=== PATIENT | female | born 1955 | race African-American/Black ===

== ENCOUNTER → 2016-11-16 | Day surgery (SDC) | payer OTHER ==
[~2016-11-16] VITALS: Ht 175.3 cm; Wt 74.8 kg
[~2016-11-16] MED LIST: /PANT40TA OR; AMLO10TA2 PO; AMLO5TAB2 PO; ASCO25TA PO; ASPI325T OR; ASPI81TA83 OR; CALCTAB43 PO; CARV12.5 PO; CIPR25SS OR; COLA100C3 PO; DOCU100C PO; DRIS50002 PO; ECOT81TA5 PO; FERR1TAB7 PO; FERR324T12 PO; FERR325T OR; FOLI1TAB2 PO; FOSA70TA PO; GLUC1000 PO; LIDOCAINE 1% MDV 20ML VIAL As Ordered ONE; LIDOCAINE 1% SDV INJ 30 ML VIAL As Ordered ONE; LIDOCAINE 2% INJ 100 MG/5 ML SDV (FOR ANES.) As Ordered ONE; LISI10TA4 OR; LOPR50TA OR; LOPR50TA PO; LR 1,000 ML IV SCH; METF1000 PO; MICA80TA PO; MIDAZOLAM INJ 2 MG/2 ML VIAL (J2250) As Ordered ONE; NITR0.4S SL; PERC5TAB6 PO; POTA10CA PO; PRAV1TAB39 PO; PROPOFOL 200 MG/20 ML VIAL As Ordered ONE; SENS60TA PO; SIMV40TA2 PO; TORS10TA3 PO; TRAV04OPD OU; TYLE325T5 PO; VALS40TA OR; VITA10002 PO; VITA250L PO; fentaNYL 100 MCG/2 ML INJECTION (J3010) As Ordered ONE
[2016-11-16 13:50] VITALS: BP 141/71
--- NOTE | 2016-11-16 14:33 | REP ---
SPECIMEN RADIOGRAPH RIGHT BREAST NEEDLE LOCALIZATION BIOPSY: 11/16/2016. Clinical history: Clustered microcalcifications upper outer quadrant right breast. Specimen radiograph shows the hook wire in place within the specimen. Adjacent to the hook wire is a clustered group of microcalcifications targeted for this biopsy. Impression: Successful targeting and excisional biopsy of a clustered microcalcific target in the right breast. Signed by Adrian Moore MD 11/16/2016 05:52 P
--- NOTE | 2016-11-16 16:09 | REP ---
RIGHT BREAST LOCALIZATION: The procedure was performed under the direct supervision of Dr. Moore. The patient has a history of a tight grouping of heterogenous microcalcifications at the 12 o'clock position on the right breast seen on a previous mammogram dated 07/31/2016. A stereotactic right breast biopsy was attempted on 08/17/2016, however there was not enough breast tissue thickness to allow for throw of the needle. The risks and benefits of the procedure were explained to the patient and informed consent was obtained. A cranial caudal approach was utilized. The calcifications were localized using mammographic guidance. The skin was prepped and draped in a sterile fashion. 1% Lidocaine was used a local anesthetic. A 7.5 cm Grinnell needle wire system was inserted. Followup mammographic images demonstrate good needle placement. The patient tolerated the procedure well and there were no immediate complications. Reviewed by KERRY Gaviria 11/16/2016 04:54 PEdited and Signed by Adrian Moore MD 11/16/2016 05:46 P
--- NOTE | 2016-11-16 22:52 | RO ---
DATE OF PROCEDURE: 11/16/2016 PREOPERATIVE DIAGNOSIS: Abnormal mammographic microcalcifications right breast, upper outer quadrant. POSTOPERATIVE DIAGNOSIS: Abnormal mammographic microcalcifications right breast, upper outer quadrant. PROCEDURE PERFORMED: Needle directed excisional biopsy of microcalcifications right breast. SURGEON: Dr. Lorenzo Garland QUALITY CONTROL: ANESTHESIA: Local with monitored anesthesia care. INDICATIONS FOR PROCEDURE: The patient is a 60-year-old woman who had undergone mammography with finding of a new cluster of microcalcifications in the upper outer quadrant of the right breast. A stereotactic biopsy was not technically possible because of inadequate breast thickness, and she is now for a needle directed excisional biopsy of calcifications. The patient was sent to the x-ray department where a localizing wire was placed in the right breast. She was then taken to the operating room and placed on the table in a supine position. She received sedation from anesthesia. The right breast, including the localizing wire, was prepped with Chloraprep and draped sterilely. Inspection revealed that the wire entered the upper outer quadrant of the right breast. It was directed at a fairly shallow angle inferiorly and laterally. With manipulation of the breast, there did appear to be some play in the positioning of the wire. Local anesthesia was achieved with 1% Xylocaine without epinephrine. An approximately 3 cm skin incision was made beginning at the localizing wire and extending laterally. The incision was deepened into the subcutaneous tissues. A core of tissue was then excised using scissors. This core was approximately 5-6 cm in length x 2-3 cm in diameter and extended down past the tip of the localizing wire. The needle was then removed and the wire was cut for convenience. A specimen mammogram was obtained with the ViewCast device. The imaging showed that the cluster of microcalcifications was contained within the specimen just past the tip of the hook wire. The specimen was sent for permanent pathology. The wound was inspected and two small bleeding vessels were oversewn with [id number] sutures of #3-0 chromic. A careful inspection of the wound was carried out and several small bleeders were controlled with the electrocautery. Once hemostasis was ensured, the deep portions of the wound were closed with #3-0 chromic. The subcutaneous tissues were approximated with #3-0 chromic and the skin edges were approximated with a running subcuticular #4-0 Vicryl and Steri-Strips. A light dressing was applied. The patient tolerated the procedure well without apparent complication.
== END | disposition home or self-care (01) ==
LOC: M SDC 08:06
PROVIDERS: ATTEND Surgery
DX: R92.0 Mammographic microcalcification found on diagnostic imaging of breast (principal); J34.9 Unspecified disorder of nose and nasal sinuses; R91.8 Other nonspecific abnormal finding of lung field; D64.9 Anemia, unspecified; E11.9 Type 2 diabetes mellitus without complications; I10 Essential (primary) hypertension; E78.5 Hyperlipidemia, unspecified; N20.0 Calculus of kidney; E21.3 Hyperparathyroidism, unspecified; K57.32 Diverticulitis of large intestine without perforation or abscess without bleeding; Z88.8 Allergy status to other drugs, medicaments and biological substances; Z79.899 Other long term (current) drug therapy; Z79.82 Long term (current) use of aspirin; Z85.40 Personal history of malignant neoplasm of unspecified female genital organ; Z92.3 Personal history of irradiation; Z90.710 Acquired absence of both cervix and uterus; Z87.891 Personal history of nicotine dependence

== ENCOUNTER → 2017-01-16 | Outpatient (REF) | payer OTHER ==
[~2017-01-16] MED LIST changes: -LIDOCAINE 1% MDV 20ML VIAL As Ordered ONE; -LIDOCAINE 1% SDV INJ 30 ML VIAL As Ordered ONE; -LIDOCAINE 2% INJ 100 MG/5 ML SDV (FOR ANES.) As Ordered ONE; -LR 1,000 ML IV SCH; -MIDAZOLAM INJ 2 MG/2 ML VIAL (J2250) As Ordered ONE; -PROPOFOL 200 MG/20 ML VIAL As Ordered ONE; -fentaNYL 100 MCG/2 ML INJECTION (J3010) As Ordered ONE
[2017-01-16 13:01] LABS: BASO % 0.5 % (0.0-1.0); EOS # 0.1 K/mm3 (0.0-0.50); EOS % 1.5 % (0.0-3.0); LARGE UNSTAINED CELL # 0.1 K/mm3 (0.0-0.4); LARGE UNSTAINED CELL % 2.3 % (0.0-4.0); LYMPH # 1.6 K/mm3 (1.5-4.5); LYMPH % 32.3 % (24.0-44.0); MEAN CORPUSCULAR HEMOGLOBIN 26.4 pg (27.0-33.0); MEAN CORPUSCULAR HGB CONC 32.4 g/dl (32.0-36.5); MEAN CORPUSCULAR VOLUME 81.3 fl (80.0-96.0); MONO # 0.3 K/mm3 (0.0-0.8); MONO % 6.2 % (0.0-5.0); NEUTROPHILS # 2.7 K/mm3 (1.8-7.7); NEUTROPHILS % 57.2 % (36.0-66.0); PLATELET COUNT, AUTOMATED 246 k/mm3 (150-450); RED CELL DISTRIBUTION WIDTH 17.3 % (11.5-14.5); WHITE BLOOD COUNT 4.7 K/mm3 (4.0-10.0)
[2017-01-16 13:30] LABS: ALBUMIN/GLOBULIN RATIO 1.11 (1.00-1.93); ALKALINE PHOSPHATASE 114 U/L (45-117); ALT/SGPT 21 U/L (12-78); ANION GAP 7 MEQ/L (8-16); AST/SGOT 17 U/L (15-37); BILIRUBIN,TOTAL 0.5 MG/DL (0.2-1.0); BLOOD UREA NITROGEN 13 MG/DL (7-18); CALCIUM LEVEL 12.2 MG/DL (8.8-10.2); CARBON DIOXIDE LEVEL 28 MEQ/L (21-32); CHLORIDE LEVEL 105 MEQ/L (98-107); CHOLESTEROL LEVEL 152 MG/DL (<200); CREATININE FOR GFR 0.66 MG/DL (0.55-1.02); FERRITIN 22 NG/ML (8-252); FREE T4 1.43 NG/DL (0.76-1.46); GLOMERULAR FILTRATION RATE > 60.0 (>45); GLUCOSE, FASTING 114 MG/DL (80-110); PERCENT SATURATION 13.7 % (13.2-37.4); POTASSIUM SERUM 4.4 MEQ/L (3.5-5.1); SODIUM LEVEL 140 MEQ/L (136-145); TOTAL IRON BINDING CAPACITY 388 UG/DL (250-450); TOTAL PROTEIN 7.6 GM/DL (6.4-8.2); TRIGLYCERIDES LEVEL 53 MG/DL (<150)
[2017-01-18 12:27] LABS: GAMMA GLOBULIN % 16.9 % (11.1-18.8)
[2017-01-18 12:28] LABS: ALBUMIN 4.18 GM/DL (3.29-5.55)
== END ==
LOC: M SFHCPLAZ 09:40
PROVIDERS: ATTEND Family Medicine
DX: D50.9 Iron deficiency anemia, unspecified (principal); E21.3 Hyperparathyroidism, unspecified; E78.2 Mixed hyperlipidemia

== ENCOUNTER → 2017-01-29 | Outpatient (CLI) | payer OTHER ==
--- NOTE | 2017-01-30 01:36 | REP ---
Clinical: kidney stones. Technique: Supine abdominal x-ray. Findings: Evaluation is limited by technique. Small left renal calculi are suggested. Right renal calculi or ureteral stones cannot be excluded. Bowel pattern is nonspecific. Post surgical changes are appreciated. Skeletal structures are intact. Impression: Small left renal stones suggested. Further evaluation of the urinary tract system is limited by technique. Signed by Liban Bower MD 01/30/2017 01:28 A
== END ==
LOC: M SMT 09:33
PROVIDERS: ATTEND Urology
DX: N20.0 Calculus of kidney (principal)

== ENCOUNTER → 2017-02-13 | Outpatient (CLI) | payer OTHER ==
--- NOTE | 2017-02-13 14:26 | REP ---
Clinical: Pain. Technique: Frontal view of the pelvis with neutral and frog lateral views of the bilateral hips. Findings: Early moderate arthritic degenerative changes of the bilateral hip joints includes mild joint space narrowing, increase sclerosis to the acetabular roof with marginal spurring and subtle subchondral cystic changes (right greater than left). No acute fracture or dislocation. Impression: Early moderate arthritic degenerative changes (right greater than left). Signed by Liban Bower MD 02/13/2017 02:18 P
--- NOTE | 2017-02-13 15:12 | REP ---
No clinical: Pain. Mass. Technique: Frontal view of the chest with multiple views of the right and left hemithoraces. Findings: Frontal view of the chest demonstrates no acute cardiopulmonary process. Multiple views of the right and left hemithoraces demonstrates no obvious acute rib fracture or pathology. Impression: Normal bilateral rib series Signed by Liban Bower MD 02/13/2017 03:03 P
== END ==
LOC: M RAD 13:23
PROVIDERS: ATTEND Family Medicine
DX: R19.00 Intra-abdominal and pelvic swelling, mass and lump, unspecified site (principal); M16.0 Bilateral primary osteoarthritis of hip

== ENCOUNTER → 2017-02-15 | Outpatient (CLI) | payer OTHER ==
[~2017-02-15] MED LIST changes: +ASPI1TAB PO; -CALCTAB43 PO; +CALCTAB74 PO; -COLA100C3 PO; +COLA100C5 PO; -DOCU100C PO; +DOCU100C16 PO; +FERR325T3 PO; -FOLI1TAB2 PO; +FOLI1TAB4 PO; -METF1000 PO; +METF10004 PO; +PERC5TAB12 PO; -PERC5TAB6 PO; +SENS90TA PO; +STOO100C PO; +VITA500T PO
--- NOTE | 2017-02-15 10:28 | REP ---
Clinical: Right flank mass. Technique: Real time juarez scale and color Doppler evaluation using linear high frequency transducer. Comparison: Multiple CT examinations dating back through 04/12/2015. Findings: A hypoechoic, solid, vascular mass is identified at the level of the kidney which appears to be within the intercostal right flank and measures 2.7 x 2.3 x 3.1 cm. The lesion appears relatively stable when compared to CTs through 04/12/2015. Impression: 3 cm hypoechoic solid vascular nodule in the right flank intercostal space as described above. Surgical excision/biopsy may be warranted. Differential diagnosis includes granuloma as well as slow-growing metastatic focus. Signed by Liban Bower MD 02/15/2017 10:20 A
== END ==
LOC: M RAD 09:27
PROVIDERS: ATTEND Family Medicine
DX: R19.00 Intra-abdominal and pelvic swelling, mass and lump, unspecified site (principal)

== ENCOUNTER 2017-03-23 09:26 | Day surgery (SDC) | payer OTHER ==
[~2017-03-23] VITALS: Ht 175.3 cm; Wt 74.8 kg
[2017-03-23] MEDS ORDERED: LR 1,000 ML IV SCH ×2 (09:45→13:00)
[2017-03-23] MEDS ORDERED: MIDAZOLAM INJ 2 MG/2 ML VIAL (J2250) As Ordered ONE (09:46)
[2017-03-23] MEDS ORDERED: PROPOFOL 200 MG/20 ML VIAL As Ordered ONE (09:46)
[2017-03-23] MEDS ORDERED: fentaNYL 100 MCG/2 ML INJECTION (J3010) As Ordered ONE ×2 (09:46→11:33)
[2017-03-23] MEDS ORDERED: LIDOCAINE 2% INJ 100 MG/5 ML SDV (FOR ANES.) As Ordered ONE (09:46)
[2017-03-23] MEDS ORDERED: LR 1,000 ML IV ONE (10:00)
[2017-03-23] MEDS ORDERED: BUPIVACAINE HCL 0.25% 30 ML VIAL As Ordered ONE (10:39)
[2017-03-23] MEDS ORDERED: ROCURONIUM BROMIDE 50 MG/5 ML VIAL/SYRINGE As Ordered ONE (10:56)
[2017-03-23] MEDS ORDERED: ePHEDrine SULFATE 25 MG/5 ML(5MG/ML) SYRINGE As Ordered ONE ×2 (11:27→12:10)
[2017-03-23] MEDS ORDERED: ONDANSETRON 4MG/2ML VIAL (J2405) As Ordered ONE (12:03)
[2017-03-23] MEDS ORDERED: NEOSTIGMINE 1MG/ML 5 ML SYRINGE (J2710) As Ordered ONE (12:04)
[2017-03-23] MEDS ORDERED: GLYCOPYRROLATE INJ 0.2 MG/ML 2 ML VIAL As Ordered ONE (12:04)
[2017-03-23] MEDS ORDERED: PHENYLephrine HCL 500 MCG/5 ML (100MCG/ML) SYRINGE (J2370) As Ordered ONE (12:10)
[2017-03-23] MEDS ORDERED: ONDANSETRON 4MG/2ML VIAL (J2405) IV PRN (13:00)
[2017-03-23] MEDS ORDERED: ACETAMINOPHEN TAB 650MG DOSE (2X325MG) PO PRN (13:00)
[2017-03-23] MEDS ORDERED: fentaNYL 100 MCG/2 ML INJECTION (J3010) IV PRN (13:00)
[2017-03-23] MEDS ORDERED: IBUPROFEN 400 MG TAB PO PRN (13:00)
[2017-03-23] MEDS ORDERED: NORCO, ANEXSIA 5/325MG TABLET (HYDROcodone/ACETAMINOPHEN) PO PRN (13:00)
[2017-03-23 13:50] VITALS: BP 134/76
--- NOTE | 2017-03-26 11:45 | RO ---
DATE OF PROCEDURE: 03/23/2017 PREOPERATIVE DIAGNOSIS: Right flank mass. POSTOPERATIVE DIAGNOSIS: Submuscular right flank mass. PROCEDURE PERFORMED: Excision of right flank submuscular mass. SURGEON: Dr. Lorenzo Garland ANESTHESIA: General. INDICATIONS FOR THE PROCEDURE: Patient is a 61-year-old woman who was noted on a CT scan over a year ago to have a small nodule in the right lower chest wall/flank. This appeared to lie beneath the muscles adjacent to the tip of the 12th rib. This seems to have increased in size recently, and she is now for excision of this mass. DESCRIPTION OF PROCEDURE: Operative Procedure: The patient was placed under general endotracheal anesthesia. She was rolled into a left lateral decubitus position and supported with a fernandes bag. Pressure points were padded. The mass was palpable just at and slightly superior to the tip of the 12th rib. The patient's right chest and flank were prepped and draped in a sterile fashion. An approximately 5 cm slightly oblique transverse incision was made over the area of the mass. The incision was deepened through the subcutaneous tissues. The fascia was opened. Muscle fibers in the area were spread and held apart with retractors. Lying essentially in the intercostal space between the 11th and 12th ribs, was a smooth, firm mass. This appeared to be well encapsulated. This was dissected free from surrounding structures and removed intact. The mass was roughly egg shaped and 3.3 cm maximally in diameter. This was sent for permanent pathology. The wound was inspected, and hemostasis was ensured. The fascia was approximated bringing together the muscle tissue with interrupted simple sutures of #3-0 Vicryl. The subcutaneous tissues were brought together also with #3-0 Vicryl. 0.25% Marcaine was infiltrated about the wound before closure for some postoperative analgesia. The skin edges were approximated with a running subcuticular #4-0 Vicryl and Steri-Strips. A dressing was applied. The patient tolerated the procedure well without apparent complication. She was awakened in the operating room, extubated, and moved to the recovery room in stable condition. SHELLEY
== END 2017-03-23 14:16 ==
LOC: M SDC 09:26
PROVIDERS: ATTEND Surgery
DX: D36.17 Benign neoplasm of peripheral nerves and autonomic nervous system of trunk, unspecified (principal); I10 Essential (primary) hypertension; E11.9 Type 2 diabetes mellitus without complications; E21.3 Hyperparathyroidism, unspecified; E78.5 Hyperlipidemia, unspecified; D64.9 Anemia, unspecified; N28.89 Other specified disorders of kidney and ureter; G43.909 Migraine, unspecified, not intractable, without status migrainosus; Z85.42 Personal history of malignant neoplasm of other parts of uterus; Z92.3 Personal history of irradiation; Z87.891 Personal history of nicotine dependence; Z88.8 Allergy status to other drugs, medicaments and biological substances; Z79.899 Other long term (current) drug therapy; Z79.82 Long term (current) use of aspirin; Z79.84 Long term (current) use of oral hypoglycemic drugs

== ENCOUNTER → 2017-04-16 | Outpatient (CLI) | payer OTHER ==
--- NOTE | 2017-04-16 21:19 | REP ---
Clinical: Nephrolithiasis. Comparison: 10/14/2015. Findings: Lung bases are clear. Visualized heart and pericardium normal. Liver, spleen, pancreas, gallbladder, and bilateral adrenal glands are normal for noncontrast evaluation. The kidneys demonstrate small bilateral parapelvic cysts and few nonobstructing calculi in the lower pole left kidney measuring up to 3 mm. No definite hydroureter or obstructing ureteral calculi are identified. However, multiple calcifications in the pelvis which likely represent phleboliths as well as surgical clips limit evaluation for distal ureteral calculi. Correlation with urinalysis may be warranted. The enteric system is without obstruction or acute inflammatory process. The pelvis demonstrates distended, otherwise unremarkable bladder and evidence for prior hysterectomy. No pelvic fluid or ascites. Atherosclerotic changes of the aorta and vasculature noted without aneurysm. No free air. Musculoskeletal structures demonstrate age-related degenerative changes. Impression: 1. Kidneys demonstrate suspected small bilateral parapelvic cysts and few nonobstructing left renal calculi up to 3 mm. Presumed phleboliths and few scattered surgical clips are identified in the pelvis without definite ureteral calculi noted. Signed by Liban Bower MD 04/16/2017 09:10 P
== END ==
LOC: M RAD 18:02
PROVIDERS: ATTEND Urology
DX: N20.0 Calculus of kidney (principal)

== ENCOUNTER → 2017-06-04 | Outpatient (REF) | payer OTHER ==
[~2017-06-04] MED LIST changes: +CINA30TA PO
[2017-06-04 21:17] LABS: BASO % 0.6 % (0.0-1.0); EOS # 0.1 10^3/uL (0.0-0.50); EOS % 1.3 % (0.0-3.0); IMMATURE GRANULOCYTE % 0.2 % (0-0); LYMPH # 1.6 10^3/uL (1.5-4.5); MEAN CORPUSCULAR HEMOGLOBIN 26.6 pg (27.0-33.0); MEAN CORPUSCULAR HGB CONC 33.5 g/dl (32.0-36.5); MEAN CORPUSCULAR VOLUME 79.5 fl (80.0-96.0); MONO # 0.4 10^3/uL (0.0-0.8); MONO % 8.8 % (0.0-5.0); NEUTROPHILS # 2.5 10^3/uL (1.8-7.7); NEUTROPHILS % 54.1 % (36.0-66.0); PLATELET COUNT, AUTOMATED 270 10^3/uL (150-450); WHITE BLOOD COUNT 4.7 10^3/uL (4.0-10.0)
[2017-06-04 21:29] LABS: ALBUMIN/GLOBULIN RATIO 1.08 (1.00-1.93); ALKALINE PHOSPHATASE 110 U/L (45-117); ALT/SGPT 18 U/L (12-78); ANION GAP 7 MEQ/L (8-16); AST/SGOT 9 U/L (15-37); BILIRUBIN,TOTAL 0.4 MG/DL (0.2-1.0); BLOOD UREA NITROGEN 11 MG/DL (7-18); CALCIUM LEVEL 11.7 MG/DL (8.8-10.2); CARBON DIOXIDE LEVEL 27 MEQ/L (21-32); CHLORIDE LEVEL 106 MEQ/L (98-107); CREATININE FOR GFR 0.54 MG/DL (0.55-1.02); FERRITIN 52 NG/ML (8-252); GLOMERULAR FILTRATION RATE > 60.0 (>45); GLUCOSE, FASTING 73 MG/DL (80-110); MAGNESIUM LEVEL 1.2 MG/DL (1.8-2.4); PHOSPHORUS LEVEL 2.7 MG/DL (2.5-4.9); POTASSIUM SERUM 4.6 MEQ/L (3.5-5.1); SODIUM LEVEL 140 MEQ/L (136-145); TOTAL PROTEIN 7.7 GM/DL (6.4-8.2)
[2017-06-04 21:45] LABS: VITAMIN B12 LEVEL 1475 PG/ML (247-911)
[2017-06-05 10:40] LABS: PRETREATED FOLATE FOR RBCFOL 14.3 NG/ML
== END ==
LOC: M SFHCPLAZ 14:49
PROVIDERS: ATTEND Family Medicine
DX: E53.8 Deficiency of other specified B group vitamins (principal); D50.9 Iron deficiency anemia, unspecified; E55.9 Vitamin D deficiency, unspecified; E11.9 Type 2 diabetes mellitus without complications; I10 Essential (primary) hypertension; R10.13 Epigastric pain

== ENCOUNTER → 2017-07-06 | Outpatient (REF) | payer OTHER ==
[2017-07-06 11:40] LABS: ALBUMIN 3.9 GM/DL (3.2-5.2); ANION GAP 10 MEQ/L (8-16); BLOOD UREA NITROGEN 13 MG/DL (7-18); CALCIUM LEVEL 12.3 MG/DL (8.8-10.2); CARBON DIOXIDE LEVEL 26 MEQ/L (21-32); CHLORIDE LEVEL 103 MEQ/L (98-107); CREATININE FOR GFR 0.66 MG/DL (0.55-1.02); GLOMERULAR FILTRATION RATE > 60.0 (>45); GLUCOSE, FASTING 102 MG/DL (80-110); MAGNESIUM LEVEL 1.1 MG/DL (1.8-2.4); PHOSPHORUS LEVEL 2.5 MG/DL (2.5-4.9); POTASSIUM SERUM 5.1 MEQ/L (3.5-5.1); SODIUM LEVEL 139 MEQ/L (136-145)
== END ==
LOC: M SFHCPLAZ 08:28
PROVIDERS: ATTEND Family Medicine
DX: E21.3 Hyperparathyroidism, unspecified (principal)

== ENCOUNTER 2017-07-17 09:12 | Day surgery (SDC) | payer OTHER ==
[~2017-07-17] VITALS: Ht 175.3 cm; Wt 75.0 kg
[2017-07-17] MEDS ORDERED: NS 1,000 ML IV ONE (09:45)
[2017-07-17] MEDS ORDERED: PROPOFOL 200 MG/20 ML VIAL As Ordered ONE (11:22)
[2017-07-17] MEDS ORDERED: LIDOCAINE 2% INJ 100 MG/5 ML SDV (FOR ANES.) As Ordered ONE (11:22)
--- NOTE | 2017-07-17 11:24 | ROOR ---
Patient Name: Zeyad Michel Procedure Date: 07/17/2017 11:09 AM Date of : 1955 Age: 61 Room: [facility] Gender: Female Note Status: Finalized Procedure: Upper GI endoscopy Indications: Heartburn, Previously treated for Helicobacter pylori Providers: Red GOLDEN MD Referring MD: Harshad Pérez MD Requesting Provider: Medicines: Monitored Anesthesia Care Complications: No immediate complications. Procedure: Pre-Anesthesia Assessment: - The heart rate, respiratory rate, oxygen saturations, blood pressure, adequacy of pulmonary ventilation, and response to care were monitored throughout the procedure. The Endoscope was introduced through the mouth, and advanced to the second part of duodenum. The upper GI endoscopy was accomplished without difficulty. The patient tolerated the procedure well. Findings: A small hiatal hernia was present. The esophagus was normal. The stomach was normal. The examined duodenum was normal. Biopsies were taken with a cold forceps in the gastric antrum for Helicobacter pylori testing. Impression: - Normal esophagus. - Normal stomach with a small hiatal hernia. - Normal examined duodenum. - Biopsies were taken with a cold forceps for Helicobacter pylori testing. Recommendation: - Telephone endoscopist for pathology results in 2 weeks. - Follow an antireflux regimen. - Your magnesium is a bit low. I would recommend changing your Omeprazole to Zantac. Hold Omeprazole, start Zantac/Ranitidine. - (the script was sent to your pharmacy on file) Red Golden MD Red GOLDEN MD 07/17/2017 11:24:03 AM This report has been signed electronically. Number of Addenda: 0 Note Initiated On: 07/17/2017 11:09 AM Estimated Blood Loss: Estimated blood loss: none.
--- NOTE | 2017-07-17 11:56 | ROOR ---
Patient Name: Zeyad Michel Procedure Date: 07/17/2017 11:10 AM Date of : 1955 Age: 61 Room: [facility] Gender: Female Note Status: Finalized Procedure: Colonoscopy Indications: High risk colon cancer surveillance: Personal history of colonic polyps Providers: Red GOLDEN MD Referring MD: Harshad Pérez MD Requesting Provider: Medicines: Monitored Anesthesia Care Complications: No immediate complications. Procedure: Pre-Anesthesia Assessment: - The heart rate, respiratory rate, oxygen saturations, blood pressure, adequacy of pulmonary ventilation, and response to care were monitored throughout the procedure. The Colonoscope was introduced through the anus and advanced to 5 cm into the ileum. The colonoscopy was somewhat difficult due to multiple diverticula in the colon and inadequate bowel prep. Successful completion of the procedure was aided by lavage. The patient tolerated the procedure well. The quality of the bowel preparation was inadequate and required lavage for completion. Prep remains suboptimal after lavage. Findings: The perianal and digital rectal examinations were normal. (EXAM: Complete, PREP: Suboptimal) Two sessile polyps were found in the sigmoid colon and splenic flexure. The polyps were 4 to 6 mm in size. These polyps were removed with a cold snare. Resection and retrieval were complete. Multiple small and large-mouthed diverticula were found in the sigmoid colon. There was narrowing of the colon in association with the diverticular opening. There was evidence of diverticular spasm. A diffuse area of mild melanosis was found in the entire colon. Impression: - (EXAM: Complete, PREP: Suboptimal after extensive lavage) - Two 4 to 6 mm polyps in the sigmoid colon and at the splenic flexure, removed with a cold snare. Resected and retrieved. - Severe diverticulosis in the sigmoid colon. There was narrowing of the colon in association with the diverticular opening. There was evidence of diverticular spasm. - Moderate internal hemorrhoids. Recommendation: - Repeat colonoscopy in 1 year because the bowel preparation was suboptimal. - Telephone endoscopist for pathology results in 2 weeks. Red Golden MD Red GOLDEN MD 07/17/2017 11:56:11 AM This report has been signed electronically. Number of Addenda: 0 Note Initiated On: 07/17/2017 11:10 AM Estimated Blood Loss: Estimated blood loss: none.
[2017-07-17 13:01] VITALS: BP 144/83
== END 2017-07-17 12:30 | disposition home or self-care (01) ==
LOC: M OPP 09:12
PROVIDERS: ATTEND Internal Medicine Gastroenterology
DX: Z12.11 Encounter for screening for malignant neoplasm of colon (principal); Z86.010 Personal history of colon polyps; D12.5 Benign neoplasm of sigmoid colon; D12.3 Benign neoplasm of transverse colon; K57.30 Diverticulosis of large intestine without perforation or abscess without bleeding; K63.89 Other specified diseases of intestine; R12 Heartburn; K44.9 Diaphragmatic hernia without obstruction or gangrene; Z87.11 Personal history of peptic ulcer disease; K29.00 Acute gastritis without bleeding; K29.50 Unspecified chronic gastritis without bleeding; R00.8 Other abnormalities of heart beat; R07.89 Other chest pain; I10 Essential (primary) hypertension; E78.5 Hyperlipidemia, unspecified; E11.9 Type 2 diabetes mellitus without complications; E03.9 Hypothyroidism, unspecified; K57.32 Diverticulitis of large intestine without perforation or abscess without bleeding; D64.9 Anemia, unspecified; E53.8 Deficiency of other specified B group vitamins; E55.9 Vitamin D deficiency, unspecified; R91.8 Other nonspecific abnormal finding of lung field; G43.909 Migraine, unspecified, not intractable, without status migrainosus; Z78.0 Asymptomatic menopausal state; Z85.41 Personal history of malignant neoplasm of cervix uteri; Z92.3 Personal history of irradiation; Z87.442 Personal history of urinary calculi; F17.210 Nicotine dependence, cigarettes, uncomplicated; Z88.8 Allergy status to other drugs, medicaments and biological substances; Z79.82 Long term (current) use of aspirin; Z79.899 Other long term (current) drug therapy; Z79.84 Long term (current) use of oral hypoglycemic drugs; Z80.42 Family history of malignant neoplasm of prostate

== ENCOUNTER → 2017-07-20 | Outpatient (CLI) | payer OTHER ==
--- NOTE | 2017-07-21 07:16 | REP ---
CERVICAL SPINE, EIGHT VIEWS: HISTORY: Disc degeneration. COMPARISON: 09/02/2010 There is no acute fracture or subluxation. The C3-4 through C6-7 intervertebral discs are decreased in height consistent with disc degeneration. Osteophytes are present on C5 through C7. There is narrowing of the left C3, C6 and right C6 neural foramina secondary to uncinate process hypertrophy. There is loss of the normal lordotic curve. IMPRESSION: Degenerative change as described above. Signed by William Marcos MD 07/21/2017 08:58 A
== END ==
LOC: M RAD 18:52
PROVIDERS: ATTEND Family Medicine
DX: M50.30 Other cervical disc degeneration, unspecified cervical region (principal)

== ENCOUNTER → 2017-07-24 | Outpatient (CLI) | payer OTHER ==
--- NOTE | 2017-07-24 08:47 | REPMRS ---
Patient History The patient states she has not had a clinical breast exam in over a year. Patient has history of cervical cancer at age 34. Family history of prostate cancer in father at age 87. Benign radio exam breast specimen, November 16, 2016. Benign localization of breast nodule of the right breast, November 16, 2016. Stereotatic Loc for ea Lesion of the right breast, August 17, 2016. Benign stereotatic loc for ea lesion of the right breast, November 11, 2012. Digital Woman Screen Mammo: July 24, 2017 - Exam #: [id number] Bilateral CC and MLO view(s) were taken. Technologist: Nayla Crenshaw, Technologist Prior study comparison: July 31, 2016, right breast digital mammo diagnostic unilateral, performed at [facility]. July 25, 2016, digital woman screen mammo performed at [facility]. FINDINGS: There are scattered fibroglandular densities. There has been no change in the appearance of the mammogram from the prior studies. There is a mild amount of residual fibroglandular tissue which is fairly symmetric. There is no interval development of dominant mass, architectural distortion, or clustered microcalcification suggestive of malignancy. The two prior right breast stereotactic clips are unchanged and the interval excisional biopsy of a calcific cluster right breast on 11/16/16 has removed all those central right breast calcifications. No new finding. Scattered lymph nodes are seen in the left axilla. There are a few scattered, small, benign calcifications of doubtful clinical significance. No significant changes when compared with prior studies. ASSESSMENT: BI-RADS/ACR category 2 mammogram. Benign finding(s). Recommendation Routine screening mammogram in 1 year (for women over age 40). This mammogram was interpreted with the aid of an FDA-approved computer-aided dectection system. A. Negative x-ray reports should not delay biopsy if a dominant or clinically suspicious mass is present. B. Four to eight percent of cancers are not identified by mammography. C. Adenosis and dense breast may obscure an underlying neoplasm. Electronically Signed By: Adrian Moore MD 07/24/17 [id number]
== END ==
LOC: M WHC 06:41
PROVIDERS: ATTEND Family Medicine
DX: Z12.31 Encounter for screening mammogram for malignant neoplasm of breast (principal)

== ENCOUNTER → 2017-07-30 | Outpatient (CLI) | payer OTHER ==
[2017-07-30 20:25] LABS: ALBUMIN 3.4 GM/DL (3.2-5.2); ANION GAP 10 MEQ/L (8-16); BLOOD UREA NITROGEN 10 MG/DL (7-18); CALCIUM LEVEL 11.1 MG/DL (8.8-10.2); CARBON DIOXIDE LEVEL 27 MEQ/L (21-32); CHLORIDE LEVEL 105 MEQ/L (98-107); CREATININE FOR GFR 0.62 MG/DL (0.55-1.02); GLOMERULAR FILTRATION RATE > 60.0 (>45); GLUCOSE, FASTING 135 MG/DL (80-110); PHOSPHORUS LEVEL 2.2 MG/DL (2.5-4.9); POTASSIUM SERUM 4.6 MEQ/L (3.5-5.1); SODIUM LEVEL 142 MEQ/L (136-145)
== END ==
LOC: M WUC 17:57
PROVIDERS: ATTEND Family Medicine
DX: E21.3 Hyperparathyroidism, unspecified (principal)

== ENCOUNTER → 2017-08-31 | Outpatient (CLI) | payer OTHER ==
[2017-08-31 17:18] LABS: ALBUMIN 3.9 GM/DL (3.2-5.2); ANION GAP 9 MEQ/L (8-16); BLOOD UREA NITROGEN 15 MG/DL (7-18); CALCIUM LEVEL 10.6 MG/DL (8.8-10.2); CARBON DIOXIDE LEVEL 28 MEQ/L (21-32); CHLORIDE LEVEL 103 MEQ/L (98-107); CREATININE FOR GFR 0.79 MG/DL (0.55-1.02); GLOMERULAR FILTRATION RATE > 60.0 (>45); GLUCOSE, FASTING 101 MG/DL (80-110); MAGNESIUM LEVEL 1.4 MG/DL (1.8-2.4); PHOSPHORUS LEVEL 2.4 MG/DL (2.5-4.9); POTASSIUM SERUM 4.3 MEQ/L (3.5-5.1); SODIUM LEVEL 140 MEQ/L (136-145)
[2017-08-31 18:04] LABS: PTH INTACT 237.7 PG/ML (14.0-72.0)
== END ==
LOC: M LAB 16:23
DX: E21.3 Hyperparathyroidism, unspecified (principal)
CPT/HCPCS: 83735

== ENCOUNTER 2017-09-03 08:02 | Outpatient (CLI) | payer OTHER ==
[2017-09-03] MEDS: ZOLEDRONIC ACID 5 MG in APPROPRIATE DILUENT 1 EA IV (08:35)
== END 2017-09-03 09:30 | disposition home or self-care (01) ==
LOC: M INFU 08:02
DX: M85.80 Other specified disorders of bone density and structure, unspecified site (principal); Z88.8 Allergy status to other drugs, medicaments and biological substances; Z79.82 Long term (current) use of aspirin; Z79.899 Other long term (current) drug therapy
CPT/HCPCS: 96365

== ENCOUNTER → 2017-10-03 | Outpatient (CLI) | payer OTHER ==
[2017-10-03 20:11] LABS: ALBUMIN 3.7 GM/DL (3.2-5.2); ANION GAP 9 MEQ/L (8-16); BLOOD UREA NITROGEN 18 MG/DL (7-18); CALCIUM LEVEL 9.8 MG/DL (8.8-10.2); CARBON DIOXIDE LEVEL 29 MEQ/L (21-32); CHLORIDE LEVEL 105 MEQ/L (98-107); CREATININE FOR GFR 0.71 MG/DL (0.55-1.30); GLOMERULAR FILTRATION RATE > 60.0 (>45); GLUCOSE, FASTING 87 MG/DL (70-100); MAGNESIUM LEVEL 1.7 MG/DL (1.8-2.4); PHOSPHORUS LEVEL 3.5 MG/DL (2.5-4.9); SODIUM LEVEL 143 MEQ/L (136-145)
[2017-10-03 22:10] LABS: PTH INTACT 268.7 PG/ML (18.5-88.0)
== END ==
LOC: M WUC 18:03
DX: E21.3 Hyperparathyroidism, unspecified (principal)
CPT/HCPCS: 83735

== ENCOUNTER 2017-12-05 09:11 | Day surgery (SDC) | payer OTHER ==
[2017-12-05] MEDS: TRIAMCINOLONE PRES FR 40 MG/ML 1ML(TRIESENCE)(OR EYE ONLY)(J3300 PER 1MG) As Ordered (06:54)
[2017-12-05] MEDS: MOXIFLOXACIN IN BSS 0.25MG/0.25ML INTRACAMERAL INJ (OR EYE ONLY)(J2280) As Ordered (06:55)
[~2017-12-05 09:11] MED LIST changes: -/PANT40TA OR; +ACETAMINOPHEN 325 MG TAB PO; -AMLO10TA2 PO; -AMLO5TAB2 PO; -ASCO25TA PO; -ASPI1TAB PO; -ASPI325T OR; -ASPI81TA83 OR; -CALCTAB74 PO; -CARV12.5 PO; -CINA30TA PO; -CIPR25SS OR; -COLA100C5 PO; -DOCU100C16 PO; -DRIS50002 PO; -ECOT81TA5 PO; -FERR1TAB7 PO; -FERR324T12 PO; -FERR325T OR; -FERR325T3 PO; -FOLI1TAB4 PO; -FOSA70TA PO; -GLUC1000 PO; -LISI10TA4 OR; -LOPR50TA OR; -LOPR50TA PO; -METF10004 PO; -MICA80TA PO; -NITR0.4S SL; -PERC5TAB12 PO; +PHENYLEPHRINE HCL 10 % OPHTH. SOL 5ML OS; -POTA10CA PO; -PRAV1TAB39 PO; -SENS60TA PO; -SENS90TA PO; -SIMV40TA2 PO; -STOO100C PO; -TORS10TA3 PO; -TRAV04OPD OU; -TYLE325T5 PO; -VALS40TA OR; -VITA10002 PO; -VITA250L PO; -VITA500T PO
[2017-12-05] MEDS: LIDOCAINE 3.5 % 1ML OPHTH TOPICAL GEL OU (11:03)
[2017-12-05] MEDS: OFLOXACIN 0.3 % (OCUFLOX) OPTH SOL 5ML OS (11:03)
[2017-12-05] MEDS: CYCLOPENTOLATE 2% OPHTH SOLN 2ML BTL OS (11:03)
[2017-12-05] MEDS: PHENYLEPHRINE 2.5% OPHTH SOL 2ML OS (11:04)
[2017-12-05] MEDS: TROPICAMIDE 1% OPHTH SOLN 2ML OS (11:05)
[2017-12-05 11:14] LABS: BEDSIDE GLUCOSE 118 MG/DL (80-115)
[2017-12-05] MEDS ORDERED: fentaNYL 100 MCG/2 ML INJECTION (J3010) As Ordered (11:34)
[2017-12-05] MEDS ORDERED: MIDAZOLAM INJ 2 MG/2 ML VIAL (J2250) As Ordered (11:35)
[2017-12-05] MEDS: POVIDONE-IODINE 5% OPHTH PREP SOL 30ML As Ordered (12:04)
[2017-12-05] MEDS: LIDOCAINE 1% SDV 5 ML VIAL As Ordered (12:10)
[2017-12-05] MEDS: HEALON DUET (HEALON 10MG/ML 0.55ML & HEALON ENDOCOAT 30MG/ML 0.85ML) As Ordered (12:10)
[2017-12-05] MEDS: CEFUROXIME 1MG/0.1ML INTRACAMERAL INJ As Ordered (12:11)
[2017-12-05] MEDS: BSS with VANC/TOB/EPI for EYE CASES IR (12:11)
[2017-12-05] MEDS: PROPARACAINE 0.5% OPHTH SOL 15ML OS (12:48)
[2017-12-05] MEDS: AcetaZOLAMIDE 500 MG ER CAP PO (12:50)
[2017-12-05] MEDS: KETOROLAC 0.5% OPHTH SOLN OS (12:53)
[2017-12-05] MEDS ORDERED: TRIMETHOBENZAMIDE 300 MG CAP PO (13:00)
[2017-12-05] MEDS ORDERED: ACETAMINOPHEN TAB 650MG DOSE (2X325MG) PO (13:00)
[2017-12-05] MEDS ORDERED: LR 1,000 ML IV (13:00)
[2017-12-05] MEDS ORDERED: ONDANSETRON 4MG/2ML VIAL (J2405) IV (13:00)
== END 2017-12-05 13:10 | disposition home or self-care (01) ==
LOC: M SDC 09:11
DX: H26.9 Unspecified cataract (principal); H57.03 Miosis; H40.9 Unspecified glaucoma; I49.9 Cardiac arrhythmia, unspecified; I10 Essential (primary) hypertension; E78.00 Pure hypercholesterolemia, unspecified; E11.9 Type 2 diabetes mellitus without complications; E03.9 Hypothyroidism, unspecified; E04.1 Nontoxic single thyroid nodule; K57.32 Diverticulitis of large intestine without perforation or abscess without bleeding; K21.9 Gastro-esophageal reflux disease without esophagitis; D64.9 Anemia, unspecified; Z88.8 Allergy status to other drugs, medicaments and biological substances; Z79.899 Other long term (current) drug therapy; Z79.84 Long term (current) use of oral hypoglycemic drugs; Z92.21 Personal history of antineoplastic chemotherapy; Z87.891 Personal history of nicotine dependence; Z90.710 Acquired absence of both cervix and uterus
CPT/HCPCS: 66982

== ENCOUNTER 2017-12-19 11:36 | Day surgery (SDC) | payer OTHER ==
[~2017-12-19 11:36] MED LIST changes: +MIDAZOLAM INJ 2 MG/2 ML VIAL (J2250) As Ordered; +PHENYLEPHRINE HCL 10 % OPHTH. SOL 5ML OD; -PHENYLEPHRINE HCL 10 % OPHTH. SOL 5ML OS; +PROPARACAINE 0.5% OPHTH SOL 15ML OD; +fentaNYL 100 MCG/2 ML INJECTION (J3010) As Ordered
[2017-12-19] MEDS ORDERED: LIDOCAINE 1% MDV 20ML VIAL SQ (11:45)
[2017-12-19 12:34] LABS: BEDSIDE GLUCOSE 96 MG/DL (80-115)
[2017-12-19] MEDS: LIDOCAINE 3.5 % 1ML OPHTH TOPICAL GEL OU (12:40)
[2017-12-19] MEDS: CYCLOPENTOLATE 2% OPHTH SOLN 2ML BTL OD (12:42)
[2017-12-19] MEDS: TROPICAMIDE 1% OPHTH SOLN 2ML OD (12:42)
[2017-12-19] MEDS: PHENYLEPHRINE 2.5% OPHTH SOL 2ML OD (12:42)
[2017-12-19] MEDS: OFLOXACIN 0.3 % (OCUFLOX) OPTH SOL 5ML OD (12:42)
[2017-12-19] MEDS: LIDOCAINE 1% SDV 5 ML VIAL As Ordered (14:13)
[2017-12-19] MEDS: CEFUROXIME 1MG/0.1ML INTRACAMERAL INJ As Ordered (14:13)
[2017-12-19] MEDS: POVIDONE-IODINE 5% OPHTH PREP SOL 30ML As Ordered (14:13)
[2017-12-19] MEDS: BSS with VANC/TOB/EPI for EYE CASES IR (14:13)
[2017-12-19] MEDS: HEALON DUET (HEALON 10MG/ML 0.55ML & HEALON ENDOCOAT 30MG/ML 0.85ML) As Ordered (14:14)
[2017-12-19] MEDS ORDERED: HEALON DUET (HEALON 10MG/ML 0.55ML & HEALON ENDOCOAT 30MG/ML 0.85ML) As Ordered (14:21)
[2017-12-19] MEDS ORDERED: TRIMETHOBENZAMIDE 300 MG CAP PO (15:00)
[2017-12-19] MEDS ORDERED: KETOROLAC 0.5% OPHTH SOLN OD (15:00)
[2017-12-19] MEDS ORDERED: AcetaZOLAMIDE 500 MG ER CAP PO (15:00)
== END 2017-12-19 16:00 | disposition home or self-care (01) ==
LOC: M SDC 11:36
DX: H25.9 Unspecified age-related cataract (principal); H40.811 Glaucoma with increased episcleral venous pressure, right eye; I10 Essential (primary) hypertension; E78.00 Pure hypercholesterolemia, unspecified; K21.9 Gastro-esophageal reflux disease without esophagitis; R01.1 Cardiac murmur, unspecified; E11.9 Type 2 diabetes mellitus without complications; E55.9 Vitamin D deficiency, unspecified; E53.9 Vitamin B deficiency, unspecified; Z79.82 Long term (current) use of aspirin; Z79.899 Other long term (current) drug therapy; Z79.84 Long term (current) use of oral hypoglycemic drugs
CPT/HCPCS: 66984

== ENCOUNTER → 2018-07-20 | Outpatient (CLI) | payer OTHER ==
[2018-07-20 10:40] LABS: BASO % 0.5 % (0.0-1.0); EOS # 0.1 10^3/uL (0.0-0.50); EOS % 1.7 % (0.0-3.0); HEMATOCRIT 37.4 % (36.0-47.0); HEMOGLOBIN 12.5 g/dl (12.0-15.5); IMMATURE GRANULOCYTE % 0.2 % (0-3.0); LYMPH # 1.3 10^3/uL (1.5-4.5); LYMPH % 30.1 % (24.0-44.0); MEAN CORPUSCULAR HEMOGLOBIN 27.2 pg (27.0-33.0); MEAN CORPUSCULAR HGB CONC 33.4 g/dl (32.0-36.5); MEAN CORPUSCULAR VOLUME 81.5 fl (80.0-96.0); MONO # 0.4 10^3/uL (0.0-0.8); MONO % 8.6 % (0.0-5.0); NEUTROPHILS # 2.5 10^3/uL (1.8-7.7); NEUTROPHILS % 58.9 % (36.0-66.0); PLATELET COUNT, AUTOMATED 234 10^3/uL (150-450); RED BLOOD COUNT 4.59 10^6/uL (4.00-5.40); RED CELL DISTRIBUTION WIDTH 14.6 % (11.5-14.5); RETIC HEMOGLOBIN EQUIVALENT 32.8 pg (24-36); RETICULOCYTE # 56.5 10^9/L (17-77); RETICULOCYTE % 1.2 % (0.5-1.5); WHITE BLOOD COUNT 4.2 10^3/uL (4.0-10.0)
[2018-07-20 10:50] LABS: INR 0.89; PROTHROMBIN TIME 12.1 SECONDS (12.1-14.4)
[2018-07-20 10:51] LABS: PARTIAL THROMBOPLASTIN TIME 26.4 SECONDS (25.4-37.6)
[2018-07-20 11:00] LABS: ALBUMIN 3.9 GM/DL (3.2-5.2); ANION GAP 9 MEQ/L (8-16); BLOOD UREA NITROGEN 11 MG/DL (7-18); C REACTIVE PROTEIN QUANTITATIV < 0.30 MG/DL (0.00-0.30); CALCIUM LEVEL 11.2 MG/DL (8.8-10.2); CARBON DIOXIDE LEVEL 27 MEQ/L (21-32); CHLORIDE LEVEL 107 MEQ/L (98-107); CHOLESTEROL LEVEL 164 MG/DL (<200); CHOLESTEROL RISK RATIO 2.877 (<5); CPK CREATINE PHOSPHOKINASE 136 U/L (26-192); CREATININE FOR GFR 0.63 MG/DL (0.55-1.30); GLOMERULAR FILTRATION RATE > 60.0 (>45); GLUCOSE, FASTING 125 MG/DL (70-100); HDL CHOLESTEROL 57 MG/DL (>40); LDL CHOLESTEROL 95 MG/DL (<100); MAGNESIUM LEVEL 1.5 MG/DL (1.8-2.4); NON-HDL-C 107 MG/DL; PHOSPHORUS LEVEL 2.6 MG/DL (2.5-4.9); POTASSIUM SERUM 4.6 MEQ/L (3.5-5.1); SODIUM LEVEL 143 MEQ/L (136-145); TRIGLYCERIDES LEVEL 59 MG/DL (<150)
[2018-07-22 12:09] LABS: PTH INTACT 242.1 PG/ML (18.5-88.0)
== END ==
LOC: M WUC 08:47
DX: E21.3 Hyperparathyroidism, unspecified (principal); D50.9 Iron deficiency anemia, unspecified; I10 Essential (primary) hypertension; E78.2 Mixed hyperlipidemia
CPT/HCPCS: 82550

== ENCOUNTER 2018-07-24 11:22 | Emergency (ER) | payer OTHER ==
[2018-07-24 12:01] LABS: KETONE, URINE AUTO RFX NEGATIVE (NEGATIVE); MUCUS, URINE RFX SMALL (NEGATIVE); NITRITE, URINE AUTO RFX NEGATIVE (NEGATIVE); RBC, URINE AUTO RFX TNTC /HPF (0-3); SPECIFIC GRAVITY UR AUTO RFX 1.012 (1.002-1.035); SQUAM EPITHELIAL CELL UR AURFX 0 /HPF (0-6)
[2018-07-24 12:05] LABS: BASO % 0.5 % (0.0-1.0); EOS # 0.1 10^3/uL (0.0-0.50); HEMATOCRIT 38.7 % (36.0-47.0); HEMOGLOBIN 13.2 g/dl (12.0-15.5); IMMATURE GRANULOCYTE % 0.5 % (0-3.0); LYMPH # 1.4 10^3/uL (1.5-4.5); MEAN CORPUSCULAR HEMOGLOBIN 27.5 pg (27.0-33.0); MEAN CORPUSCULAR HGB CONC 34.1 g/dl (32.0-36.5); MEAN CORPUSCULAR VOLUME 80.6 fl (80.0-96.0); MONO # 0.5 10^3/uL (0.0-0.8); MONO % 8.1 % (0.0-5.0); NEUTROPHILS # 3.7 10^3/uL (1.8-7.7); NEUTROPHILS % 64.9 % (36.0-66.0); PLATELET COUNT, AUTOMATED 240 10^3/uL (150-450); RED CELL DISTRIBUTION WIDTH 14.6 % (11.5-14.5); WHITE BLOOD COUNT 5.8 10^3/uL (4.0-10.0)
[2018-07-24] MEDS: MORPHINE 2 MG/ML 1ML SYRINGE (J2270) IV ×3 (12:17→16:40)
[2018-07-24] MEDS: NS 1,000 ML IV (12:23)
[2018-07-24 12:26] LABS: ALBUMIN 4.1 GM/DL (3.2-5.2); ALBUMIN/GLOBULIN RATIO 1.08 (1.00-1.93); ALKALINE PHOSPHATASE 75 U/L (45-117); ALT/SGPT 29 U/L (12-78); ANION GAP 7 MEQ/L (8-16); AST/SGOT 35 U/L (7-37); BILIRUBIN,DIRECT < 0.1 MG/DL (0.0-0.2); BILIRUBIN,TOTAL 0.6 MG/DL (0.2-1.0); BLOOD UREA NITROGEN 17 MG/DL (7-18); CALCIUM LEVEL 11.4 MG/DL (8.8-10.2); CARBON DIOXIDE LEVEL 26 MEQ/L (21-32); CHLORIDE LEVEL 105 MEQ/L (98-107); CREATININE FOR GFR 0.69 MG/DL (0.55-1.30); GLOMERULAR FILTRATION RATE > 60.0 (>45); GLUCOSE, FASTING 124 MG/DL (70-100); LIPASE 200 U/L (73-393); POTASSIUM SERUM 5.8 MEQ/L (3.5-5.1); SODIUM LEVEL 138 MEQ/L (136-145); TOTAL PROTEIN 7.9 GM/DL (6.4-8.2)
[2018-07-24 12:30] LABS: LEUKOCYTE ESTERASE UR AUTO RFX TRACE (NEGATIVE); WBC, URINE AUTO RFX 125 /HPF (0-3)
== END 2018-07-24 17:55 | disposition home or self-care (01) ==
LOC: M ED 11:22
DX: N20.1 Calculus of ureter (principal); N13.39 Other hydronephrosis; R11.0 Nausea; I10 Essential (primary) hypertension; E11.9 Type 2 diabetes mellitus without complications; K21.9 Gastro-esophageal reflux disease without esophagitis; Z87.442 Personal history of urinary calculi; Z96.0 Presence of urogenital implants; Z88.8 Allergy status to other drugs, medicaments and biological substances; Z79.899 Other long term (current) drug therapy; Z79.84 Long term (current) use of oral hypoglycemic drugs; Z79.82 Long term (current) use of aspirin
CPT/HCPCS: J2270

== ENCOUNTER → 2018-09-02 | Outpatient (CLI) | payer OTHER ==
[~2018-09-02] MED LIST changes: +/PANT40TA OR; -ACETAMINOPHEN 325 MG TAB PO; +AMLO10TA5 PO; +AMLO5TAB6 PO; +ASCO25TA PO; +ASPI1TAB PO; +ASPI325T OR; +ASPI81TA83 OR; +CALCTAB74 PO; +CARV12.5 PO; +CINA30TA PO; +CIPR-249 PO; +CIPR25SS OR; +COLA100C5 PO; +DOCU100C16 PO; +DRIS50003 PO; +ECOT81TA5 PO; +FERR1TAB7 PO; +FERR324T12 PO; +FERR325T OR; +FERR325T3 PO; +FLOM0.4C39 PO; +FOLI1TAB11 PO; +FOSA70TA PO; +GLUC1000 PO; +KLOR10TA76 PO; +LISI10TA4 OR; +LOPR50TA OR; +LOPR50TA PO; +MAGN400C PO; +MAGOXIDE PO; +METF10004 PO; +MICA80TA PO; -MIDAZOLAM INJ 2 MG/2 ML VIAL (J2250) As Ordered; +NITR0.4S SL; +NORCOTAB PO; +OMEP40CA2; +PERC5TAB12 PO; -PHENYLEPHRINE HCL 10 % OPHTH. SOL 5ML OD; +PRAV1TAB39 PO; -PROPARACAINE 0.5% OPHTH SOL 15ML OD; +RANI-280; +SENS60TA PO; +SENS90TA PO; +SIMV40TA2 PO; +STOO100C PO; +TORS10TA3 PO; +TRAV04OPD OU; +TYLE325T5 PO; +VALS40TA OR; +VITA10002 PO; +VITA250L PO; +VITA500T PO; +VITA500T3 PO; +ZANTTAB PO; +ZOFR4TAB14 PO; -fentaNYL 100 MCG/2 ML INJECTION (J3010) As Ordered
--- NOTE | 2018-09-02 15:21 | REPMRS ---
Patient History The patient states she has not had a clinical breast exam in over a year. Family history of prostate cancer at age 87 in father. Benign radio exam breast specimen, November 16, 2016. Benign localization of breast nodule of the right breast, November 16, 2016. Stereotatic Loc for ea Lesion of the right breast, August 17, 2016. Benign stereotatic loc for ea lesion of the right breast, November 11, 2012. Digital Woman Screen Mammo: September 02, 2018 - Exam #: [id number] Bilateral CC and MLO view(s) were taken. Technologist: Didi De La Fuente Technologist Prior study comparison: July 24, 2017, digital woman screen mammo performed at [facility]. July 31, 2016, right breast digital mammo diagnostic unilateral, performed at [facility]. October 19, 2014, digital woman screen mammo performed at [facility]. FINDINGS: There are scattered fibroglandular densities. There are two needle biopsy marker clips projecting in the right superior central breast unchanged. There has been no change in the appearance of the mammogram from the prior studies. There is a mild amount of scattered fibroglandular density which is fairly symmetric. There is no interval development of dominant mass, architectural distortion, or clustered microcalcification suggestive of malignancy. 3-D tomosynthesis shows no additional findings. Assessment: BI-RADS/ACR category 2 mammogram. Benign finding(s). Recommendation Routine screening mammogram of both breasts in 1 year (for women over age 40). This patient's Lifetime Breast Cancer RIsk is estimated at 5.2 %. This mammogram was interpreted with the aid of an FDA-approved computer-aided dectection system. Electronically Signed By: Kristopher López MD 09/02/18 0326
== END ==
LOC: M WHC 09:35
PROVIDERS: ATTEND Family Medicine
DX: Z12.31 Encounter for screening mammogram for malignant neoplasm of breast (principal); Z86.018 Personal history of other benign neoplasm

== ENCOUNTER 2018-09-09 16:04 | Outpatient (CLI) | payer OTHER ==
[~2018-09-09] VITALS: Ht 177.8 cm; Wt 93.0 kg
[2018-09-09 16:45] VITALS: BP 137/85
[2018-09-09] MEDS ORDERED: ZOLEDRONIC ACID 5 MG in APPROPRIATE DILUENT 1 EA IV ONE (17:00)
[2018-09-09 17:03] LABS: APPEARANCE, URINE CLEAR (CLEAR); BACTERIA, URINE AUTO NEGATIVE (NEGATIVE); BILIRUBIN, URINE AUTO NEGATIVE (NEGATIVE); BLOOD, URINE BLOOD NEGATIVE (NEGATIVE); COLOR, URINE YELLOW (YELLOW); GLUCOSE, URINE (UA) AUTO NEGATIVE (NEGATIVE); KETONE, URINE AUTO NEGATIVE (NEGATIVE); LEUKOCYTE ESTERASE, URINE AUTO NEGATIVE (NEGATIVE); NITRITE, URINE AUTO NEGATIVE (NEGATIVE); PROTEIN, URINE AUTO NEGATIVE (NEGATIVE); RBC, URINE AUTO 4 /HPF (0-3); SPECIFIC GRAVITY URINE AUTO 1.012 (1.002-1.035); SQUAMOUS EPITHELIAL CELL UR AU 0 /HPF (0-6); UROBILINOGEN, URINE AUTO 0.2 mg/dL (0.0-2.0); WBC, URINE AUTO 1 /HPF (0-3)
[2018-09-09 17:09] LABS: BASO % 0.7 % (0.0-1.0); EOS # 0.1 10^3/uL (0.0-0.50); EOS % 1.5 % (0.0-3.0); HEMATOCRIT 37.9 % (36.0-47.0); HEMOGLOBIN 12.7 g/dl (12.0-15.5); LYMPH # 1.7 10^3/uL (1.5-4.5); LYMPH % 30.9 % (24.0-44.0); MEAN CORPUSCULAR HEMOGLOBIN 27.2 pg (27.0-33.0); MEAN CORPUSCULAR HGB CONC 33.5 g/dl (32.0-36.5); MEAN CORPUSCULAR VOLUME 81.2 fl (80.0-96.0); MONO # 0.6 10^3/uL (0.0-0.8); MONO % 10.5 % (0.0-5.0); NEUTROPHILS % 55.8 % (36.0-66.0); PLATELET COUNT, AUTOMATED 204 10^3/uL (150-450); RED BLOOD COUNT 4.67 10^6/uL (4.00-5.40); WHITE BLOOD COUNT 5.3 10^3/uL (4.0-10.0)
[2018-09-09 17:34] LABS: ALT/SGPT 20 U/L (12-78); BILIRUBIN,TOTAL 0.3 MG/DL (0.2-1.0); BLOOD UREA NITROGEN 26 MG/DL (7-18); CALCIUM LEVEL 12.3 MG/DL (8.8-10.2); CARBON DIOXIDE LEVEL 28 MEQ/L (21-32); CHLORIDE LEVEL 103 MEQ/L (98-107); CREATININE FOR GFR 0.79 MG/DL (0.55-1.30); GLOMERULAR FILTRATION RATE > 60.0 (>45); GLUCOSE, FASTING 102 MG/DL (70-100); POTASSIUM SERUM 4.6 MEQ/L (3.5-5.1); SODIUM LEVEL 139 MEQ/L (136-145); TOTAL PROTEIN 7.5 GM/DL (6.4-8.2)
[2018-09-09 17:40] VITALS: BP 129/81
[2018-09-09 17:40] LABS: INR 0.95; PARTIAL THROMBOPLASTIN TIME 26.4 SECONDS (25.4-37.6); PROTHROMBIN TIME 12.8 SECONDS (12.1-14.4)
[2018-09-09 17:42] LABS: PTH INTACT 216.8 PG/ML (18.5-88.0)
== END 2018-09-09 17:40 | disposition home or self-care (01) ==
LOC: M INFU 16:04
PROVIDERS: ATTEND Family Medicine
DX: M85.80 Other specified disorders of bone density and structure, unspecified site (principal); E21.3 Hyperparathyroidism, unspecified; Z88.8 Allergy status to other drugs, medicaments and biological substances
CPT/HCPCS: 36415; 80053; 81001; 83970; 85025; 85610; 85730; 87086; 96365; J3489

== ENCOUNTER → 2018-09-09 | Outpatient (CLI) | payer OTHER ==
--- NOTE | 2018-09-09 18:51 | REP ---
Clinical: Preoperative assessment for nephrolithiasis . Comparison: 05/28/2016 . Technique: PA and lateral. Findings: The cardiac silhouette is normal. Current examination demonstrates increased opacity in the right perihilar region which represents a change from prior examination and underlying adenopathy cannot be excluded. The lung de la rosa are clear and without acute consolidation, effusion, or pneumothorax. The skeletal structures are intact and normal. Impression: 1. Right hilar adenopathy cannot be excluded. Consider contrast enhanced chest CT for further investigation. 2. No further acute pulmonary parenchymal or pleural process. Electronically Signed by Liban Bower MD 09/09/2018 06:43 P
== END ==
LOC: M RAD 16:13
PROVIDERS: ATTEND Urology
DX: Z01.818 Encounter for other preprocedural examination (principal); N20.0 Calculus of kidney

== ENCOUNTER 2018-09-13 06:05 | Day surgery (SDC) | payer OTHER ==
[~2018-09-13] VITALS: Ht 177.8 cm; Wt 92.1 kg
[~2018-09-13 06:05] MED LIST changes: +LIDOCAINE 1% MDV 20ML VIAL SQ PRN
[2018-09-13] MEDS ORDERED: CONRAY-60 60% 50ML VIAL (Q9961) As Ordered ONE (06:47)
[2018-09-13] MEDS ORDERED: LR 1,000 ML IV ONE (07:00)
[2018-09-13] MEDS ORDERED: fentaNYL 100 MCG/2 ML INJECTION (J3010) As Ordered ONE ×2 (07:17→08:46)
[2018-09-13] MEDS ORDERED: LIDOCAINE 2% INJ 100 MG/5 ML SDV (FOR ANES.) As Ordered ONE (07:17)
[2018-09-13] MEDS ORDERED: PROPOFOL 200 MG/20 ML VIAL As Ordered ONE (07:17)
[2018-09-13] MEDS ORDERED: MIDAZOLAM INJ 2 MG/2 ML VIAL (J2250) As Ordered ONE (07:18)
[2018-09-13] MEDS ORDERED: ePHEDrine SULFATE 25 MG/5 ML(5MG/ML) SYRINGE As Ordered ONE (07:40)
[2018-09-13] MEDS ORDERED: PHENYLephrine HCL 500 MCG/5 ML (100MCG/ML) SYRINGE (J2370) As Ordered ONE ×2 (07:40→08:19)
[2018-09-13] MEDS ORDERED: dexameTHASONE 4 MG/ML 1ML VIAL (J1100) As Ordered ONE (07:42)
[2018-09-13] MEDS ORDERED: ONDANSETRON 4MG/2ML VIAL (J2405) As Ordered ONE ×2 (08:32→09:03)
[2018-09-13] MEDS ORDERED: KETOROLAC 60 MG/2 ML VIAL (J1885) As Ordered ONE (09:08)
[2018-09-13] MEDS ORDERED: PERCOCET 5MG/325MG TAB PO PRN ×2 (09:30→09:45)
[2018-09-13] MEDS ORDERED: oxyBUTYnin 5 MG TAB PO PRN (09:30)
[2018-09-13] MEDS ORDERED: HYDROMORPHONE HCL 0.5 MG/ 0.5 ML SYRINGE (J1170 PER 1) IV PRN (09:45)
[2018-09-13] MEDS ORDERED: LR 1,000 ML IV SCH (09:45)
[2018-09-13] MEDS ORDERED: ONDANSETRON 4MG/2ML VIAL (J2405) IV PRN (09:45)
[2018-09-13] MEDS ORDERED: fentaNYL 100 MCG/2 ML INJECTION (J3010) IV PRN (09:45)
[2018-09-13 10:06] VITALS: BP 131/71
--- NOTE | 2018-09-13 10:21 | REP ---
C-ARM VIEWS AND RETROGRADE PYELOGRAM: Four C-arm views are performed. A wire is passed into the right ureter in the upper pelvicaliceal system and a small amount of contrast partially opacifies a dilated right pelvicaliceal system. There is placement of a right ureteral catheter with the proximal end coiled in the right renal pelvis and the distal end coiled in the region of the urinary bladder. The same procedure is performed on the left, with placement of a left ureteral stent, proximal end coiled in the left renal pelvis and the distal end coiled in the region of the urinary bladder. 45 seconds fluoroscopy time utilized. Electronically Signed by Sonny Abreu MD 09/13/2018 11:44 A
--- NOTE | 2018-09-13 19:00 | RO ---
DATE OF PROCEDURE: 09/13/2018 PREPROCEDURE DIAGNOSIS: Bilateral ureteral stones. POSTPROCEDURE DIAGNOSIS: Bilateral ureteral stones, bilateral ureteral strictures. PROCEDURE: Cystoscopy, bilateral ureteroscopy with ureteral dilatation, bilateral retrograde pyelogram with intraoperative interpretation of images, bilateral ureteral stent placement. SURGEON: Ed Crum MD FAMILY LAW MEDIATOR: None. ANESTHESIA: General. OPERATIVE INDICATIONS: This is a 62-year-old female who was found to have bilateral obstructive ureteral stones on recent CT scan. She was brought to the operating room today for treatment of her stones. DESCRIPTION OF PROCEDURE: The patient was brought to the operating room where general anesthesia was induced. Prophylactic antibiotics were infused. She was then placed in the dorsal lithotomy position and prepped and draped in the usual sterile fashion. A rigid cystoscope was inserted into the urethral meatus and advanced to the bladder. Once inside the bladder the guidewire was advanced up the right collecting system. I went up the right collecting system with a short semi-rigid ureteroscope and of note no stones were seen in the distal ureter. In about 3-4 cm proximal to the ureteral orifice there was a moderately narrow stricture. I was able to passively dilate the stricture with the scope and go further up. No stones were then seen in the midureter. I then removed the short semi-rigid ureteroscope and inserted a ureteral access sheath. I did have a little bit of difficulty advancing this up. I then went back with the flexible ureteroscope. I examined the entire length of the ureter and no stones were seen. I also examined the kidney and no stones were seen. A retrograde pyelogram was performed and it was notable for mild right hydronephrosis and no extravasation. I then withdrew the ureteroscope as well as the access sheath and utilized the wire to advanced a 6-Romanian x 22x 32 cm JJ ureteral stent up into the right collecting system. The wire was then removed and there were adequate curls of the stent in the right renal pelvis and in the bladder. I then advanced the wire up the left collecting system. I tried to advance a ureteral access sheath up the left collecting system but it would not go up the distal ureter. I then withdrew the access sheath and utilized blue Cook fascial dilators to dry to dilate the area of stricture and I could not dilate the stricture. I therefore utilized a balloon dilator and dilated the ureteral stricture for approximately 8 cm in length. The balloon dilator was then removed and then a ureteral access sheath was advanced up and still it would not go past the stricture. I inserted the flexible ureteroscope and was finally able to get the ureteroscope past the area of the stricture and examined the more proximal ureter. No stones were seen in the mid to proximal ureter. The left kidney was examined as well and it was notable for moderate left hydronephrosis with no extravasation. I then withdrew the ureteroscope along with the access sheath and the remainder of the mid to distal ureter was examined thoroughly and no stones were seen in there as well indicating that all of her stones had passed. I then utilized the wire to advance the 6-Romanian x 22-32 cm JJ ureteral stent up the left collecting system. The wire was then removed and there were adequate curls of the stent in the left renal pelvis and the bladder. The bladder was then emptied of all fluids and this marked the conclusion of the procedure. The patient was then taken out of dorsal lithotomy position and awakened from anesthesia and transported to the recovery room in stable condition. ESTIMATED BLOOD LOSS: 5 mL. COMPLICATIONS: None. SPECIMENS: None. PLAN: The patient will followup in the clinic in a few weeks for stent removal. SHELLEY
== END 2018-09-13 10:40 | disposition home or self-care (01) ==
LOC: M SDC 06:05
PROVIDERS: ATTEND Urology
DX: N20.0 Calculus of kidney (principal); N20.1 Calculus of ureter; I10 Essential (primary) hypertension; E11.9 Type 2 diabetes mellitus without complications; E78.5 Hyperlipidemia, unspecified; E55.9 Vitamin D deficiency, unspecified; K21.9 Gastro-esophageal reflux disease without esophagitis; Z79.84 Long term (current) use of oral hypoglycemic drugs; Z79.82 Long term (current) use of aspirin; Z87.891 Personal history of nicotine dependence; Z88.8 Allergy status to other drugs, medicaments and biological substances; E03.9 Hypothyroidism, unspecified; Z79.899 Other long term (current) drug therapy
CPT/HCPCS: 52332; 52341; 74420; C1769; C1894; C2617; J0690; J1100; J1885; J2250; J2370; J2405; J3010; Q9961

== ENCOUNTER → 2018-09-26 | Outpatient (CLI) | payer OTHER ==
[~2018-09-26] MED LIST changes: +ISOVUE-370 76% 100ML VIAL (Q9967) As Ordered ONE; -LIDOCAINE 1% MDV 20ML VIAL SQ PRN
--- NOTE | 2018-09-27 09:30 | REP ---
Clinical: Abnormal chest x-ray. Technique: Axial contrast enhanced images from the thoracic inlet to the upper abdomen with coronal and sagittal re-formations using 100 ml Isovue 370 intravenous contrast material. Comparison: 07/27/2010. Findings: Bilateral lung de la rosa demonstrate mild emphysematous changes. There are few right upper lobe bullae with surrounding interstitial scarring. Adjacent to the area of scarring is a 14 mm noncalcified nodule along the anterior right upper lobe (image 38) which it is a relatively new finding as compared to 2010 and warrants further investigation. No further consolidation, significant nodule or mass lesion appreciated. No pleural effusion. No pneumothorax. Tracheobronchial tree is patent. No significant adenopathy is appreciated. Moderate prominence to the bilateral main pulmonary arteries (left greater than right) likely responsible for the suspected hilar adenopathy by x-ray. Atherosclerotic changes to the thoracic aorta and coronary arteries noted without aortic aneurysm, dissection, cardiomegaly or pericardial effusion. Musculoskeletal structures demonstrate subtle areas of irregular lucency in multiple thoracic vertebral bodies concerning for the possibility of underlying neoplasm and metastatic disease. Limited evaluation of the upper abdomen demonstrates suspicious soft tissue in the gastrohepatic ligament (image 97) and evidence for bilateral hydronephrosis. Impression: 1. 14 mm noncalcified nodule in the right upper lobe requires further investigation including tissue sampling and/or PET-CT as well as the possibility of short-term follow-up chest CT. 2. Very subtle areas of lucency within multiple thoracic vertebral bodies which may be of no clinical significance however underlying metabolic disease and/or metastasis cannot definitively be excluded and warrants investigation. Electronically Signed by Liban Bower MD 09/27/2018 09:22 A
== END ==
LOC: M RAD 16:10
PROVIDERS: ATTEND Family Medicine
DX: R91.8 Other nonspecific abnormal finding of lung field (principal)
CPT/HCPCS: 71260; Q9967

== ENCOUNTER → 2018-10-22 | Outpatient (CLI) | payer OTHER ==
[~2018-10-22] MED LIST changes: -ISOVUE-370 76% 100ML VIAL (Q9967) As Ordered ONE
--- NOTE | 2018-10-23 13:56 | REP ---
PET/CT: History: Solitary pulmonary nodule. Comparisons: Comparison CT study of the chest is from September 26, 2018. TECHNIQUE: 63 minutes following the intravenous injection of a 8.0 mCi dose of F-18 FDG, three-dimensional PET scintigraphy is acquired from the skull base to the proximal thighs. Triplanar noncontrast CT scanning is acquired through the same anatomic range for attenuation correction, and image registration with scan parameters optimized to minimize radiation exposure to the patient. PET scintigraphy and CT datasets were fused and displayed on a workstation with multiplanar and projection display capability. PET/CT Findings: The recently noted right upper lobe spiculated pulmonary nodule shows visible FDG accumulation. This is not in the hypermetabolic range however with maximum standard uptake value of 2.14. It must be kept in mind that this has suspicious morphology and is relatively small. Malignancy must still be suspected. There is no other abnormal hypermetabolic uptake within the chest. No abnormal skeletal hypermetabolic uptake is seen. No abnormal uptake is seen in the head and neck soft tissues. In the abdomen and pelvis, normal hepatic, splenic, genitourinary and gastrointestinal FDG distribution is seen. No abnormal abdominal or pelvic uptake. Impression: There is discernible uptake in the right upper lobe nodule although it is not frankly in the hypermetabolic range. It has suspicious morphology. Malignancy must still be suspected. No other abnormal hypermetabolic uptake is seen. Electronically Signed by Lang López MD 10/23/2018 05:05 P
== END ==
LOC: M PLARAD 13:31
PROVIDERS: ATTEND Nurse Practitioner Family
DX: R91.1 Solitary pulmonary nodule (principal)
CPT/HCPCS: 78815; A9552

== ENCOUNTER → 2018-11-12 | Outpatient (CLI) | payer OTHER ==
--- NOTE | 2018-11-12 17:38 | REP ---
Clinical: Follow up pulmonary mass. Technique: Axial noncontrast images from the thoracic inlet to the upper abdomen with coronal and sagittal re-formations. Comparison: 09/26/2018. Findings: 14 mm soft tissue lesion with spiculated margins in the anterior right upper lobe with adjacent irregular cysts and scarring (images 25-37) remains essentially unchanged. Remainder of lung de la rosa are well-aerated and clear. No further consolidation, nodule or mass lesion. No pleural effusion. No pneumothorax. Tracheobronchial tree is patent. Mediastinal and hilar adenopathy cannot be excluded and evaluation is limited due to the lack of intravenous contrast enhancement. Atherosclerotic changes to the thoracic aorta and coronary arteries are again noted without aortic aneurysm or cardiomegaly. No pericardial effusion. Musculoskeletal structures are intact. Limited upper abdomen demonstrates stable appearance the bilateral adrenal glands along with suspected bilateral hydronephrosis and/or peripelvic cysts (left greater than right). Impression: 1. Stable 14 mm mass in the right upper lobe with adjacent irregular scarring and cystic changes. No further acute pleuroparenchymal process appreciated. 2. Incomplete evaluation for mediastinal or hilar adenopathy. 3. Limited upper abdomen suggesting hydronephrosis and/or peripelvic cysts. Electronically Signed by Liban Bower MD 11/12/2018 05:29 P
== END ==
LOC: M RAD 16:45
PROVIDERS: ATTEND Internal Medicine Pulmonary Disease
DX: R91.8 Other nonspecific abnormal finding of lung field (principal); I70.0 Atherosclerosis of aorta; I25.10 Atherosclerotic heart disease of native coronary artery without angina pectoris

== ENCOUNTER → 2018-11-18 | Outpatient (CLI) | payer MEDICARE, OTHER ==
[~2018-11-18] MED LIST changes: -/PANT40TA OR; -ASCO25TA PO; -ASPI1TAB PO; +ASPI81TA26 PO; +HYDR-3715 PO; -NORCOTAB PO; +PROT1TAB2 OR; +VITA1TAB23 PO
[2018-11-18 20:40] LABS: BASO % 0.8 % (0.0-1.0); EOS # 0.1 10^3/uL (0.0-0.50); EOS % 1.7 % (0.0-3.0); HEMATOCRIT 31.3 % (36.0-47.0); HEMOGLOBIN 10.3 g/dl (12.0-15.5); LYMPH # 1.2 10^3/uL (1.5-4.5); LYMPH % 22.6 % (24.0-44.0); MEAN CORPUSCULAR HEMOGLOBIN 26.2 pg (27.0-33.0); MEAN CORPUSCULAR HGB CONC 32.9 g/dl (32.0-36.5); MEAN CORPUSCULAR VOLUME 79.6 fl (80.0-96.0); MONO # 0.5 10^3/uL (0.0-0.8); MONO % 8.9 % (0.0-5.0); NEUTROPHILS # 3.4 10^3/uL (1.8-7.7); NEUTROPHILS % 65.6 % (36.0-66.0); PLATELET COUNT, AUTOMATED 296 10^3/uL (150-450); RED BLOOD COUNT 3.93 10^6/uL (4.00-5.40); WHITE BLOOD COUNT 5.2 10^3/uL (4.0-10.0)
[2018-11-18 20:43] LABS: HEMATOCRIT 31.3 % (36.0-47.0)
[2018-11-18 20:49] LABS: INR 0.96; PROTHROMBIN TIME 12.9 SECONDS (12.1-14.4)
[2018-11-18 20:50] LABS: ALBUMIN 3.7 GM/DL (3.2-5.2); ALT/SGPT 20 U/L (12-78); BILIRUBIN,TOTAL 0.3 MG/DL (0.2-1.0); BLOOD UREA NITROGEN 26 MG/DL (7-18); CALCIUM LEVEL 9.7 MG/DL (8.8-10.2); CARBON DIOXIDE LEVEL 30 MEQ/L (21-32); CHLORIDE LEVEL 102 MEQ/L (98-107); CREATININE FOR GFR 1.05 MG/DL (0.55-1.30); FREE T4 1.44 NG/DL (0.76-1.46); GLOMERULAR FILTRATION RATE > 60.0 (>45); GLUCOSE, FASTING 177 MG/DL (70-100); MAGNESIUM LEVEL 1.5 MG/DL (1.8-2.4); PARTIAL THROMBOPLASTIN TIME 26.7 SECONDS (25.4-37.6); POTASSIUM SERUM 4.2 MEQ/L (3.5-5.1); SODIUM LEVEL 138 MEQ/L (136-145); TOTAL PROTEIN 7.6 GM/DL (6.4-8.2)
[2018-11-18 21:02] LABS: HEMOGLOBIN A1c 6.8 %
[2018-11-19 14:03] LABS: VITAMIN B12 LEVEL 903 PG/ML (247-911)
== END ==
LOC: M WUC 17:41
PROVIDERS: ATTEND Family Medicine
DX: E53.8 Deficiency of other specified B group vitamins (principal); E21.3 Hyperparathyroidism, unspecified; E78.2 Mixed hyperlipidemia; E11.9 Type 2 diabetes mellitus without complications; R91.1 Solitary pulmonary nodule

== ENCOUNTER → 2018-11-18 | Outpatient (CLI) | payer OTHER ==
[2018-11-18 20:38] LABS: BLOOD UREA NITROGEN 27 MG/DL (7-18); CALCIUM LEVEL 9.6 MG/DL (8.8-10.2); CARBON DIOXIDE LEVEL 29 MEQ/L (21-32); CHLORIDE LEVEL 102 MEQ/L (98-107); CREATININE FOR GFR 1.06 MG/DL (0.55-1.30); GLOMERULAR FILTRATION RATE > 60.0 (>45); GLUCOSE, FASTING 175 MG/DL (70-100); POTASSIUM SERUM 4.4 MEQ/L (3.5-5.1); SODIUM LEVEL 140 MEQ/L (136-145)
[2018-11-18 20:39] LABS: BASO # 0.1 10^3/uL (0.0-0.2); BASO % 0.9 % (0.0-1.0); EOS # 0.1 10^3/uL (0.0-0.50); EOS % 1.9 % (0.0-3.0); HEMATOCRIT 31.6 % (36.0-47.0); HEMOGLOBIN 10.4 g/dl (12.0-15.5); LYMPH # 1.1 10^3/uL (1.5-4.5); LYMPH % 21.2 % (24.0-44.0); MEAN CORPUSCULAR HEMOGLOBIN 26.2 pg (27.0-33.0); MEAN CORPUSCULAR HGB CONC 32.9 g/dl (32.0-36.5); MEAN CORPUSCULAR VOLUME 79.6 fl (80.0-96.0); MONO # 0.5 10^3/uL (0.0-0.8); MONO % 9.1 % (0.0-5.0); NEUTROPHILS # 3.6 10^3/uL (1.8-7.7); NEUTROPHILS % 66.7 % (36.0-66.0); PLATELET COUNT, AUTOMATED 293 10^3/uL (150-450); RED BLOOD COUNT 3.97 10^6/uL (4.00-5.40); WHITE BLOOD COUNT 5.4 10^3/uL (4.0-10.0)
[2018-11-18 20:50] LABS: INR 0.97; PARTIAL THROMBOPLASTIN TIME 27.2 SECONDS (25.4-37.6)
== END ==
LOC: M WUC 17:45
PROVIDERS: ATTEND Internal Medicine Pulmonary Disease
DX: R91.8 Other nonspecific abnormal finding of lung field (principal)

== ENCOUNTER 2018-11-19 08:34 | Day surgery (SDC) | payer MEDICARE, OTHER ==
[~2018-11-19] VITALS: Ht 175.3 cm; Wt 89.8 kg
[~2018-11-19 08:34] MED LIST changes: -CINA30TA PO; +CINA30TA4 PO; +LR 1,000 ML IV ONE
[2018-11-19] MEDS ORDERED: MIDAZOLAM INJ 2 MG/2 ML VIAL (J2250) As Ordered ONE (09:43)
[2018-11-19] MEDS ORDERED: fentaNYL 100 MCG/2 ML INJECTION (J3010) As Ordered ONE (09:44)
[2018-11-19] MEDS ORDERED: PROPOFOL 200 MG/20 ML VIAL As Ordered ONE (09:45)
[2018-11-19] MEDS ORDERED: LIDOCAINE 2% INJ 100 MG/5 ML SDV (FOR ANES.) As Ordered ONE (09:46)
[2018-11-19] MEDS ORDERED: ROCURONIUM BROMIDE 50 MG/5 ML VIAL As Ordered ONE (09:46)
[2018-11-19] MEDS ORDERED: ONDANSETRON 4MG/2ML VIAL (J2405) As Ordered ONE (09:46)
[2018-11-19] MEDS ORDERED: dexameTHASONE 4 MG/ML 1ML VIAL (J1100) As Ordered ONE (09:46)
[2018-11-19] MEDS ORDERED: CETACAINE SPRAY 5GM As Ordered ONE (10:53)
[2018-11-19] MEDS ORDERED: THROMBIN SOLN 5,000 UNITS VIAL As Ordered ONE (10:53)
[2018-11-19] MEDS ORDERED: LIDOCAINE 1% SDV INJ 30 ML VIAL As Ordered ONE (10:53)
[2018-11-19] MEDS ORDERED: LIDOCAINE VISCOUS 2% SOLN 15ML UDC As Ordered ONE (10:53)
[2018-11-19] MEDS ORDERED: SUGAMMADEX SODIUM 500 MG/5 ML VIAL (BRIDION) As Ordered ONE (11:39)
[2018-11-19 13:40] VITALS: BP 115/70
[2018-11-19 14:09] LABS: SOURCE RIGHT UPPER LOBE
[2018-11-19 14:10] LABS: APPEARANCE HAZY (CLEAR); COLOR PINK (COLORLESS)
--- NOTE | 2018-11-19 14:50 | ROOR ---
Patient Name: Zeyad Michel Procedure Date: 11/19/2018 10:19 AM Date of : 1955 Admit Type: Outpatient Age: 62 Note Status: Finalized Attending MD: Ifeoma Quezada MD Procedure: Bronchoscopy Indications: Right upper lobe nodule Providers: Ifeoma Quezada MD (Doctor) Referring MD: 1. No Referring Physician 1. No Referring Physician, Admin. (Referring MD) Requesting Physician: Medicines: General Anesthesia, Cetacaine topical Complications: No immediate complications. Estimated blood loss: Minimal Procedure: Pre-Anesthesia Assessment: - Prior to the procedure, a History and Physical was performed, and patient medications and allergies were reviewed. The patient's tolerance of previous anesthesia was also reviewed. The risks and benefits of the procedure and the sedation options and risks were discussed with the patient. All questions were answered, and informed consent was obtained. Prior Anticoagulants: The patient has taken aspirin, last dose was day of procedure. ASA Grade Assessment: III - A patient with severe systemic disease. After reviewing the risks and benefits, the patient was deemed in satisfactory condition to undergo the procedure. The Bronchoscope was introduced through the mouth, via the endotracheal tube (the patient was intubated for the procedure) and advanced to the tracheobronchial tree of both lungs. The procedure was accomplished without difficulty. The patient tolerated the procedure well. Findings: The endotracheal tube is in good position. The visualized portion of the trachea is of normal caliber. The walter is sharp. The tracheobronchial tree was examined to at least the first subsegmental level. Bronchial mucosa and anatomy are normal; there were some areas of webbing and mild pitting, there are no endobronchial lesions, and no secretions. Electromagnetic navigation bronchoscopy utilizing the QoL Meds system with iLogic upgrade was performed. The CT scan was used for planning purposes. A virtual bronchoscopic image was generated using the planning software and the walter, left main bronchus walter, left lower lobe basilar segment, right upper lobe, right middle lobe and right lower lobe basilar segment registration points were marked on the virtual image. The target in the anterior segment of the right upper lobe was marked. A nodule 1.4 cm in size was found and a pathway was created. After a complete airway exam, the locatable guide/extended working channel was inserted and an automatic registration was performed by advancing the scope through the walter, left main bronchus walter, left lower lobe basilar segment, right upper lobe, right middle lobe and right lower lobe basilar segment. The navigation phase was then begun to locate the target lesion(s). Positioning off-center (in relation to the lesion) was confirmed using the Olympus radial probe US catheter. The locatable guide was removed from the extended working channel. Transbronchial needle aspirations of a nodule were performed in the anterior segment of the right upper lobe using a Oliveira 21 gauge needle and also a GenCut needle and sent for routine cytology. The procedure was guided by fluoroscopy. Transbronchial needle aspiration technique was selected because the sampling site was not visible endoscopically. Transbronchial biopsies of a nodule were performed in the anterior segment of the right upper lobe using forceps and sent for routine cytology. The procedure was guided by fluoroscopy. Transbronchial biopsy technique was selected because the sampling site was not visible endoscopically. Bronchoalveolar lavage was performed in the RUL anterior segment (B3) of the lung and sent for cell count, bacterial culture, and fungal & AFB analysis and cytology. The return was blood-tinged. Mucous plugs were present in the return fluid. Impression: - Right upper lobe nodule - The airway examination was normal. - Electromagnetic navigation bronchoscopy was performed. - A transbronchial needle aspiration was performed. - Transbronchial lung biopsies were performed. - Bronchoalveolar lavage was performed. Recommendation: - Await test results. Attending Participation: I personally performed the entire procedure. Ifeoma Quezada MD 11/19/2018 2:50:17 PM Number of Addenda: 0 Note Initiated On: 11/19/2018 10:19 AM
--- NOTE | 2018-11-19 15:01 | REP ---
PORTABLE CHEST X-RAY: Single view. HISTORY: Status post bronchoscopy. COMPARISON STUDY: September 09, 2018. FINDINGS: There is a linear opacity just below the minor fissure on the right consistent with discoid atelectasis. There is no evidence of pneumothorax or hydrothorax. Mediastinum is not widened. Heart size is normal. There are surgical clips in the soft tissues of the neck. IMPRESSION: Linear opacity below the minor fissure on the right consistent with discoid atelectasis. Otherwise no acute disease. Electronically Signed by Lang López MD 11/19/2018 03:11 P
[2018-11-19 15:52] LABS: MONOCYTES/MACROPHAGES, BAL 54 %
== END 2018-11-19 13:45 | disposition home or self-care (01) ==
LOC: M SDC 08:34
PROVIDERS: ATTEND Internal Medicine Pulmonary Disease
DX: C34.11 Malignant neoplasm of upper lobe, right bronchus or lung (principal); I10 Essential (primary) hypertension; E11.9 Type 2 diabetes mellitus without complications; E78.5 Hyperlipidemia, unspecified; E03.9 Hypothyroidism, unspecified; K21.9 Gastro-esophageal reflux disease without esophagitis; E55.9 Vitamin D deficiency, unspecified; E21.1 Secondary hyperparathyroidism, not elsewhere classified; Z79.899 Other long term (current) drug therapy; Z79.82 Long term (current) use of aspirin; F17.210 Nicotine dependence, cigarettes, uncomplicated; Z79.84 Long term (current) use of oral hypoglycemic drugs; Z92.3 Personal history of irradiation; M81.0 Age-related osteoporosis without current pathological fracture; D64.9 Anemia, unspecified; Z88.8 Allergy status to other drugs, medicaments and biological substances; Z85.41 Personal history of malignant neoplasm of cervix uteri
CPT/HCPCS: 31624; 31627; 31628; 31629; 71045; 76000; 87070; 87102; 87116; 87205; 87206; 88108; 88173; 88305; 88313; 88342; 89051; J1100; J2250; J2405; J3010

== ENCOUNTER → 2018-12-25 | Outpatient (CLI) | payer MEDICARE, OTHER ==
[~2018-12-25] MED LIST changes: -LR 1,000 ML IV ONE
[2018-12-25 13:07] LABS: HEMATOCRIT 33.9 % (36.0-47.0); HEMOGLOBIN 11.1 g/dl (12.0-15.5); MEAN CORPUSCULAR HEMOGLOBIN 25.8 pg (27.0-33.0); MEAN CORPUSCULAR HGB CONC 32.7 g/dl (32.0-36.5); MEAN CORPUSCULAR VOLUME 78.8 fl (80.0-96.0); PLATELET COUNT, AUTOMATED 228 10^3/uL (150-450); WHITE BLOOD COUNT 5.1 10^3/uL (4.0-10.0)
[2018-12-25 13:21] LABS: INR 0.95; PARTIAL THROMBOPLASTIN TIME 25.8 SECONDS (25.4-37.6); PROTHROMBIN TIME 12.8 SECONDS (12.1-14.4)
[2018-12-25 13:34] LABS: CREATININE FOR GFR 1.59 MG/DL (0.55-1.30); POTASSIUM SERUM 4.6 MEQ/L (3.5-5.1)
[2018-12-25 13:37] LABS: ABG BASE EXCESS -2.1 (-2.0-2.0); ABG HCO3 22.6 MEQ/L (22.0-26.0); ABG O2 SATURATION 96.8 % (95.0-99.0); ABG PARTIAL PRESSURE CO2 38.3 mmHg (35.0-45.0); ABG PARTIAL PRESSURE O2 97.6 mmHg (75.0-100.0); ABG STANDARD HCO3 22.7 MEQ/L (22.0-26.0); ABG TOTAL CO2 23.7 MEQ/L (23.0-31.0); ABG pH (ARTERIAL) 7.388 UNITS (7.350-7.450)
[2018-12-25 13:58] LABS: APPEARANCE, URINE CLEAR (CLEAR); BACTERIA, URINE AUTO NEGATIVE (NEGATIVE); BILIRUBIN, URINE AUTO NEGATIVE (NEGATIVE); BLOOD, URINE BLOOD NEGATIVE (NEGATIVE); COLOR, URINE YELLOW (YELLOW); GLUCOSE, URINE (UA) AUTO NEGATIVE (NEGATIVE); KETONE, URINE AUTO NEGATIVE (NEGATIVE); LEUKOCYTE ESTERASE, URINE AUTO 1+ (NEGATIVE); NITRITE, URINE AUTO NEGATIVE (NEGATIVE); PROTEIN, URINE AUTO NEGATIVE (NEGATIVE); RBC, URINE AUTO 3 /HPF (0-3); SPECIFIC GRAVITY URINE AUTO 1.012 (1.002-1.035); SQUAMOUS EPITHELIAL CELL UR AU 0 /HPF (0-6); UROBILINOGEN, URINE AUTO 0.2 mg/dL (0.0-2.0); WBC, URINE AUTO 13 /HPF (0-3)
--- NOTE | 2018-12-25 15:14 | REP ---
REASON: History of lung mass. COMPARISON: A portable of 11/19/2018 the latest prior with other older priors also reviewed. There is an abnormal patchy right upper lobe opacity. It has developed since the prior exams. There are no other significant changes. The heart is not enlarged and the pleural angles are sharp. IMPRESSION: Right upper lobe opacity of uncertain etiology. Patient did have chest CT of 11/12/2018 which showed a 1.4 cm sized right upper lobe mass adjacent to parenchymal scarring. Whether or not the finding of today represents that mass cannot be stated with certainty. Consider followup chest CT if clinically relevant. Electronically Signed by Yariel Pulido DO 12/25/2018 03:27 P
--- NOTE | 2018-12-26 00:47 | ECGEPIP ---
Stationary ECG Study [facility] Test Date: 2018-12-25 Pat Name: RAMONE HERNANDEZ Department: Room: - Gender: F [employer]: : 1955 Requested By: Lorenzo Zheng Order Number: [id number] Reading MD: Jr Burnham Measurements Intervals [place] Rate: 60 P: 53 CO: 156 QRS: 5 QRSD: 89 T: 53 QT: 398 QTc: 400 Interpretive Statements SINUS RHYTHM NONSPECIFIC T-WAVE ABNORMALITY LOW-VOLTAGE QRS COMPLEXES NOTED IN THE LIMB LEADS COMPARED TO THE LAST 3 TRACINGS, NO SIGNIFICANT CHANGES Electronically Signed On 12-26-2018 0:47:01 EDT by Jr Burnham
== END ==
LOC: M ADMPAT 12:33
PROVIDERS: ATTEND Thoracic Surgery (Cardiothoracic Vascular Surgery)
DX: Z01.818 Encounter for other preprocedural examination (principal); R91.8 Other nonspecific abnormal finding of lung field; I10 Essential (primary) hypertension

== ENCOUNTER → 2018-12-26 | Outpatient (REF) | payer MEDICARE, OTHER ==
[~2018-12-26] MED LIST changes: +PERCOCET PO
[2018-12-26 13:32] LABS: ALBUMIN 4.2 GM/DL (3.2-5.2); ALT/SGPT 16 U/L (12-78); BILIRUBIN,TOTAL 0.3 MG/DL (0.2-1.0); BLOOD UREA NITROGEN 26 MG/DL (7-18); CALCIUM LEVEL 9.7 MG/DL (8.8-10.2); CARBON DIOXIDE LEVEL 28 MEQ/L (21-32); CHLORIDE LEVEL 105 MEQ/L (98-107); CREATININE FOR GFR 0.92 MG/DL (0.55-1.30); GLOMERULAR FILTRATION RATE > 60.0 (>45); GLUCOSE, FASTING 87 MG/DL (70-100); MAGNESIUM LEVEL 1.7 MG/DL (1.8-2.4); POTASSIUM SERUM 4.8 MEQ/L (3.5-5.1); PTH INTACT 234.9 PG/ML (18.5-88.0); SODIUM LEVEL 139 MEQ/L (136-145); TOTAL PROTEIN 7.9 GM/DL (6.4-8.2)
[2018-12-26 13:38] LABS: APPEARANCE, URINE CLEAR (CLEAR); BACTERIA, URINE AUTO NEGATIVE (NEGATIVE); BILIRUBIN, URINE AUTO NEGATIVE (NEGATIVE); BLOOD, URINE BLOOD NEGATIVE (NEGATIVE); COLOR, URINE STRAW (YELLOW); GLUCOSE, URINE (UA) AUTO NEGATIVE (NEGATIVE); KETONE, URINE AUTO NEGATIVE (NEGATIVE); LEUKOCYTE ESTERASE, URINE AUTO 2+ (NEGATIVE); MUCUS, URINE SMALL (NEGATIVE); NITRITE, URINE AUTO NEGATIVE (NEGATIVE); PROTEIN, URINE AUTO NEGATIVE (NEGATIVE); RBC, URINE AUTO 1 /HPF (0-3); SPECIFIC GRAVITY URINE AUTO 1.006 (1.002-1.035); SQUAMOUS EPITHELIAL CELL UR AU 1 /HPF (0-6); UROBILINOGEN, URINE AUTO 0.2 mg/dL (0.0-2.0); WBC, URINE AUTO 7 /HPF (0-3)
== END ==
LOC: M SFHCPLAZ 11:04
PROVIDERS: ATTEND Family Medicine
DX: I10 Essential (primary) hypertension (principal)

== ENCOUNTER → 2018-12-31 | Outpatient (CLI) | payer MEDICARE, OTHER ==
--- NOTE | 2019-01-09 14:23 | REP ---
RENAL AND BLADDER ULTRASOUND: Real-time sonographic evaluation of the kidneys and bladder are performed. Study is submitted to [facility] for interpretation 01/09/2019 for reasons unknown to me. Kidneys are normal in size and echotexture, right kidney measuring 12.2 x 7.0 x 6.0 cm and left kidney 12.9 x 7.3 x 7.8 cm. There is mild right hydronephrosis. There is moderate to severe left hydronephrosis. Resistive index right kidney 0.67 and left kidney 0.78 with duplex Doppler evaluation. No definite intrarenal calculus is seen. Urinary bladder is distended with no mass or calculus. There are bilateral ureteral jets in the urinary bladder with Doppler color evaluation. IMPRESSION: Mild right hydronephrosis. Moderate to severe left hydronephrosis. There are bilateral ureteral jets in the urinary bladder with Doppler color evaluation, with a ratio of 5:1 right to left. Electronically Signed by Sonny Abreu MD 01/10/2019 02:41 P
== END ==
LOC: M RAD 11:18
PROVIDERS: ATTEND Family Medicine
DX: N13.30 Unspecified hydronephrosis (principal)

== ENCOUNTER 2019-01-08 07:40 | Inpatient (IN) | payer MEDICARE, OTHER ==
[2018-12-25 13:29] VITALS: BP 170/86
[~2019-01-08] VITALS: Ht 170.2 cm; Wt 85.0 kg
[2019-01-08] VITALS (14 sets, daily range): BP systolic 90–157; BP diastolic 58–90
[~2019-01-08 07:40] MED LIST changes: -PERCOCET PO
[2019-01-08] MEDS ORDERED: MUPIROCIN 2% OINT 22 GM TUBE TOP ONE (08:00)
[2019-01-08] MEDS ORDERED: LR 1,000 ML IV SCH ×2 (08:00→15:15)
[2019-01-08] MEDS ORDERED: MIDAZOLAM INJ 2 MG/2 ML VIAL (J2250) As Ordered ONE ×2 (08:11→11:14)
[2019-01-08] MEDS ORDERED: fentaNYL 100 MCG/2 ML INJECTION (J3010) As Ordered ONE ×2 (08:11→13:28)
[2019-01-08] MEDS: fentaNYL 100 MCG/2 ML INJECTION (J3010) IV PRN ×2 (08:40→08:43)
[2019-01-08] MEDS: MIDAZOLAM INJ 2 MG/2 ML VIAL (J2250) IV PRN ×2 (08:40→08:42)
[2019-01-08] MEDS ORDERED: diphenhydrAMINE INJ 50MG/ML VIAL (J1200) IV PRN (09:15)
[2019-01-08] MEDS ORDERED: ONDANSETRON 4MG/2ML VIAL (J2405) IV PRN ×3 (09:15→15:15)
[2019-01-08] MEDS ORDERED: WALLBOXKEY XX PRN (09:15)
[2019-01-08] MEDS ORDERED: NALOXONE INJ 0.4 MG/1 ML VIAL (J2310) IV PRN (09:15)
[2019-01-08] MEDS ORDERED: METOCLOPRAMIDE INJ 10MG/2ML VIAL (J2765) IV PRN ×2 (09:15→15:15)
[2019-01-08] MEDS: FENTANYL/BUPIVACAINE/NACL BAG 250 ML EPIDURAL SCH (09:15)
[2019-01-08] MEDS ORDERED: EPIDURAL/PCA KEYS XX PRN (09:15)
[2019-01-08] MEDS ORDERED: BUPIVACAINE HCL 0.5% 10 ML VIAL As Ordered ONE (09:45)
[2019-01-08] MEDS ORDERED: CETACAINE SPRAY 5GM As Ordered ONE (09:45)
[2019-01-08] MEDS ORDERED: BUPIVACAINE LIPOSOME/PF 1.3% 20ML VIAL (13.3MG/ML)(EXPAREL)(C9290 PER1MG) As Ordered ONE ×2 (09:45→13:58)
[2019-01-08] MEDS ORDERED: BUPIVACAINE HCL 0.25% 30 ML VIAL As Ordered ONE (11:14)
[2019-01-08] MEDS ORDERED: ROCURONIUM BROMIDE 50 MG/5 ML VIAL As Ordered ONE (11:14)
[2019-01-08] MEDS ORDERED: PHENYLephrine HCL 500 MCG/5 ML (100MCG/ML) SYRINGE (J2370) As Ordered ONE (11:14)
[2019-01-08] MEDS ORDERED: fentaNYL 250 MCG/5 ML INJECTION (J3010) As Ordered ONE (11:14)
[2019-01-08] MEDS ORDERED: LIDOCAINE 2% INJ 100 MG/5 ML SDV (FOR ANES.) As Ordered ONE (11:14)
[2019-01-08] MEDS ORDERED: PROPOFOL 200 MG/20 ML VIAL As Ordered ONE (11:14)
[2019-01-08] MEDS ORDERED: METOCLOPRAMIDE INJ 10MG/2ML VIAL (J2765) As Ordered ONE (11:14)
[2019-01-08] MEDS ORDERED: ONDANSETRON 4MG/2ML VIAL (J2405) As Ordered ONE (11:14)
[2019-01-08] MEDS ORDERED: DESFLURANE 240 ML INHALANT As Ordered ONE ×2 (11:14→13:56)
[2019-01-08] MEDS ORDERED: ePHEDrine SULFATE 25 MG/5 ML(5MG/ML) SYRINGE As Ordered ONE (11:14)
[2019-01-08] MEDS ORDERED: dexameTHASONE 4 MG/ML 1ML VIAL (J1100) As Ordered ONE (11:14)
[2019-01-08] MEDS ORDERED: ETOMIDATE INJ 20MG/10ML VIAL As Ordered ONE (11:14)
[2019-01-08] MEDS ORDERED: ACETAMINOPHEN 1000MG 100ML IV BTL (OFIRMEV) (J0131 PER 10MG) As Ordered ONE (13:37)
[2019-01-08] MEDS ORDERED: SUGAMMADEX SODIUM 500 MG/5 ML VIAL (BRIDION) As Ordered ONE (13:37)
[2019-01-08] MEDS ORDERED: KCL 20MEQ IN D5/0.9%NACL 1000 ML As Ordered ONE (13:48)
[2019-01-08] MEDS ORDERED: GLUCAGON FOR INJ 1 MG VIAL (J1610) SC PRN (14:45)
[2019-01-08] MEDS ORDERED: BISACODYL 10 MG SUPP PR PRN (14:45)
[2019-01-08] MEDS ORDERED: ACETAMINOPHEN TAB 650MG DOSE (2X325MG) PO PRN (14:45)
[2019-01-08] MEDS ORDERED: LEVALBUTEROL 1.25 MG/0.5 ML CONCENTRATE NEB NEB PRN (14:45)
[2019-01-08] MEDS ORDERED: NORCO, ANEXSIA 5/325MG TABLET (HYDROcodone/ACETAMINOPHEN) PO PRN (14:45)
[2019-01-08] MEDS ORDERED: PERCOCET 5MG/325MG TAB PO PRN ×3 (14:45→15:15)
[2019-01-08] MEDS ORDERED: KCL 20MEQ IN D5/NS 1000ML 1,000 ML IV SCH (14:45)
[2019-01-08] MEDS ORDERED: DEXTROSE 50% 50 ML SYRINGE IV PRN (14:45)
[2019-01-08] MEDS ORDERED: GLUCOSE 4 GM CHEW TABLET PO PRN (14:45)
[2019-01-08 14:50] LABS: ABG BASE EXCESS -1.6 (-2.0-2.0); ABG HCO3 25.4 MEQ/L (22.0-26.0); ABG PARTIAL PRESSURE CO2 53.4 mmHg (35.0-45.0); ABG PARTIAL PRESSURE O2 77.1 mmHg (75.0-100.0); ABG SITE ART LINE; ABG STANDARD HCO3 23.1 MEQ/L (22.0-26.0); ABG pH (ARTERIAL) 7.295 UNITS (7.350-7.450); HEMOGLOBIN 10.3 g/dl (12.0-15.5); MEAN CORPUSCULAR HEMOGLOBIN 25.8 pg (27.0-33.0); MEAN CORPUSCULAR HGB CONC 33.2 g/dl (32.0-36.5); MEAN CORPUSCULAR VOLUME 77.5 fl (80.0-96.0); PLATELET COUNT, AUTOMATED 232 10^3/uL (150-450); WHITE BLOOD COUNT 12.3 10^3/uL (4.0-10.0)
[2019-01-08] MEDS ORDERED: KETOROLAC 30 MG/ML VIAL (J1885) IV SCH (15:00)
[2019-01-08] MEDS ORDERED: KETOROLAC 30 MG/ML VIAL (J1885) As Ordered ONE (15:08)
[2019-01-08] MEDS: KETOROLAC 30 MG/ML VIAL (J1885) IV SCH (15:12)
[2019-01-08] MEDS ORDERED: fentaNYL 100 MCG/2 ML INJECTION (J3010) IV PRN (15:15)
[2019-01-08 15:21] LABS: BLOOD UREA NITROGEN 20 MG/DL (7-18); CARBON DIOXIDE LEVEL 27 MEQ/L (21-32); CHLORIDE LEVEL 106 MEQ/L (98-107); CREATININE FOR GFR 0.93 MG/DL (0.55-1.30); GLOMERULAR FILTRATION RATE > 60.0 (>45); GLUCOSE, FASTING 214 MG/DL (70-100); POTASSIUM SERUM 4.3 MEQ/L (3.5-5.1); SODIUM LEVEL 139 MEQ/L (136-145)
--- NOTE | 2019-01-08 17:29 | REP ---
PORTABLE CHEST: AP portable view of the chest was performed. Two right chest tubes are noted in place. Mild air is seen in the soft tissues of the right chest wall. I do not see evidence of a pneumothorax. Metallic clips are seen in the superior mediastinum. There appear to be linear atelectatic change in both lungs. Heart and mediastinum are otherwise grossly unchanged. Electronically Signed by Sonny Abreu MD 01/09/2019 12:38 P
[2019-01-08] MEDS ORDERED: HumaLOG INSULIN (NovoLOG) PER UNIT SC SCH (17:30)
[2019-01-08] MEDS: HumaLOG INSULIN (NovoLOG) PER UNIT SC SCH ×2 (18:35→23:40)
[2019-01-08] MEDS: ceFAZolin SOD 1 GM in D5W MINI-BAG PLUS 50 ML IV SCH (18:35)
[2019-01-08] MEDS: LEVALBUTEROL 1.25 MG/0.5 ML CONCENTRATE NEB NEB SCH (19:35)
[2019-01-08] MEDS: LATANOPROST 0.005% OPHTH SOLN 2.5 ML OU SCH (20:29)
[2019-01-08] MEDS: HEPARIN SOD (PORCINE) 5000 UNITS/ML VIAL SC SCH (20:29)
[2019-01-08] MEDS: CARVedilol 12.5 MG TAB PO SCH (20:29)
[2019-01-08] MEDS: CINACALCET 30 MG TAB (SENSIPAR) PO SCH (20:29)
[2019-01-08] MEDS: SIMVASTATIN 20 MG TAB PO SCH (20:29)
[2019-01-08] MEDS: DOCUSATE SODIUM 100 MG CAP PO SCH (20:30)
[2019-01-08] MEDS: MAGNESIUM OXIDE 400 MG TAB (MAG-OX) PO SCH (20:30)
[2019-01-09] VITALS (35 sets, daily range): BP systolic 80–148; BP diastolic 53–91; O2SAT 92–100
[2019-01-09] MEDS: LEVALBUTEROL 1.25 MG/0.5 ML CONCENTRATE NEB NEB SCH ×4 (01:38→20:09)
[2019-01-09] MEDS: KETOROLAC 30 MG/ML VIAL (J1885) IV SCH ×4 (02:19→20:24)
[2019-01-09] MEDS: ceFAZolin SOD 1 GM in D5W MINI-BAG PLUS 50 ML IV SCH ×3 (02:19→17:30)
[2019-01-09] MEDS: HumaLOG INSULIN (NovoLOG) PER UNIT SC SCH ×4 (05:21→21:00)
[2019-01-09 05:26] LABS: BASO % 0.2 % (0.0-1.0); EOS % 0.2 % (0.0-3.0); HEMATOCRIT 29.4 % (36.0-47.0); LYMPH # 1.3 10^3/uL (1.5-4.5); LYMPH % 10.5 % (24.0-44.0); MEAN CORPUSCULAR HEMOGLOBIN 26.2 pg (27.0-33.0); MEAN CORPUSCULAR VOLUME 77.2 fl (80.0-96.0); MONO # 1.1 10^3/uL (0.0-0.8); MONO % 9.1 % (0.0-5.0); NEUTROPHILS # 9.7 10^3/uL (1.8-7.7); NEUTROPHILS % 79.7 % (36.0-66.0); PLATELET COUNT, AUTOMATED 238 10^3/uL (150-450); RED BLOOD COUNT 3.81 10^6/uL (4.00-5.40); WHITE BLOOD COUNT 12.1 10^3/uL (4.0-10.0)
[2019-01-09 05:49] LABS: BLOOD UREA NITROGEN 19 MG/DL (7-18); CALCIUM LEVEL 8.8 MG/DL (8.8-10.2); CARBON DIOXIDE LEVEL 25 MEQ/L (21-32); CHLORIDE LEVEL 104 MEQ/L (98-107); CREATININE FOR GFR 0.86 MG/DL (0.55-1.30); GLOMERULAR FILTRATION RATE > 60.0 (>45); GLUCOSE, FASTING 140 MG/DL (70-100); POTASSIUM SERUM 4.5 MEQ/L (3.5-5.1); SODIUM LEVEL 135 MEQ/L (136-145)
[2019-01-09 06:17] LABS: ABG BASE EXCESS -0.4 (-2.0-2.0); ABG HCO3 25.1 MEQ/L (22.0-26.0); ABG O2 SATURATION 93.5 % (95.0-99.0); ABG PARTIAL PRESSURE CO2 44.3 mmHg (35.0-45.0); ABG PARTIAL PRESSURE O2 73.6 mmHg (75.0-100.0); ABG STANDARD HCO3 24.1 MEQ/L (22.0-26.0); ABG TOTAL CO2 26.5 MEQ/L (23.0-31.0); ABG pH (ARTERIAL) 7.371 UNITS (7.350-7.450)
--- NOTE | 2019-01-09 08:57 | REP ---
Clinical: Status post right upper lobectomy. Technique: PA and lateral. Comparison: 01/08/2019. Findings: Two right-sided chest tubes are in stable position. Postsurgical changes involving the right hemithorax including subcutaneous emphysema and mild pleuroparenchymal changes remain stable. Mediastinum and cardiac silhouette are unchanged. Left hemithorax is well-aerated and clear. The previously noted left mid to lower lobe atelectasis has resolved. Skeletal structures stable. Impression: 1. Stable postsurgical changes and minimal pleuroparenchymal changes involving the right hemithorax. Mildly decreased subcutaneous emphysema. 2. Left hemithorax is well-aerated and previously noted atelectasis has resolved. Electronically Signed by Liban Bower MD 01/09/2019 08:49 A
[2019-01-09] MEDS: FENTANYL/BUPIVACAINE/NACL BAG 250 ML EPIDURAL SCH (09:03)
[2019-01-09] MEDS: MOM 30ML SUSPENSION UDC PO SCH (09:04)
[2019-01-09] MEDS: metFORMIN (GLUCOPHAGE) 1000 MG TABLET PO SCH ×2 (09:04→17:30)
[2019-01-09] MEDS: CINACALCET 30 MG TAB (SENSIPAR) PO SCH ×3 (09:04→20:23)
[2019-01-09] MEDS: CYANOCOBALAMIN 500 MCG TAB PO SCH (09:04)
[2019-01-09] MEDS: MAGNESIUM OXIDE 400 MG TAB (MAG-OX) PO SCH ×2 (09:04→20:25)
[2019-01-09] MEDS: PANTOPRAZOLE 40MG TAB (PROTONIX) PO SCH (09:05)
[2019-01-09] MEDS: CARVedilol 12.5 MG TAB PO SCH ×2 (09:05→20:25)
[2019-01-09] MEDS: DOCUSATE SODIUM 100 MG CAP PO SCH ×2 (09:05→20:25)
[2019-01-09] MEDS: ASPIRIN 81 MG ENTERIC TAB PO SCH (09:05)
[2019-01-09] MEDS: amLODIPine 10 MG TAB PO SCH (09:05)
[2019-01-09] MEDS: FOLIC ACID 1 MG TAB PO SCH (09:05)
[2019-01-09] MEDS: HEPARIN SOD (PORCINE) 5000 UNITS/ML VIAL SC SCH ×2 (09:06→20:24)
[2019-01-09] MEDS: TELMISARTAN 20 MG TAB PO SCH (09:06)
--- NOTE | 2019-01-09 11:32 | IPN ---
DATE OF SERVICE: 01/09/2019 This is the first postoperative day for Mrs. Michel, who has had a stable night of surgery. Her pain is being well controlled with the epidural infusion. Her vital signs show a maximum temperature (Tmax) of 98.8 with a heart rate that ranges between 75 and 82 in a sinus rhythm, respiratory rate of 15-20 without the use of accessory muscles who is 100% saturated on 3 liters nasal cannula and whose blood pressure is ranging between 108/62 to 140/86. Her intake and output over the past 24 hours has been recorded as 2040 in and 1863 out for a positivity of 177 mL. She has put 518 mL out of the chest tube. Her estimated blood loss is incorrectly recorded as 650 but rather should be 50. Her urine output has been 695 mL. On physical examination, her lungs show equal breath sounds on either side with occasional rhonchi which clear with coughing. Percussion note is full to the diaphragm. Cardiovascular examination: Is without murmurs, click, gallops, or rubs. I cannot feel her point of maximal impulse (PMI). S1 and S2 are normal. Abdomen is soft and nontender. Bowel sounds are positive. There is no hepatomegaly and no costovertebral angle (CVA) tenderness. Extremities shows no pretibial edema, no calf tenderness, no differential swelling of the upper extremities. Skin is warm, dry, and perfused without cyanosis or mottling, including that of the nail beds and the knees. Neck is supple. There is no jugular venous distention, no subcutaneous emphysema. Trachea is midline. Mouth shows her mucous membranes to be pink and moist. Lips and commissures without lesions. There is no thrush. Eyes show her pupils to be equal and reactive. Extraocular motor intact. Sclerae anicteric. Neurologic shows II-XII intact, along with gross motor and gross sensation intact. Gait is not tested. Psychiatric shows her to be awake and alert, oriented times three, with appropriate mood and affect and conversational. There is no air leak from the chest tube. Her white count today is 12.1 with hemoglobin and hematocrit of 10.0 and 29.4, essentially unchanged from 10.3 and 31.0 yesterday postoperatively. Platelet count is 238 with a differential of 79% neutrophils, 10% lymphocytes, 9% monocytes. There are no immature forms, no toxic granulations. Electrolytes are essentially normal with a BUN and creatinine of 19 and 0.86, a glucose of 140, and a calcium of 8.3. She remains on Toradol. Her blood gases today show a pH of 7.31, PCO2 of 44, and a pO2 of 73 on 3 liters nasal cannula. Base excess is -0.4. Her chest x-ray today shows her lung fully expanded to the chest wall. There is volume loss from the lobectomy. Chest tubes are in good place. Costophrenic angles are sharp. There are no infiltrates either on the lateral or on the PA film. IMPRESSION: 1. Postoperative day #1, status post right upper lobectomy. 2. Clinical stage IA adenocarcinoma. 3. Hypertension. 4. Hyperparathyroidism. 5. Noninsulin-dependent diabetes. 6. History of renal stones. PLAN AND DISCUSSION: Continue her chest tube on suction today. I will also diurese her today. She will be transferred to the progressive care unit (PCU), as she is doing so well, and we will discontinue her arterial line. We will await pathology.
[2019-01-09] MEDS: TORSEMIDE 10 MG TABLET PO SCH (12:14)
[2019-01-09] MEDS ORDERED: NALOXONE INJ 0.4 MG/1 ML VIAL (J2310) IV PRN (12:15)
[2019-01-09] MEDS ORDERED: WALLBOXKEY XX PRN (12:15)
[2019-01-09] MEDS ORDERED: diphenhydrAMINE INJ 50MG/ML VIAL (J1200) IV PRN (12:15)
[2019-01-09] MEDS ORDERED: METOCLOPRAMIDE INJ 10MG/2ML VIAL (J2765) IV PRN (12:15)
[2019-01-09] MEDS ORDERED: EPIDURAL/PCA KEYS XX PRN (12:15)
[2019-01-09] MEDS ORDERED: ONDANSETRON 4MG/2ML VIAL (J2405) IV PRN (12:15)
--- NOTE | 2019-01-09 13:55 | RO ---
DATE OF PROCEDURE: 01/08/2019 PREPROCEDURE DIAGNOSIS: Right upper lobe lung cancer, adenocarcinoma. POSTPROCEDURE DIAGNOSIS: Right upper lobe lung cancer, adenocarcinoma. PROCEDURES: Right upper lobectomy, mediastinal lymphadenectomy, five-level rib block, bronchoscopy, and azygos vein bronchoplasty. SURGEON: Lorenzo Sterling MD SET UP MECHANIC: ANESTHESIA: FINDINGS: The bronchoscopy revealed a normal branching tracheobronchial tree. There were no endobronchial lesions. There were gratifyingly scant secretions. The thoracotomy and lobectomy revealed a complete major fissure and a partial right minor fissure. She had a somewhat difficult anatomy in that the pulmonary arteries came off at slightly different angles, which made the dissection a little more long and tedious. Her mediastinal nodes were beneath the vena cava rather than adjacent to it. There was generalized inflammatories over the vessels. The lesion was an approximate 1 to 1.5 cm lesion that could be palpated in the upper aspect of the right upper lobe. DESCRIPTION OF PROCEDURE: Under satisfactory general anesthesia and single-lumen endotracheal intubation, the bronchoscope was passed in the tracheobronchial tree. The above findings were noted. Each segment and subsegment were thoroughly inspected, and there were no endobronchial lesions. The patient was then turned into the left lateral decubitus position and sterilely prepped and draped in the usual sterile fashion. An incision was made just below the scapula. It was noted that she has a very large lipoma over the scapula, but this did not interfere with the incision. The latissimus dorsi was divided, anterior serratus were spared. The chest was then entered through the 5th intercostal space. The above findings were noted in regard to the fissures. Dissection was started at the confluence of fissures where a lower lobe artery was found and then dissected upward to the interlobar pulmonary artery. The apical basilar segmental coronary artery was identified; and after incising the mediastinal pleura posteriorly, a tract was made between the intralobar artery and the mediastinal pleura. The major fissure was completed by use of a DAYAN stapler. Dissection was then carried proximally towards the takeoff of the middle lobe vessels. This was a very crowded anatomy; and, therefore, attention was turned to the takeoff of the apical right upper lobe artery. This was slowly and gingerly dissected because of the inflammatory response around it. Finally, it could be surrounded with a vessel loop, and it was divided by use of a vascular ski tip stapler. In order to get to this artery and completely dissect it, a branch of the vein was taken first with the same type of stapler. The superior pulmonary vein was identified, as was the middle lobe branch. The middle lobe branch was preserved, and the vein was dissected off the pulmonary artery. This again was surrounded with a vascular vessel loop and stapled the same vascular ski tip stapler. Attention was again turned to the confluence of fissures and the section of intralobar pulmonary artery. Deep in the depths beneath the incomplete fissure, the posterior ascending vessel could be identified. A tunnel was made between the takeoff of the middle lobe vessels and the middle lobe vein. This fissure was then completed by using a DAYAN stapler in two swipes. After completing the fissure, I could then divide the posterior ascending pulmonary artery with the ski tip vascular stapler. This then left the bronchus, which was dissected free of adhesive tissue and isolated. This was divided by use of a TA35 4.8 stapler, and the bronchus stump was amputated. It was tested to 30 cm of water without leaking. The azygous vein was dissected free and divided at the junction with the superior vena cava (SVC). It was then stapled at its base with two vascular staplers and filleted in preparation for a bronchoplastic flap. Prior to the bronchoplastic flap, however, the mediastinal node dissection was undertaken. This was again somewhat tedious and difficult in that the jeannette packet was lying medially underneath the vena cava. These were dissected out with the harmonic scalpel to seal any lymphatic channels. After removing the packet, there was no lymphatic leak. The mediastinal node space was then filled with Tisseel glue. The bronchoplastic flap was then constructed with interrupted 3-0 Vicryl sutures.. A five-level rib block consisting of Exparel and Marcaine was injected, and two chest tubes were placed, a straight #24 and a curved #24 posteriorly. The lung was reinflated, and Tisseel glue was applied to the staple lines and to the amputated vessels. The ribs were closed with interrupted figure-of-8 pericostal sutures of #1 Prolene. The extrathoracic muscles were reapproximated by use of running #0 Vicryl suture, the subcutaneous tissue by use of #3-0 Vicryl suture, and the skin by use of #3-0 Monocryl subcuticular suture. The patient tolerated the procedure well and left the operating room in satisfactory condition to the recovery room.
[2019-01-09] MEDS: FENTANYL/BUPIVACAINE BAG 250 ML EPIDURAL SCH (14:32)
[2019-01-09] MEDS: SIMVASTATIN 20 MG TAB PO SCH (20:24)
[2019-01-09] MEDS: LATANOPROST 0.005% OPHTH SOLN 2.5 ML OU SCH (20:24)
[2019-01-10] VITALS (25 sets, daily range): BP systolic 83–137; BP diastolic 53–82; O2SAT 95–98
[2019-01-10] MEDS: LEVALBUTEROL 1.25 MG/0.5 ML CONCENTRATE NEB NEB SCH ×4 (02:00→19:59)
[2019-01-10] MEDS: ceFAZolin SOD 1 GM in D5W MINI-BAG PLUS 50 ML IV SCH ×2 (02:10→09:25)
[2019-01-10] MEDS: KETOROLAC 30 MG/ML VIAL (J1885) IV SCH (02:15)
[2019-01-10 06:01] LABS: BASO % 0.2 % (0.0-1.0); EOS # 0.1 10^3/uL (0.0-0.50); EOS % 1.2 % (0.0-3.0); HEMATOCRIT 31.3 % (36.0-47.0); HEMOGLOBIN 10.4 g/dl (12.0-15.5); LYMPH # 1.2 10^3/uL (1.5-4.5); LYMPH % 12.1 % (24.0-44.0); MEAN CORPUSCULAR HEMOGLOBIN 26.3 pg (27.0-33.0); MEAN CORPUSCULAR HGB CONC 33.2 g/dl (32.0-36.5); NEUTROPHILS # 7.2 10^3/uL (1.8-7.7); NEUTROPHILS % 75.8 % (36.0-66.0); PLATELET COUNT, AUTOMATED 203 10^3/uL (150-450); RED BLOOD COUNT 3.96 10^6/uL (4.00-5.40); WHITE BLOOD COUNT 9.5 10^3/uL (4.0-10.0)
[2019-01-10 06:18] LABS: CALCIUM LEVEL 9.3 MG/DL (8.8-10.2); CREATININE FOR GFR 1.25 MG/DL (0.55-1.30); GLOMERULAR FILTRATION RATE 55.5 (>45)
--- NOTE | 2019-01-10 08:09 | REP ---
Clinical: Status post right upper lobectomy. Technique: PA and lateral. Comparison: 01/09/2019, 01/08/2019. Findings: Two right-sided chest tubes are in relatively stable position. Postsurgical changes and pleuroparenchymal changes involving the right hemithorax remain stable. Small amount of subcutaneous emphysema noted primarily at the thoracic inlet and decreased from prior examination. Trace left basilar atelectasis at the costophrenic angle suggested. Mediastinum and cardiac silhouette are stable. Impression: Relatively stable/minimally improved appearance to the right hemithorax. Trace left basilar atelectasis. Electronically Signed by Liban Bower MD 01/10/2019 08:01 A
[2019-01-10] MEDS: TELMISARTAN 20 MG TAB PO SCH (09:00)
[2019-01-10] MEDS: amLODIPine 10 MG TAB PO SCH (09:00)
[2019-01-10] MEDS: CARVedilol 12.5 MG TAB PO SCH ×2 (09:00→21:00)
[2019-01-10] MEDS: ASPIRIN 81 MG ENTERIC TAB PO SCH (09:13)
[2019-01-10] MEDS: HumaLOG INSULIN (NovoLOG) PER UNIT SC SCH ×4 (09:13→21:00)
[2019-01-10] MEDS: DOCUSATE SODIUM 100 MG CAP PO SCH ×2 (09:13→21:16)
[2019-01-10] MEDS: FERROUS SULFATE 325MG TAB PO SCH (09:14)
[2019-01-10] MEDS: FOLIC ACID 1 MG TAB PO SCH (09:14)
[2019-01-10] MEDS: CINACALCET 30 MG TAB (SENSIPAR) PO SCH ×3 (09:14→21:18)
[2019-01-10] MEDS: HEPARIN SOD (PORCINE) 5000 UNITS/ML VIAL SC SCH ×2 (09:15→21:18)
[2019-01-10] MEDS: MAGNESIUM OXIDE 400 MG TAB (MAG-OX) PO SCH ×2 (09:15→21:17)
[2019-01-10] MEDS: CYANOCOBALAMIN 500 MCG TAB PO SCH (09:15)
[2019-01-10] MEDS: PANTOPRAZOLE 40MG TAB (PROTONIX) PO SCH (09:15)
[2019-01-10] MEDS: metFORMIN (GLUCOPHAGE) 1000 MG TABLET PO SCH ×2 (09:16→17:04)
[2019-01-10] MEDS: MOM 30ML SUSPENSION UDC PO SCH (09:19)
[2019-01-10] MEDS: FUROSEMIDE 40 MG/4 ML VIAL (J1940) IV SCH (09:20)
[2019-01-10] MEDS: TORSEMIDE 10 MG TABLET PO SCH (09:25)
[2019-01-10] MEDS: FENTANYL/BUPIVACAINE BAG 250 ML EPIDURAL SCH (14:24)
--- NOTE | 2019-01-10 15:50 | IPN ---
DATE: 01/10/2019 This is now the second postoperative day for Mrs. Michel. She has some increased pain anteriorly today and the nursing staff is going to increase her epidural. She has been very active with ambulation and sitting up. Her vital signs show a maximum temperature (Tmax) of 99.0 with a heart rate that ranges between 95 and 127 in a sinus tachycardia. Respiratory rate is 18 to 20 without the use of accessory muscles who is 94 to 98% saturated now on room air, and blood pressure ranges between 92/60 to 100/67. Her intake and output over the past 24 hours has been recorded as 1430 in and 1400 out for near equality. She has put out 625 mL from the chest tube. Her weight is 89.5 kg compared to 77.7 kg yesterday. PHYSICAL EXAMINATION LUNGS: She has some coarse rhonchi on the left side, most of which clears with coughing. There is no subcutaneous emphysema. She has otherwise equal breath sounds on either side. Percussion note is full to the diaphragm. CARDIAC EXAM: Without murmurs, clicks, gallops or rubs. I cannot feel her point of maximum impulse (PMI). S1, S2 are normal. ABDOMEN: Soft, nontender. Bowel sounds positive. There is no hepatomegaly. No costovertebral angle tenderness. EXTREMITIES: Show no pretibial edema. No calf tenderness. No differential swelling of the upper extremities. SKIN: Warm, dry and perfused without cyanosis or mottling, including that of the nail beds and knees. NECK: Supple. There is no jugular venous distention. No subcutaneous emphysema. Trachea is midline. MOUTH: Shows her mucous membranes to be pink and moist. Lips and commissures without lesions. There is no thrush. EYES: Show her pupils to be equal and reactive. Extraocular motion intact. Sclerae anicteric. NEUROLOGIC: Shows II through XII intact with gross motor and gross sensation intact. Gait is not tested. PSYCHIATRIC: Shows her to be awake and alert, oriented times three with appropriate mood and affect and conversational. Her white count today is down to 9.5 with a hemoglobin and hematocrit of 10.4 and 31.3 respectively and a platelet count of 230, which is stable. Differential shows 75% neutrophils, 12% lymphocytes, 10% monocytes. There are no immature forms, no toxic granulations. Electrolytes are essentially normal with a marginally low sodium at 134. BUN and creatinine are 31 and 1.25, up from 19 and 0.86 yesterday. I have discontinued her Toradol. Glucose is 131 with a calcium of 9.3. There are no blood gases on her today. Her chest x-ray today shows the lung fully expanded to the chest wall. There is no subcutaneous emphysema. Costophrenic angles are sharp. There are no infiltrates either on the lateral or the PA film. Chest tubes are in good place. There is obligate volume loss on the right side from the lobectomy. Pathology has been reported back as adenocarcinoma with all nodes negative. The greatest tumor dimension is 1.2 cm. This therefore makes her a IA2 disease of staging. Her TNM stage is [id number]. IMPRESSION: 1. Postoperative day #2, status post right upper lobectomy. 2. Pathology stage IA2 adenocarcinoma. 3. Hypertension. 4. Hyperparathyroidism. 5. Noninsulin-dependent diabetes. 6. History of renal stones. PLAN AND DISCUSSION: I will diurese her today as she is putting a lot out of the chest tubes. There is no air leak and I will discontinue the suction. We will encourage her again with ambulation. I have informed the patient of her pathologic diagnosis and no need for adjuvant chemotherapy.
[2019-01-10] MEDS: LATANOPROST 0.005% OPHTH SOLN 2.5 ML OU SCH (21:19)
[2019-01-10] MEDS: SIMVASTATIN 20 MG TAB PO SCH (21:19)
[2019-01-11] VITALS (19 sets, daily range): BP systolic 82–123; BP diastolic 53–71; O2SAT 93–94
[2019-01-11] MEDS: LEVALBUTEROL 1.25 MG/0.5 ML CONCENTRATE NEB NEB SCH ×4 (02:00→20:07)
[2019-01-11 05:19] LABS: BASO % 0.2 % (0.0-1.0); EOS # 0.1 10^3/uL (0.0-0.50); HEMATOCRIT 28.9 % (36.0-47.0); HEMOGLOBIN 9.6 g/dl (12.0-15.5); LYMPH # 1.2 10^3/uL (1.5-4.5); LYMPH % 11.2 % (24.0-44.0); MEAN CORPUSCULAR HEMOGLOBIN 25.3 pg (27.0-33.0); MEAN CORPUSCULAR HGB CONC 33.2 g/dl (32.0-36.5); MEAN CORPUSCULAR VOLUME 76.3 fl (80.0-96.0); MONO # 1.1 10^3/uL (0.0-0.8); MONO % 10.4 % (0.0-5.0); NEUTROPHILS # 8.3 10^3/uL (1.8-7.7); NEUTROPHILS % 76.6 % (36.0-66.0); PLATELET COUNT, AUTOMATED 241 10^3/uL (150-450); RED BLOOD COUNT 3.79 10^6/uL (4.00-5.40); WHITE BLOOD COUNT 10.9 10^3/uL (4.0-10.0)
[2019-01-11 05:34] LABS: BLOOD UREA NITROGEN 30 MG/DL (7-18); CARBON DIOXIDE LEVEL 27 MEQ/L (21-32); CHLORIDE LEVEL 103 MEQ/L (98-107); CREATININE FOR GFR 0.92 MG/DL (0.55-1.30); GLOMERULAR FILTRATION RATE > 60.0 (>45); GLUCOSE, FASTING 112 MG/DL (70-100); POTASSIUM SERUM 4.8 MEQ/L (3.5-5.1); SODIUM LEVEL 135 MEQ/L (136-145)
--- NOTE | 2019-01-11 07:58 | REP ---
Status post right upper lobectomy. Technique: PA and lateral. Comparison: 01/10/2019. Findings: Two right-sided chest tubes and minimal postsurgical changes are appreciated. Small residual right apical pneumothorax identified along with trace subcutaneous emphysema. Remainder of lung de la rosa are stable. No new acute process identified. Mediastinum and cardiac silhouette are unchanged. Impression: Small residual right apical pneumothorax Postoperative changes involving the right hemithorax essentially unchanged. No new acute process. Electronically Signed by Liban Bower MD 01/11/2019 07:49 A
[2019-01-11] MEDS: HumaLOG INSULIN (NovoLOG) PER UNIT SC SCH ×4 (09:46→21:00)
[2019-01-11] MEDS: FUROSEMIDE 40 MG/4 ML VIAL (J1940) IV SCH (09:50)
[2019-01-11] MEDS: TORSEMIDE 10 MG TABLET PO SCH (09:50)
[2019-01-11] MEDS: CYANOCOBALAMIN 500 MCG TAB PO SCH (09:51)
[2019-01-11] MEDS: HEPARIN SOD (PORCINE) 5000 UNITS/ML VIAL SC SCH ×2 (09:51→20:36)
[2019-01-11] MEDS: metFORMIN (GLUCOPHAGE) 1000 MG TABLET PO SCH ×2 (09:51→17:31)
[2019-01-11] MEDS: TELMISARTAN 20 MG TAB PO SCH (09:51)
[2019-01-11] MEDS: ASPIRIN 81 MG ENTERIC TAB PO SCH (09:52)
[2019-01-11] MEDS: amLODIPine 10 MG TAB PO SCH (09:52)
[2019-01-11] MEDS: FOLIC ACID 1 MG TAB PO SCH (09:52)
[2019-01-11] MEDS: PANTOPRAZOLE 40MG TAB (PROTONIX) PO SCH (09:52)
[2019-01-11] MEDS: DOCUSATE SODIUM 100 MG CAP PO SCH ×2 (09:52→20:37)
[2019-01-11] MEDS: CINACALCET 30 MG TAB (SENSIPAR) PO SCH ×3 (09:52→20:37)
[2019-01-11] MEDS: CARVedilol 12.5 MG TAB PO SCH ×2 (09:53→21:00)
[2019-01-11] MEDS: MAGNESIUM OXIDE 400 MG TAB (MAG-OX) PO SCH ×2 (09:53→20:37)
[2019-01-11] MEDS: MOM 30ML SUSPENSION UDC PO SCH (09:53)
[2019-01-11] MEDS: KETOROLAC 30 MG/ML VIAL (J1885) IV SCH ×3 (09:54→20:36)
--- NOTE | 2019-01-11 11:39 | IPN ---
DATE: 01/11/2019 This is now the third postoperative day for Mrs. Michel. She is doing quite well. Pain is being well controlled with the epidural. Her output from the chest tube has markedly decreased. Her vital signs show a maximum temperature (Tmax) of 98.8 with a heart rate that ranges between 88 and 114 in a sinus rhythm. Respiratory rate is 16 to 22 without the use of accessory muscles who is 93 to 95% saturated now on room air, and blood pressure ranges between 114/59 to 105/66. Her intake and output over the past 24 hours has been recorded as 1916 in and 1125 out for positivity of 791 mL. She has put out 110 mL from the chest tube and there is no air leak. Her weight today is pending. PHYSICAL EXAMINATION LUNGS: She has some scattered rhonchi, most of which clears with coughing bilaterally. Percussion note is full to the diaphragm. CARDIAC EXAM: Without murmurs, clicks, gallops or rubs. I cannot feel her point of maximum impulse (PMI). S1, S2 are normal. ABDOMEN: Soft, nontender. Bowel sounds positive. There is no hepatomegaly. No costovertebral angle tenderness. EXTREMITIES: Show no pretibial edema. No calf tenderness. No differential swelling of the upper extremities. SKIN: Warm, dry and perfused without cyanosis or mottling, including that of the nail beds and knees. NECK: Supple. There is no jugular venous distention. No subcutaneous emphysema. Trachea is midline. MOUTH: Shows her mucous membranes to be pink and moist. Lips and commissures without lesions. There is no thrush. EYES: Show her pupils to be equal and reactive. Extraocular motion intact. Sclerae anicteric. NEUROLOGIC: Shows II through XII intact with gross motor and gross sensation intact. Gait is not tested by me but she has had a full day of ambulation this morning according to the nursing staff. PSYCHIATRIC: Shows her to be awake and alert, oriented times three with appropriate mood and affect and conversational. Her electrolytes are normal with a BUN and creatinine of 30 and 0.92 down from 31 and 1.5 yesterday. Glucose is 112 with a calcium of 9.0. White count is 10.9 with a hemoglobin and hematocrit of 9.6 and 28.9 respectively. It is down from 10.4 and 31.3 yesterday probably secondary to hemodilution. Platelet count is 241 and differential shows 76% neutrophils, 11% lymphocytes, 10% monocytes. There are no immature forms, no toxic granulations. Her chest x-ray today shows the lung fully expanded to the chest wall. There is obligate volume loss from the lobectomy on the right side. Costophrenic angles are sharp. I see no infiltrates on the lateral or the PA film. Chest tubes are in good place. IMPRESSION: 1. Postoperative day #3, status post right upper lobectomy. 2. Pathology stage IA2 adenocarcinoma [id number]. 3. Hypertension. 4. Hyperparathyroidism. 5. Noninsulin-dependent diabetes. 6. History of renal stones. PLAN AND DISCUSSION: I will continue to gently diurese her today. I will remove her chest tubes from suction. She already has transfer orders to the PCU. I am very gratified of her progress.
[2019-01-11] MEDS: FENTANYL/BUPIVACAINE BAG 250 ML EPIDURAL SCH (15:54)
[2019-01-11] MEDS: SIMVASTATIN 20 MG TAB PO SCH (20:37)
[2019-01-11] MEDS: LATANOPROST 0.005% OPHTH SOLN 2.5 ML OU SCH (20:38)
[2019-01-12] VITALS (14 sets, daily range): BP systolic 102–137; BP diastolic 60–70; O2SAT 91–100
[2019-01-12] MEDS: LEVALBUTEROL 1.25 MG/0.5 ML CONCENTRATE NEB NEB SCH ×4 (00:37→20:27)
[2019-01-12] MEDS: KETOROLAC 30 MG/ML VIAL (J1885) IV SCH ×4 (03:48→20:20)
[2019-01-12 05:21] LABS: BASO % 0.2 % (0.0-1.0); EOS # 0.2 10^3/uL (0.0-0.50); EOS % 2.5 % (0.0-3.0); HEMATOCRIT 27.8 % (36.0-47.0); HEMOGLOBIN 9.1 g/dl (12.0-15.5); LYMPH # 1.6 10^3/uL (1.5-4.5); LYMPH % 17.6 % (24.0-44.0); MEAN CORPUSCULAR HEMOGLOBIN 25.6 pg (27.0-33.0); MEAN CORPUSCULAR HGB CONC 32.7 g/dl (32.0-36.5); MEAN CORPUSCULAR VOLUME 78.1 fl (80.0-96.0); MONO % 10.9 % (0.0-5.0); NEUTROPHILS # 6.1 10^3/uL (1.8-7.7); NEUTROPHILS % 68.2 % (36.0-66.0); PLATELET COUNT, AUTOMATED 242 10^3/uL (150-450); RED BLOOD COUNT 3.56 10^6/uL (4.00-5.40); WHITE BLOOD COUNT 8.9 10^3/uL (4.0-10.0)
[2019-01-12 05:56] LABS: BLOOD UREA NITROGEN 39 MG/DL (7-18); CALCIUM LEVEL 8.7 MG/DL (8.8-10.2); CARBON DIOXIDE LEVEL 29 MEQ/L (21-32); CHLORIDE LEVEL 102 MEQ/L (98-107); CREATININE FOR GFR 1.08 MG/DL (0.55-1.30); GLOMERULAR FILTRATION RATE > 60.0 (>45); GLUCOSE, FASTING 103 MG/DL (70-100); POTASSIUM SERUM 4.8 MEQ/L (3.5-5.1); SODIUM LEVEL 138 MEQ/L (136-145)
[2019-01-12] MEDS: DOCUSATE SODIUM 100 MG CAP PO SCH ×2 (08:59→20:21)
[2019-01-12] MEDS: HEPARIN SOD (PORCINE) 5000 UNITS/ML VIAL SC SCH ×2 (08:59→20:21)
[2019-01-12] MEDS: FUROSEMIDE 40 MG/4 ML VIAL (J1940) IV SCH (08:59)
[2019-01-12] MEDS: FOLIC ACID 1 MG TAB PO SCH (08:59)
[2019-01-12] MEDS: PANTOPRAZOLE 40MG TAB (PROTONIX) PO SCH (08:59)
[2019-01-12] MEDS: CARVedilol 12.5 MG TAB PO SCH ×2 (09:00→21:00)
[2019-01-12] MEDS: metFORMIN (GLUCOPHAGE) 1000 MG TABLET PO SCH ×2 (09:00→18:31)
[2019-01-12] MEDS: CYANOCOBALAMIN 500 MCG TAB PO SCH (09:00)
[2019-01-12] MEDS: amLODIPine 10 MG TAB PO SCH (09:00)
[2019-01-12] MEDS: CINACALCET 30 MG TAB (SENSIPAR) PO SCH ×3 (09:00→20:20)
[2019-01-12] MEDS: HumaLOG INSULIN (NovoLOG) PER UNIT SC SCH ×4 (09:01→20:21)
[2019-01-12] MEDS: TELMISARTAN 20 MG TAB PO SCH (09:01)
[2019-01-12] MEDS: MAGNESIUM OXIDE 400 MG TAB (MAG-OX) PO SCH ×2 (09:01→20:21)
[2019-01-12] MEDS: ASPIRIN 81 MG ENTERIC TAB PO SCH (09:01)
[2019-01-12] MEDS: FERROUS SULFATE 325MG TAB PO SCH (09:01)
[2019-01-12] MEDS: MOM 30ML SUSPENSION UDC PO SCH (09:02)
[2019-01-12] MEDS: TORSEMIDE 10 MG TABLET PO SCH (09:05)
--- NOTE | 2019-01-12 09:17 | REP ---
Clinical: Status post right upper lobectomy. Technique: PA and lateral. Comparison: 01/11/2019. Findings: Two right-sided chest tubes are again identified in stable position. Small residual right apical pneumothorax is again identified along with minimal postsurgical changes. Small amount of subcutaneous emphysema appears essentially unchanged. No new process identified. Impression: 1. Small right apical pneumothorax along with a mild postsurgical changes involving the right hemithorax remains stable. 2. No new acute process identified. Electronically Signed by Liban Bower MD 01/12/2019 09:08 A
--- NOTE | 2019-01-12 12:52 | IPN ---
DATE: 01/12/2019 This is now the fourth postoperative day for Mrs. Michel. Her pain is being well controlled with the epidural catheter. She has drained less than 200 mL for the past two days and I will discontinue her chest tube. Her vital signs show a maximum temperature (Tmax) of 98.2 with a heart rate that ranges between 69 and 80 in a sinus rhythm, a respiratory rate of 16 to 20 without the use of accessory muscles who is 97% saturated on room air, and whose blood pressure is ranging between 137/70 to 135/66. Her intake and output over the past 24 hours has been recorded as 1554 in and 1655 out for an negativity of 100 mL. She has put 195 mL out the chest tube and there is no air leak. Her weight is pending today. On physical examination, she has some faint crackles on the right side. These occur during late inspiration. Percussion notes are full to the diaphragm. CARDIAC EXAM: Without murmurs, clicks, gallops or rubs. I cannot feel her point of maximum impulse (PMI). S1 and S2 are normal. ABDOMEN: Soft, nontender. Bowel sounds positive. There is no hepatomegaly. No costovertebral angle tenderness. EXTREMITIES: Show no pretibial edema. No calf tenderness. No differential swelling of the upper extremities. SKIN: Warm, dry and perfused without cyanosis or mottling, including that of the nail beds and knees. NECK: Supple. There is no jugular venous distention. No subcutaneous emphysema. Trachea is midline. MOUTH: Shows her mucous membranes to be pink and moist. Lips and commissures without lesions. There is no thrush. EYES: Show her pupils to be equal and reactive. Extraocular motion intact. Sclerae anicteric. NEUROLOGIC: Shows II-XII intact along with gross motor and gross sensation intact. Gait is not tested. PSYCHIATRIC: Shows her to be awake and alert, oriented times three with appropriate mood and affect and conversational. Her white count today is 8.9 with a hemoglobin and hematocrit of 9.1 and 27.8, slightly down from 9.6 and 28.9. Her platelet count is 242 and stable. Differential shows 68% neutrophils, 17% lymphocytes, 10% monocytes. There are no immature forms and no toxic granulations. Her electrolytes are normal with a BUN and creatinine of 39 and 1.08, up from 30 and 0.92 yesterday. There are no blood gases on her today. Her chest x-ray today shows her lung fully expanded to the chest wall. The costophrenic angles are sharp. There is a small apical air space in the left hemithorax. Chest tubes are in good place. There are no infiltrates on the PA or the lateral films. IMPRESSION: 1. Postoperative day #4, status post right upper lobectomy. 2. Pathologic stage IA2 adenocarcinoma [id number]. 3. Hypertension. 4. Hyperparathyroidism. 5. Non insulin dependent diabetes. 6. History of renal stones. PLAN AND DISCUSSION: As noted above, I will remove her chest tube today. Will wean the epidural and start her on oral pain control. Will discontinue her Patricia catheter. If all goes well, will plan for discharge in the morning.
[2019-01-12] MEDS: FENTANYL/BUPIVACAINE BAG 250 ML EPIDURAL SCH (15:38)
[2019-01-12] MEDS: LATANOPROST 0.005% OPHTH SOLN 2.5 ML OU SCH (20:20)
[2019-01-12] MEDS: SIMVASTATIN 20 MG TAB PO SCH (20:21)
[2019-01-13] VITALS (9 sets, daily range): BP systolic 108–119; BP diastolic 64–73; O2SAT 91–98
[2019-01-13] MEDS: LEVALBUTEROL 1.25 MG/0.5 ML CONCENTRATE NEB NEB SCH ×2 (00:50→07:17)
[2019-01-13] MEDS: KETOROLAC 30 MG/ML VIAL (J1885) IV SCH ×2 (03:53→08:46)
[2019-01-13 04:45] LABS: BASO % 0.4 % (0.0-1.0); EOS # 0.2 10^3/uL (0.0-0.50); EOS % 2.5 % (0.0-3.0); HEMATOCRIT 27.5 % (36.0-47.0); LYMPH # 1.3 10^3/uL (1.5-4.5); MEAN CORPUSCULAR HEMOGLOBIN 25.5 pg (27.0-33.0); MEAN CORPUSCULAR HGB CONC 32.7 g/dl (32.0-36.5); MEAN CORPUSCULAR VOLUME 77.9 fl (80.0-96.0); MONO % 12.5 % (0.0-5.0); NEUTROPHILS # 5.3 10^3/uL (1.8-7.7); NEUTROPHILS % 67.7 % (36.0-66.0); PLATELET COUNT, AUTOMATED 269 10^3/uL (150-450); RED BLOOD COUNT 3.53 10^6/uL (4.00-5.40); WHITE BLOOD COUNT 7.9 10^3/uL (4.0-10.0)
[2019-01-13 05:08] LABS: CALCIUM LEVEL 8.4 MG/DL (8.8-10.2); CREATININE FOR GFR 1.18 MG/DL (0.55-1.30); GLOMERULAR FILTRATION RATE 59.3 (>45); POTASSIUM SERUM 4.7 MEQ/L (3.5-5.1)
[2019-01-13] MEDS: HumaLOG INSULIN (NovoLOG) PER UNIT SC SCH (07:30)
--- NOTE | 2019-01-13 08:15 | REP ---
Status post right upper lobectomy. Technique: PA and lateral. Comparison: 01/12/2019. Findings: Previously noted right chest tubes have been removed. A very small right apical pneumothorax may be slightly improved from prior examination. Postsurgical pleuroparenchymal changes involving the right hemithorax are again noted. New findings include tenting to the right diaphragmatic surface. The left hemithorax is well-aerated and clear. The mediastinum and cardiac silhouette are stable. The skeletal structures are stable. Impression: Chest tubes removed and a small right apical pneumothorax may be minimally improved. Electronically Signed by Liban Bower MD 01/13/2019 08:07 A
[2019-01-13] MEDS: CARVedilol 12.5 MG TAB PO SCH (08:35)
[2019-01-13] MEDS: TELMISARTAN 20 MG TAB PO SCH (08:36)
[2019-01-13] MEDS: CINACALCET 30 MG TAB (SENSIPAR) PO SCH (08:44)
[2019-01-13] MEDS: MOM 30ML SUSPENSION UDC PO SCH (08:44)
[2019-01-13] MEDS: MAGNESIUM OXIDE 400 MG TAB (MAG-OX) PO SCH (08:45)
[2019-01-13] MEDS: DOCUSATE SODIUM 100 MG CAP PO SCH (08:45)
[2019-01-13] MEDS: PANTOPRAZOLE 40MG TAB (PROTONIX) PO SCH (08:45)
[2019-01-13] MEDS: HEPARIN SOD (PORCINE) 5000 UNITS/ML VIAL SC SCH (08:45)
[2019-01-13] MEDS: FOLIC ACID 1 MG TAB PO SCH (08:45)
[2019-01-13] MEDS: CYANOCOBALAMIN 500 MCG TAB PO SCH (08:45)
[2019-01-13] MEDS: ASPIRIN 81 MG ENTERIC TAB PO SCH (08:45)
[2019-01-13] MEDS: metFORMIN (GLUCOPHAGE) 1000 MG TABLET PO SCH (08:45)
[2019-01-13] MEDS: TORSEMIDE 10 MG TABLET PO SCH (08:45)
[2019-01-13] MEDS: amLODIPine 10 MG TAB PO SCH (08:46)
[2019-01-13] MEDS: FUROSEMIDE 40 MG/4 ML VIAL (J1940) IV SCH (08:46)
[2019-01-13] MEDS ORDERED: PERCOCET PO (10:02)
--- NOTE | 2019-01-13 12:06 | DSES ---
DATE OF ADMISSION: 01/08/2019 DATE OF DISCHARGE: 01/13/2019 DISCHARGE DIAGNOSES: 1. Postoperative day #5, status post right upper lobectomy. 2. Pathologic stage IA2 adenocarcinoma [id number]. 3. Hypertension. 4. Hyperparathyroidism. 5. Non-insulin dependent diabetes. 6. History of renal stones. HOSPITAL COURSE: The patient is a 63-year-old Black female who underwent a preoperative workup for a kidney stone where a right upper lobe lesion was discovered. This led to a CT scan and a PET scan, which led to an eventual biopsy, which showed adenocarcinoma. Her preoperative FEV1 was 2.05, which was 91% of predicted. She is a smoker of about one pack per day and quit 1 month ago. She had mild emphysematous changes throughout her lung, particularly in the upper lobes. She, therefore, was taken to the operating room on 01/08/2019, where she underwent a right upper lobectomy with a mediastinal lymphadenectomy. Pathology was reported back as moderately differentiated adenocarcinoma with a tumor size of 1.2 cm with all nodes negative, making her a [id number] or stage IA2 disease. The markers have been sent out for epidermal growth factor receptor (EGFR), ROS1, ALK, and PD-L1, along with MMR IHC, which are all pending. As she has stage IA disease, she will not need adjuvant chemotherapy. She is being discharged today on her home medications, which include amlodipine 10 mg every day, aspirin 81 mg every day, carvedilol 12.5 mg every day, Sensipar 60 mg three times a day, vitamin B12 500 every day, ferrous sulfate 325 mg qod, folic acid 1 mg every day, metformin 1000 mg twice a day, omeprazole 40 mg every day, simvastatin 40 mg nightly, Micardis 80 mg every day, torsemide 10 mg every day, and Travatan Z one drop both eyes (OU) every day. She is also being sent home on Percocet 5/325 every 4 hours as needed pain. She will return to see me in 1 week with a chest x-ray in postoperative followup.
== END 2019-01-13 10:31 | disposition home or self-care (01) | DRG 165 ==
LOC: M OR 07:40 → M ICU 16:11
PROVIDERS: ADMIT Thoracic Surgery (Cardiothoracic Vascular Surgery); ATTEND Thoracic Surgery (Cardiothoracic Vascular Surgery)
PROC: 0WBC0ZZ Excision of Mediastinum, Open Approach (ICD-10-PCS; 2019-01-08)
PROC: 0BJ08ZZ Inspection of Tracheobronchial Tree, Via Natural or Artificial Opening Endoscopic (ICD-10-PCS; 2019-01-08)
PROC: 0BTC0ZZ Resection of Right Upper Lung Lobe, Open Approach (ICD-10-PCS; principal; 2019-01-08 09:45)
DX: C34.11 Malignant neoplasm of upper lobe, right bronchus or lung (principal); I10 Essential (primary) hypertension; E11.9 Type 2 diabetes mellitus without complications; E21.0 Primary hyperparathyroidism; E78.5 Hyperlipidemia, unspecified; Z87.442 Personal history of urinary calculi; Z79.82 Long term (current) use of aspirin; Z79.84 Long term (current) use of oral hypoglycemic drugs; Z79.899 Other long term (current) drug therapy; Z85.41 Personal history of malignant neoplasm of cervix uteri; Z90.710 Acquired absence of both cervix and uterus; Z92.3 Personal history of irradiation; Z87.891 Personal history of nicotine dependence; Z88.8 Allergy status to other drugs, medicaments and biological substances

== ENCOUNTER → 2019-01-27 | Outpatient (CLI) | payer MEDICARE, OTHER ==
[~2019-01-27] MED LIST changes: +PERCOCET PO
--- NOTE | 2019-01-27 12:34 | REP ---
Chest two views HISTORY: Right upper lobe neoplasm Comparison: 01/13/2019 There is loss of volume in the right hemithorax. Parenchymal densities are present in the right lung consistent with scarring. There is tenting of the right hemidiaphragm. The left lung is clear. The heart is normal in size. The pulmonary vasculature is normal in appearance. The bony structure is intact. IMPRESSION: Right lung scarring. Electronically Signed by William Marcos MD 01/27/2019 12:26 P
== END ==
LOC: M SMT 09:54
PROVIDERS: ATTEND Thoracic Surgery (Cardiothoracic Vascular Surgery)
DX: J98.4 Other disorders of lung (principal)

== ENCOUNTER → 2019-02-06 | Outpatient (CLI) | payer MEDICARE, OTHER ==
--- NOTE | 2019-02-06 18:31 | REP ---
CT study abdomen and pelvis without IV or oral contrast: History: Hydronephrosis. History of kidney stones. Comparison sonography December 31, 2018. Comparison CT study July 24, 2018. CT findings: Preliminary digital executive assistant to president radiograph demonstrates multiple surgical clips in the pelvis. There is moderate stool in the proximal colon. There is blunting of the right pleural angle indicating right pleural effusion. Axial CT images confirm the presence of small new right pleural effusion. There is vascular calcification. There is some linear plate-like atelectasis. This may be post thoracotomy change. There are one or two granulomatous calcifications in the liver. The spleen is normal in size homogeneous in texture. No abnormalities noted in the gallbladder or the pancreas. There is no hydronephrosis in the right kidney. There is moderate to severe hydronephrosis affecting the left kidney and a left-sided hydroureter is seen to the level of the mid ureteral segment. No ureteral calculus is observed. No mass lesion or adenopathy is seen. Left-sided hydronephrosis is more pronounced than it was July 24, 2018. The right-sided hydronephrosis has resolved. There is an intrarenal calculus in the lower pole of the left kidney which measures 7 mm in diameter. This was not observed on the previous CT study. No retroperitoneal mass or adenopathy is seen. There is left colonic diverticulosis. The uterus is surgically absent. There are pelvic clips bilaterally. No abdominal wall defect is seen. Impression: There is moderate left-sided hydronephrosis and hydroureter to the mid ureteral segment. No stone is seen in the ureter. There is a 7 mm calculus in the lower pole collecting system of the left kidney however. The hydronephrosis on the left is more pronounced than on July 24, 2018. No hydronephrosis is visible today on the right. Electronically Signed by Lang López MD 02/06/2019 07:58 P
== END ==
LOC: M RAD 17:36
PROVIDERS: ATTEND Nurse Practitioner Women's Health
DX: N13.39 Other hydronephrosis (principal); N20.0 Calculus of kidney; Z87.442 Personal history of urinary calculi

== ENCOUNTER → 2019-02-17 | Outpatient (CLI) | payer MEDICARE, OTHER ==
[~2019-02-17] MED LIST changes: +CYAN100049 PO; +CYAN500T8 PO; +MM S100C PO; -STOO100C PO; -VITA10002 PO; -VITA500T3 PO; +ZANT150T40 PO; -ZANTTAB PO
--- NOTE | 2019-02-17 09:37 | REP ---
Clinical: Postoperative followup. Technique: PA and lateral. Comparison: 01/27/2019. Findings: Postsurgical changes involving the right hemithorax including volume loss with tenting to the right diaphragmatic surface and postsurgical sutures/scarring. Stable right rib fractures noted. Left hemithorax is well-aerated and clear. Surgical clips along the left side of the thoracic inlet suggest prior thyroid surgery. Mediastinum and cardiac silhouette normal. Impression: Postsurgical changes involving the right hemithorax remains stable. No new acute process appreciated. Electronically Signed by Liban Bower MD 02/17/2019 09:28 A
== END ==
LOC: M SMT 08:58
PROVIDERS: ATTEND Thoracic Surgery (Cardiothoracic Vascular Surgery)
DX: Z48.3 Aftercare following surgery for neoplasm (principal)

== ENCOUNTER → 2019-02-27 | Outpatient (CLI) | payer MEDICARE ==
[~2019-02-27] MED LIST changes: +OXYB5TAB10 PO; +RECL5INJ2 IV
[2019-02-27 15:42] LABS: HEMOGLOBIN 9.8 g/dl (12.0-15.5); MEAN CORPUSCULAR HEMOGLOBIN 23.6 pg (27.0-33.0); MEAN CORPUSCULAR HGB CONC 31.6 g/dl (32.0-36.5); MEAN CORPUSCULAR VOLUME 74.7 fl (80.0-96.0); PLATELET COUNT, AUTOMATED 356 10^3/uL (150-450); RED BLOOD COUNT 4.15 10^6/uL (4.00-5.40); WHITE BLOOD COUNT 6.1 10^3/uL (4.0-10.0)
[2019-02-27 15:51] LABS: CALCIUM LEVEL 9.6 MG/DL (8.8-10.2); CREATININE FOR GFR 1.54 MG/DL (0.55-1.30); GLOMERULAR FILTRATION RATE 43.6 (>45); POTASSIUM SERUM 5.2 MEQ/L (3.5-5.1)
== END ==
LOC: M WUC 11:17
PROVIDERS: ATTEND Urology
DX: Z01.812 Encounter for preprocedural laboratory examination (principal); N20.0 Calculus of kidney; N13.5 Crossing vessel and stricture of ureter without hydronephrosis; N39.0 Urinary tract infection, site not specified

== ENCOUNTER → 2019-03-04 | Outpatient (REF) | payer MEDICARE ==
[~2019-03-04] MED LIST changes: -OXYB5TAB10 PO; -RECL5INJ2 IV
[2019-03-04 14:01] LABS: BASO % 0.5 % (0.0-1.0); EOS # 0.1 10^3/uL (0.0-0.50); EOS % 2.2 % (0.0-3.0); HEMATOCRIT 34.1 % (36.0-47.0); LYMPH # 1.3 10^3/uL (1.5-4.5); LYMPH % 23.6 % (24.0-44.0); MEAN CORPUSCULAR HGB CONC 32.3 g/dl (32.0-36.5); MEAN CORPUSCULAR VOLUME 74.3 fl (80.0-96.0); MONO # 0.6 10^3/uL (0.0-0.8); MONO % 10.4 % (0.0-5.0); NEUTROPHILS # 3.4 10^3/uL (1.8-7.7); NEUTROPHILS % 62.9 % (36.0-66.0); PLATELET COUNT, AUTOMATED 334 10^3/uL (150-450); RED BLOOD COUNT 4.59 10^6/uL (4.00-5.40); WHITE BLOOD COUNT 5.5 10^3/uL (4.0-10.0)
[2019-03-04 14:24] LABS: ALBUMIN 3.8 GM/DL (3.2-5.2); BLOOD UREA NITROGEN 23 MG/DL (7-18); CALCIUM LEVEL 10.4 MG/DL (8.8-10.2); CARBON DIOXIDE LEVEL 28 MEQ/L (21-32); CHLORIDE LEVEL 104 MEQ/L (98-107); CREATININE FOR GFR 1.03 MG/DL (0.55-1.30); FERRITIN 62 NG/ML (8-252); GLOMERULAR FILTRATION RATE > 60.0 (>45); GLUCOSE, FASTING 65 MG/DL (70-100); IRON (FE) 51 UG/DL (50-170); MAGNESIUM LEVEL 1.6 MG/DL (1.8-2.4); PERCENT SATURATION 13.4 % (13.2-45.0); PHOSPHORUS LEVEL 3.5 MG/DL (2.5-4.9); POTASSIUM SERUM 5.1 MEQ/L (3.5-5.1); SODIUM LEVEL 140 MEQ/L (136-145); TOTAL IRON BINDING CAPACITY 382 UG/DL (250-450)
== END ==
LOC: M SFHCPLAZ 13:05
PROVIDERS: ATTEND Family Medicine
DX: N17.9 Acute kidney failure, unspecified (principal)

== ENCOUNTER 2019-03-07 07:24 | Day surgery (SDC) | payer MEDICARE ==
[~2019-03-07] VITALS: Ht 175.3 cm; Wt 93.8 kg
[~2019-03-07 07:24] MED LIST changes: +LIDOCAINE 1% MDV 20ML VIAL SQ PRN; +LR 1,000 ML IV ONE; +OXYB5TAB10 PO; +RECL5INJ2 IV
[2019-03-07] MEDS ORDERED: LIDOCAINE 2% INJ 100 MG/5 ML SDV (FOR ANES.) As Ordered ONE (08:03)
[2019-03-07] MEDS ORDERED: PROPOFOL 200 MG/20 ML VIAL As Ordered ONE (08:03)
[2019-03-07] MEDS ORDERED: dexameTHASONE 4 MG/ML 1ML VIAL (J1100) As Ordered ONE (08:03)
[2019-03-07] MEDS ORDERED: ONDANSETRON 4MG/2ML VIAL (J2405) As Ordered ONE (08:03)
[2019-03-07] MEDS ORDERED: fentaNYL 100 MCG/2 ML INJECTION (J3010) As Ordered ONE (08:04)
[2019-03-07] MEDS ORDERED: MIDAZOLAM INJ 2 MG/2 ML VIAL (J2250) As Ordered ONE (08:08)
[2019-03-07] MEDS ORDERED: CONRAY-60 60% 50ML VIAL (Q9961) As Ordered ONE (10:02)
[2019-03-07] MEDS ORDERED: METOCLOPRAMIDE INJ 10MG/2ML VIAL (J2765) As Ordered ONE (10:24)
[2019-03-07] MEDS ORDERED: ePHEDrine SULFATE 25 MG/5 ML(5MG/ML) SYRINGE As Ordered ONE (10:27)
[2019-03-07] MEDS ORDERED: PHENYLephrine HCL 500 MCG/5 ML (100MCG/ML) SYRINGE (J2370) As Ordered ONE (10:42)
[2019-03-07] MEDS ORDERED: HYDROMORPHONE HCL 0.5 MG/ 0.5 ML SYRINGE (J1170 PER 1) IV PRN (12:00)
[2019-03-07] MEDS ORDERED: PERCOCET 5MG/325MG TAB PO PRN ×2 (12:00→12:15)
[2019-03-07] MEDS ORDERED: LR 1,000 ML IV SCH (12:00)
[2019-03-07] MEDS ORDERED: fentaNYL 100 MCG/2 ML INJECTION (J3010) IV PRN (12:00)
[2019-03-07] MEDS ORDERED: ONDANSETRON 4MG/2ML VIAL (J2405) IV PRN (12:00)
--- NOTE | 2019-03-07 12:44 | REP ---
Retrograde pyelogram: Six views. History: Cystoscopy. Findings: A sequence of six last image hold fluoroscopically obtained spot radiographs of the abdomen document left ureteral cannulation, contrast injection, and double pigtail stent placement. Fluoroscopy time is reported as 1 minute 21 seconds. Electronically Signed by Lang López MD 03/07/2019 01:05 P
[2019-03-07 13:27] VITALS: BP 133/81
--- NOTE | 2019-03-10 14:03 | RO ---
DATE OF PROCEDURE: 03/07/2019 PREPROCEDURE DIAGNOSES: Left ureteral stricture, left kidney stone. POSTPROCEDURE DIAGNOSES: Left ureteral stricture, left kidney stone. PROCEDURE: Cystoscopy, left ureteroscopy with balloon dilation of ureteral stricture, left retrograde pyelogram with intraoperative interpretation of images, left ureteral stent placement. SURGEON: Dr. Ed Crum COMMISSIONED SECURITY OFFICER: None. ANESTHESIA: General. OPERATIVE INDICATIONS: This is a 63-year-old female with a history of left ureteral stricture who on recent imaging was found to have hydroureteronephrosis down to distal ureter, as well as possible small kidney stone. She was brought to the operating room today for the above-listed procedure. DESCRIPTION OF PROCEDURE: The patient was brought to the operating room, where general anesthesia was induced. Prophylactic antibiotics were infused. She was then placed in the dorsal lithotomy position and prepped and draped in the usual sterile fashion. A rigid cystoscope was then inserted into the urethral meatus and advanced into the bladder. A guidewire was advanced up the left collecting system. I then went up the left collecting system with a short semirigid ureteroscope and within the distal ureter it was noted to be too narrow to allow me to advance the ureteroscope beyond that point. I tried to shoot a retrograde pyelogram and all the contrast came back down. None of the contrast went into the more proximal ureter. At this point, I traded the ureteroscope out and then advanced a balloon dilator over the wire. I then dilated the stricture to 15 Lao several times and each time I left the balloon up for about 1 minute. I did this for a length of approximately 4 to 5 cm. Once this was done, I removed the balloon and went back up with a short semi rigid ureteroscope. I was able to get the scope up and then the ureter was more open. There was a significant amount of scarring in the ureter, raising the concern that this will recur. At this point, I traded the short semirigid ureteroscope out for a ureteral access and advanced up into the left collecting system. I went up the access sheath with a flexible ureteroscope and was able to advance the ureteroscope all the way up to the kidney. Note, there is severe tortuosity of the ureter and dilation of the kidney. Once inside the kidney, I thoroughly examined and it was extremely dilated. I could not find the stone after taking at least four or five passes around the kidney. At this point, a retrograde pyelogram was performed and was notable for severe hydronephrosis, no extravasation. I then withdrew the ureteroscope along with the access sheath and no stones were seen within the ureter. Of note, the ureter once again was dilated in the area of the stricture, but there was a significant amount of scarring. Once the ureteroscope was out, I then utilized the wire to advance a #7 Lao x 22-32 cm JJ ureteral stent up the left collecting system. The wire was then removed, and there were adequate curls of the stent in the left renal pelvis and in the bladder. The bladder was then emptied of all fluid, and this marked the conclusion of the procedure. The patient was then taken out of the dorsal lithotomy position, awakened from anesthesia, and transported to the recovery room in stable condition. ESTIMATED BLOOD LOSS: 5 mL. COMPLICATIONS: None. SPECIMENS: None. PLAN: I will the patient's stent in for approximately 6 weeks. I will also get a KUB to check for the stone seen on CT scan, as I was not able to find it today. SHELLEY
== END 2019-03-07 13:35 | disposition home or self-care (01) ==
LOC: M SDC 07:24
PROVIDERS: ATTEND Urology
DX: N13.1 Hydronephrosis with ureteral stricture, not elsewhere classified (principal); N20.0 Calculus of kidney; E11.9 Type 2 diabetes mellitus without complications; I10 Essential (primary) hypertension; K21.9 Gastro-esophageal reflux disease without esophagitis; E03.9 Hypothyroidism, unspecified; E04.9 Nontoxic goiter, unspecified; M81.0 Age-related osteoporosis without current pathological fracture; Z87.891 Personal history of nicotine dependence; Z88.8 Allergy status to other drugs, medicaments and biological substances; Z79.899 Other long term (current) drug therapy; Z79.82 Long term (current) use of aspirin; Z79.84 Long term (current) use of oral hypoglycemic drugs
CPT/HCPCS: 52332; 52341; 74420; C1769; C1894; C2617; J0690; J1100; J2250; J2370; J2405; J2765; J3010; Q9961

== ENCOUNTER → 2019-03-20 | Outpatient (CLI) | payer MEDICARE ==
[~2019-03-20] MED LIST changes: -LIDOCAINE 1% MDV 20ML VIAL SQ PRN; -LR 1,000 ML IV ONE
--- NOTE | 2019-03-20 09:46 | REP ---
Clinical: Postoperative evaluation. Technique: PA and lateral. Comparison: 02/17/2019. Findings: Right-sided pleuroparenchymal changes and stable rib fractures are again identified and unchanged. There is subtle atelectasis to the left base cannot be excluded. No pneumothorax. Mediastinum and cardiac silhouette are stable. Surgical material at the right hilum and overlying the region of the thyroid again noted. Impression: 1. Subtle new left basilar atelectasis cannot be excluded. 2. Presumed surgical changes involving the right hemithorax including rib fractures and tenting to the diaphragmatic surface are unchanged. Electronically Signed by Liban Bower MD 03/20/2019 09:37 A
== END ==
LOC: M SMT 09:25
PROVIDERS: ATTEND Thoracic Surgery (Cardiothoracic Vascular Surgery)
DX: Z48.3 Aftercare following surgery for neoplasm (principal)

== ENCOUNTER → 2019-04-22 | Outpatient (REF) | payer MEDICARE | LOC: M SMT 18:24 | PROVIDERS: ATTEND Urology | DX: Z01.818 Encounter for other preprocedural examination (principal); N20.0 Calculus of kidney; N39.0 Urinary tract infection, site not specified ==

== ENCOUNTER → 2019-04-22 | Outpatient (CLI) | payer MEDICARE ==
[~2019-04-22] MED LIST changes: +LEVA1TAB2 PO
--- NOTE | 2019-04-22 13:46 | REP ---
Clinical: Nephrolithiasis. Technique: Single supine view of the abdomen and pelvis. Findings: Left ureteral stent in satisfactory position. 6 mm left renal stone is suggested. Bowel gas pattern is nonspecific although fecal stasis and possible constipation cannot be excluded. Skeletal structures demonstrate age-related changes. Impression: 1. Suspected 6 mm left renal calculus. Electronically Signed by Liban Bower MD 04/22/2019 01:38 P
== END ==
LOC: M SMT 13:19
PROVIDERS: ATTEND Urology
DX: N20.0 Calculus of kidney (principal)
CPT/HCPCS: 74018; 87088; 87186; G0463

== ENCOUNTER 2019-05-01 06:31 | Day surgery (SDC) | payer MEDICARE ==
[~2019-05-01] VITALS: Ht 175.3 cm; Wt 96.2 kg
[~2019-05-01 06:31] MED LIST changes: -LEVA1TAB2 PO; +LR 1,000 ML IV ONE
[2019-05-01 07:32] LABS: HEMATOCRIT 31.3 % (36.0-47.0); MEAN CORPUSCULAR HEMOGLOBIN 23.9 pg (27.0-33.0); MEAN CORPUSCULAR HGB CONC 31.9 g/dl (32.0-36.5); MEAN CORPUSCULAR VOLUME 74.9 fl (80.0-96.0); PLATELET COUNT, AUTOMATED 211 10^3/uL (150-450); RED BLOOD COUNT 4.18 10^6/uL (4.00-5.40)
[2019-05-01] MEDS ORDERED: LEVA1TAB2 PO (07:41)
[2019-05-01] MEDS ORDERED: LIDOCAINE 2% INJ 100 MG/5 ML SDV (FOR ANES.) As Ordered ONE (07:49)
[2019-05-01] MEDS ORDERED: ONDANSETRON 4MG/2ML VIAL (J2405) As Ordered ONE (07:49)
[2019-05-01] MEDS ORDERED: PROPOFOL 200 MG/20 ML VIAL As Ordered ONE (07:49)
[2019-05-01] MEDS ORDERED: fentaNYL 100 MCG/2 ML INJECTION (J3010) As Ordered ONE (07:50)
[2019-05-01] MEDS ORDERED: MIDAZOLAM INJ 2 MG/2 ML VIAL (J2250) As Ordered ONE (07:50)
[2019-05-01 08:01] LABS: BLOOD UREA NITROGEN 19 MG/DL (7-18); CALCIUM LEVEL 9.3 MG/DL (8.8-10.2); CARBON DIOXIDE LEVEL 30 MEQ/L (21-32); CHLORIDE LEVEL 106 MEQ/L (98-107); CREATININE FOR GFR 0.95 MG/DL (0.55-1.30); GLOMERULAR FILTRATION RATE > 60.0 (>45); GLUCOSE, FASTING 149 MG/DL (70-100); POTASSIUM SERUM 4.4 MEQ/L (3.5-5.1); SODIUM LEVEL 141 MEQ/L (136-145)
[2019-05-01] MEDS ORDERED: PHENYLephrine HCL 500 MCG/5 ML (100MCG/ML) SYRINGE (J2370) As Ordered ONE (08:57)
--- NOTE | 2019-05-01 09:33 | REP ---
KUB: Single view. HISTORY: Kidney stone. Comparison KUB April 22, 2019. FINDINGS: Multiple surgical clips are seen scattered throughout the pelvis as before. There are central abdominal surgical clips as well. Double pigtail left ureteral stent is noted in place. There is a irregular 8 mm calculus projecting over the lower pole of the left kidney unchanged from the comparison radiograph. No other urinary tract calculus is appreciated. IMPRESSION: Intrarenal nephrolithiasis on the left. Left ureteral stent. Multiple surgical clips. Normal bowel gas pattern. Electronically Signed by Lang López MD 05/01/2019 12:55 P
[2019-05-01] MEDS ORDERED: ePHEDrine SULFATE 25 MG/5 ML(5MG/ML) SYRINGE As Ordered ONE (10:03)
[2019-05-01 10:34] VITALS: BP 129/73
--- NOTE | 2019-05-01 20:12 | RO ---
DATE OF PROCEDURE: 05/01/2019 PREPROCEDURE DIAGNOSIS: Left kidney stone. POSTPROCEDURE DIAGNOSIS: Left kidney stone. PROCEDURE: Left extracorporeal shock wave lithotripsy, cystoscopy with removal of left ureteral stent. SURGEON: Dr. Ed Crum INTERNATIONAL RECRUITER: None. ANESTHESIA: Monitored anesthesia care (MAC). OPERATIVE INDICATIONS: This is a 63-year-old female who was brought to the operating room a few weeks ago for cystoscopy with left ureteroscopy and balloon dilatation and an attempted laser lithotripsy. At that time, her left kidney stone could not be seen. She followed up in the office a week or two ago. An x-ray was notable for the stone still being present. She was, therefore, brought to the operating room today to fragment the stone using extracorporeal shock wave lithotripsy and to remove her ureteral stent. DESCRIPTION OF PROCEDURE: The patient was brought to the operating room and MAC anesthesia was administered. Prophylactic antibiotics were infused. She was then placed in the supine position and then prepped and draped for a flexible cystoscopy. A flexible cystoscope was then inserted into the urethral meatus and advanced into the bladder. The previously placed stent on the left side was then grasped and withdrawn completely. Once the stent was removed, we then proceeded with the extracorporeal shock wave lithotripsy. Fluoroscopy was utilized to monitor stone position and fragmentation throughout the procedure. Shock waves were then delivered to the left-sided kidney stone, ungated. There were no arrhythmias. The stone did appear to fragment well. After 2500 shocks, the procedure was concluded. The patient was then awakened from anesthesia and transported to the recovery room in stable condition. Estimated blood loss: 0 mL. Complications: None. Specimens: None. Plan: The patient is to followup in the clinic in approximately 6 weeks, and I will get a renal ultrasound prior to assess for hydronephrosis, which would indicate a recurrence of her stricture. We will also check to see if the stone is completely gone. SHELLEY
== END 2019-05-01 10:48 | disposition home or self-care (01) ==
LOC: M SDC 06:31
PROVIDERS: ATTEND Urology
DX: N20.0 Calculus of kidney (principal); E11.9 Type 2 diabetes mellitus without complications; K21.9 Gastro-esophageal reflux disease without esophagitis; E03.9 Hypothyroidism, unspecified; M81.0 Age-related osteoporosis without current pathological fracture; F41.9 Anxiety disorder, unspecified; K57.90 Diverticulosis of intestine, part unspecified, without perforation or abscess without bleeding; Z79.84 Long term (current) use of oral hypoglycemic drugs; Z92.3 Personal history of irradiation; Z85.41 Personal history of malignant neoplasm of cervix uteri; Z79.899 Other long term (current) drug therapy; Z87.891 Personal history of nicotine dependence
CPT/HCPCS: 36415; 50590; 52310; 74018; 80048; 85027; J0690; J2250; J2370; J2405; J3010

== ENCOUNTER → 2019-06-06 | Outpatient (REF) | payer MEDICARE ==
[~2019-06-06] MED LIST changes: +LEVA1TAB2 PO; -LR 1,000 ML IV ONE; -OMEP40CA2; +OMEP40CA97
[2019-06-06 11:15] LABS: BASO % 0.5 % (0.0-1.0); EOS # 0.1 10^3/uL (0.0-0.5); EOS % 1.2 % (0.0-3.0); HEMATOCRIT 32.7 % (36.0-47.0); HEMOGLOBIN 10.5 g/dl (12.0-15.5); LYMPH # 1.2 10^3/uL (1.5-5.0); LYMPH % 20.8 % (24.0-44.0); MEAN CORPUSCULAR HEMOGLOBIN 23.7 pg (27.0-33.0); MEAN CORPUSCULAR HGB CONC 32.1 g/dl (32.0-36.5); MEAN CORPUSCULAR VOLUME 73.8 fl (80.0-96.0); MONO # 0.6 10^3/uL (0.0-0.8); MONO % 10.1 % (0.0-5.0); NEUTROPHILS % 67.1 % (36.0-66.0); PLATELET COUNT, AUTOMATED 274 10^3/uL (150-450); RED BLOOD COUNT 4.43 10^6/uL (4.00-5.40); WHITE BLOOD COUNT 5.9 10^3/uL (4.0-10.0)
[2019-06-06 11:41] LABS: ALBUMIN 3.8 GM/DL (3.2-5.2); ALT/SGPT 16 U/L (12-78); BILIRUBIN,TOTAL 0.3 MG/DL (0.2-1.0); BLOOD UREA NITROGEN 22 MG/DL (7-18); CALCIUM LEVEL 10.1 MG/DL (8.8-10.2); CARBON DIOXIDE LEVEL 25 MEQ/L (21-32); CHLORIDE LEVEL 108 MEQ/L (98-107); CREATININE FOR GFR 1.01 MG/DL (0.55-1.30); GLOMERULAR FILTRATION RATE > 60.0 (>45); GLUCOSE, FASTING 78 MG/DL (70-100); POTASSIUM SERUM 4.4 MEQ/L (3.5-5.1); SODIUM LEVEL 141 MEQ/L (136-145); TOTAL PROTEIN 8.2 GM/DL (6.4-8.2)
== END ==
LOC: M SFHCPLAZ 10:08
PROVIDERS: ATTEND Physician Assistant Medical
DX: K62.5 Hemorrhage of anus and rectum (principal)
CPT/HCPCS: 80053; 85025; G0463

== ENCOUNTER → 2019-06-10 | Outpatient (CLI) | payer MEDICAID, MEDICARE ==
--- NOTE | 2019-06-10 18:13 | REP ---
Clinical: Nephrolithiasis. Technique: Real time juarez scale and color evaluation using curved array transducer. Findings: Right kidney is normal in contour, size, echogenicity, and reniform shape without hydronephrosis, nephrolithiasis, cystic or renal mass lesion. Right kidney measures 12.0 x 6.0 x 6.5 cm. The left kidney measures 11.9 x 7.3 x 8.0 cm with marked hydroureteronephrosis including dilated ureter measuring 8 mm diameter with a 7 x 4 mm obstructing calculus in the distal ureter suggested. Bladder demonstrates normal right ureteral jet. Impression: 1. left-sided obstructive uropathy with severe hydroureteronephrosis and 7 mm obstructing distal ureteral calculus. 2. Normal right kidney. Electronically Signed by Liban Bower MD 06/10/2019 06:05 P
== END ==
LOC: M RAD 15:30
PROVIDERS: ATTEND Urology
DX: N13.2 Hydronephrosis with renal and ureteral calculous obstruction (principal)

== ENCOUNTER → 2019-08-18 | Outpatient (CLI) | payer MEDICARE ==
[~2019-08-18] MED LIST changes: +SIMV40TA20 PO
--- NOTE | 2019-08-19 09:51 | REP ---
Clinical: Nephrolithiasis. Technique: Axial noncontrast images from the lung bases to the pubic symphysis with coronal and sagittal re-formations. Comparison: 02/06/2019. Findings: Grade IV left hydroureteronephrosis along with small layering calculus in the dilated lower pole tc is appreciated as well as moderate grade II right hydroureteronephrosis without nephrolithiasis. No obvious obstructing ureteral calculi are identified. The ureters appear dilated to the level of the mid pelvis and then obscured by adjacent loops of bowel as well as atherosclerotic vasculature and surgical clips in the pelvis related to prior hysterectomy. Obstruction may be secondary to extrinsic ureteral compression or stricture. The bladder is grossly unremarkable. Liver, spleen, pancreas, gallbladder, and bilateral adrenal glands are normal for noncontrast evaluation. The enteric system demonstrates diverticulosis without evidence for diverticulitis. No bowel obstruction or acute inflammatory process. Pelvis demonstrates relatively normal bladder and evidence for prior hysterectomy. No ascites. No free air. No adenopathy. Atherosclerotic changes to the aorta and vasculature noted. Lung bases are clear. Impression: 1. Bilateral hydroureteronephrosis (left greater than right) along with nonobstructing left renal calculus. These findings may represent chronic change as no obstructing calculi are appreciated. Details as above. 2. Diverticulosis without acute diverticulitis. 3. Atherosclerotic disease to the vasculature. Electronically Signed by Liban Bower MD 08/19/2019 09:43 A
== END ==
LOC: M RAD 18:05
PROVIDERS: ATTEND Urology
DX: N20.0 Calculus of kidney (principal)

== ENCOUNTER 2019-09-10 13:44 | Outpatient (CLI) | payer MEDICARE ==
[~2019-09-10] VITALS: Ht 170.2 cm; Wt 98.0 kg
[2019-09-10 14:17] VITALS: BP 164/81
[2019-09-10] MEDS ORDERED: ZOLEDRONIC ACID 5 MG in IV 1 EA IV ONE (15:00)
[2019-09-10 15:06] VITALS: BP 141/81
== END 2019-09-10 15:10 | disposition home or self-care (01) ==
LOC: M INFU 13:44
PROVIDERS: ATTEND Family Medicine
DX: Z01.818 Encounter for other preprocedural examination (principal); M85.80 Other specified disorders of bone density and structure, unspecified site; Z88.8 Allergy status to other drugs, medicaments and biological substances; Z91.048 Other nonmedicinal substance allergy status; N13.5 Crossing vessel and stricture of ureter without hydronephrosis; N39.0 Urinary tract infection, site not specified
CPT/HCPCS: 36415; 80048; 85027; 87086; 96365; J3489

== ENCOUNTER → 2019-09-10 | Outpatient (CLI) | payer MEDICARE ==
[2019-09-10 15:00] LABS: HEMATOCRIT 34.6 % (36.0-47.0); HEMOGLOBIN 10.8 g/dl (12.0-15.5); MEAN CORPUSCULAR HEMOGLOBIN 24.3 pg (27.0-33.0); MEAN CORPUSCULAR HGB CONC 31.2 g/dl (32.0-36.5); MEAN CORPUSCULAR VOLUME 77.9 fl (80.0-96.0); PLATELET COUNT, AUTOMATED 292 10^3/uL (150-450); RED BLOOD COUNT 4.44 10^6/uL (4.00-5.40); WHITE BLOOD COUNT 5.8 10^3/uL (4.0-10.0)
[2019-09-10 15:19] LABS: BLOOD UREA NITROGEN 19 MG/DL (7-18); CALCIUM LEVEL 9.5 MG/DL (8.8-10.2); CARBON DIOXIDE LEVEL 25 MEQ/L (21-32); CHLORIDE LEVEL 102 MEQ/L (98-107); CREATININE FOR GFR 1.01 MG/DL (0.55-1.30); GLOMERULAR FILTRATION RATE > 60.0 (>45); GLUCOSE, FASTING 70 MG/DL (70-100); POTASSIUM SERUM 4.7 MEQ/L (3.5-5.1); SODIUM LEVEL 137 MEQ/L (136-145)
== END ==
LOC: M LAB 13:49
PROVIDERS: ATTEND Urology
DX: Z01.818 Encounter for other preprocedural examination (principal); N13.5 Crossing vessel and stricture of ureter without hydronephrosis; N39.0 Urinary tract infection, site not specified

== ENCOUNTER → 2019-09-11 | Outpatient (REF) | payer MEDICARE ==
[2019-09-11 12:43] LABS: ALBUMIN 3.9 GM/DL (3.2-5.2); ALT/SGPT 16 U/L (12-78); BILIRUBIN,TOTAL 0.3 MG/DL (0.2-1.0); BLOOD UREA NITROGEN 22 MG/DL (7-18); CALCIUM LEVEL 8.9 MG/DL (8.8-10.2); CARBON DIOXIDE LEVEL 25 MEQ/L (21-32); CHLORIDE LEVEL 105 MEQ/L (98-107); CHOLESTEROL LEVEL 226 MG/DL (<200); CHOLESTEROL RISK RATIO 2.935 (<5); CREATININE FOR GFR 0.96 MG/DL (0.55-1.30); FREE T4 1.35 NG/DL (0.76-1.46); GLOMERULAR FILTRATION RATE > 60.0 (>45); GLUCOSE, FASTING 199 MG/DL (70-100); HDL CHOLESTEROL 77 MG/DL (>40); LDL CHOLESTEROL 135 MG/DL (<100); NON-HDL-C 149 MG/DL; POTASSIUM SERUM 4.3 MEQ/L (3.5-5.1); SODIUM LEVEL 139 MEQ/L (136-145); TOTAL PROTEIN 8.1 GM/DL (6.4-8.2); TRIGLYCERIDES LEVEL 70 MG/DL (<150)
[2019-09-11 12:45] LABS: PTH INTACT 219.8 PG/ML (18.5-88.0)
[2019-09-11 13:20] LABS: HEMOGLOBIN A1c 7.2 %
== END ==
LOC: M SFHCPLAZ 09:57
PROVIDERS: ATTEND Family Medicine
DX: D50.9 Iron deficiency anemia, unspecified (principal); E83.52 Hypercalcemia; E11.9 Type 2 diabetes mellitus without complications
CPT/HCPCS: 36415; 80053; 80061; 83036; 83970; 84439; 84443; 85046; G0463

== ENCOUNTER 2019-09-18 11:51 | Day surgery (SDC) | payer MEDICARE ==
[~2019-09-18] VITALS: Ht 175.3 cm; Wt 101.6 kg
[~2019-09-18 11:51] MED LIST changes: +LR 1,000 ML IV ONE; +ceFAZolin SOD 2 GM in IV 1 EA IV ONE
[2019-09-18] MEDS ORDERED: MIDAZOLAM INJ 2 MG/2 ML VIAL (J2250) As Ordered ONE (13:42)
[2019-09-18] MEDS ORDERED: dexameTHASONE 4 MG/ML 1ML VIAL (J1100) As Ordered ONE (13:42)
[2019-09-18] MEDS ORDERED: ONDANSETRON 4MG/2ML VIAL (J2405) As Ordered ONE (13:42)
[2019-09-18] MEDS ORDERED: propofoL 200 MG/20 ML VIAL As Ordered ONE (13:42)
[2019-09-18] MEDS ORDERED: LIDOCAINE 2% INJ 100 MG/5 ML SDV (FOR ANES.) As Ordered ONE (13:42)
[2019-09-18] MEDS ORDERED: fentaNYL 100 MCG/2 ML INJECTION (J3010) As Ordered ONE (13:43)
[2019-09-18] MEDS ORDERED: LIDOCAINE 2% 5ML JELLY UROJET As Ordered ONE (15:09)
[2019-09-18] MEDS ORDERED: CONRAY-60 60% 50ML VIAL (Q9961) As Ordered ONE (15:10)
[2019-09-18] MEDS ORDERED: PHENYLephrine HCL 500 MCG/5 ML (100MCG/ML) SYRINGE (J2370) As Ordered ONE ×2 (16:03→16:30)
[2019-09-18] MEDS ORDERED: PERCOCET 5MG/325MG TAB PO PRN (17:15)
--- NOTE | 2019-09-18 17:47 | REP ---
C-ARM VIEWS DURING LEFT URETERAL STENT PLACEMENT: Three C-ARM views are performed. Contrast partially opacifies the left ureter and moderately dilated pelvicaliceal system. Left ureteral stent is placed. The proximal end is coiled in the region of the left renal pelvis and distally in the urinary bladder. 1 minute and 33 seconds of fluoroscopy time was utilized. Electronically Signed by Sonny Abreu MD 09/19/2019 12:41 P
[2019-09-18 18:00] VITALS: BP 161/79
--- NOTE | 2019-09-18 22:14 | RO ---
DATE OF PROCEDURE: 09/18/2019 PREPROCEDURE DIAGNOSIS: Left ureteral stricture. POSTPROCEDURE DIAGNOSIS: Left ureteral stricture. PROCEDURE: Cystoscopy, left ureteroscopy with balloon dilation, left retrograde pyelogram with intraoperative interpretation of images, left ureteral stent placement. SURGEON: Dr. Ed Crum RIGGER THIRD: None. ANESTHESIA: Monitored anesthesia care (MAC). OPERATIVE INDICATIONS: This is a 63-year-old female with a history of a distal left ureteral stricture. She was brought to the operating room for recurrence of a stricture. DESCRIPTION OF PROCEDURE: The patient was brought to the operating room and MAC anesthesia was administered. Prophylactic antibiotics were infused. She was then placed in the dorsal lithotomy position and prepped and draped in the usual sterile fashion. A rigid cystoscope was inserted into the urethral meatus and advanced into the bladder. Once inside the bladder, a super stiff wire was attempted to be advanced into the left ureter, but it would not go as there was resistance in the distal ureter. I then examined the distal ureter with a short semi-rigid ureteroscope and of note, there was a very narrow stricture in the distal ureter. I advanced the super stiff wire through the stricture and into the left kidney. I also shot a retrograde pyelogram, and it was notable for approximately a 2-3 cm segment of strictured distal left ureter. There was severe hydroureteronephrosis above the level of the stricture. I then removed the ureteroscope and advanced a balloon dilator over the wire. I then inflated the balloon to 15-Belarusian several times in the area of the stricture, each time leaving it up for approximately 30 seconds to a minute. I then removed the balloon dilator and advanced the ureteroscope back in, and of note, the ureter appeared to be a little bit more patent, but it was still too narrow to advance the scope through. At this point, I removed the short semi-rigid ureteroscope and advanced a 5-Belarusian open-ended ureteral catheter up into the left collecting system. A retrograde pyelogram was performed, and was notable for severe left hydronephrosis with no extravasation. I then advanced the wire back up the 5-Belarusian open-ended ureteral catheter and then removed the catheter. I utilized the wire to advance a 7-Belarusian x 24 cm black silicone JJ ureteral stent into the left collecting system. The wire was removed, and there were adequate curls of the stent in the left renal pelvis and in the bladder. The bladder was emptied of all fluids, and this marked the conclusion of the procedure. The patient was then taken out of the dorsal lithotomy position, awakened from anesthesia and transported to the recovery room in stable condition. Estimated blood loss: 5 mL. Complications: None. Specimens: None. Plan: I plan on obtaining a MAG 3 Lasix renal scan on the patient within the next few weeks to assess for the function of her left kidney. I am concerned with the repeated episodes of strictures and hydronephrosis that she might not have much function to this kidney. If there is good function, we will continue with chronic renal stenting. If there is minimal function, we might remove the stent and if she develops pain or repeat infections in the kidney, it would warrant a simple nephrectomy. SHELLEY
== END 2019-09-18 18:10 | disposition home or self-care (01) ==
LOC: M SDC 11:51
PROVIDERS: ATTEND Urology
DX: N13.5 Crossing vessel and stricture of ureter without hydronephrosis (principal); I10 Essential (primary) hypertension; E11.9 Type 2 diabetes mellitus without complications; E03.9 Hypothyroidism, unspecified; K21.9 Gastro-esophageal reflux disease without esophagitis; D64.9 Anemia, unspecified; Z79.82 Long term (current) use of aspirin; Z79.84 Long term (current) use of oral hypoglycemic drugs; Z79.899 Other long term (current) drug therapy; Z88.8 Allergy status to other drugs, medicaments and biological substances; Z85.118 Personal history of other malignant neoplasm of bronchus and lung; Z85.41 Personal history of malignant neoplasm of cervix uteri; Z92.3 Personal history of irradiation; Z87.891 Personal history of nicotine dependence
CPT/HCPCS: 52332; 52341; 74420; C1769; C2617; J1100; J2250; J2370; J2405; J3010; Q9961

== ENCOUNTER → 2019-09-30 | Outpatient (REF) | payer MEDICARE ==
[~2019-09-30] MED LIST changes: -LR 1,000 ML IV ONE; -ceFAZolin SOD 2 GM in IV 1 EA IV ONE
[2019-09-30 20:25] LABS: APPEARANCE, URINE HAZY (CLEAR); BACTERIA, URINE AUTO 1+ (NEGATIVE); BILIRUBIN, URINE AUTO NEGATIVE (NEGATIVE); BLOOD, URINE BLOOD 1+ (NEGATIVE); COLOR, URINE YELLOW (YELLOW); GLUCOSE, URINE (UA) AUTO 1+ mg/dL (NEGATIVE); KETONE, URINE AUTO NEGATIVE (NEGATIVE); LEUKOCYTE ESTERASE, URINE AUTO 3+ (NEGATIVE); NITRITE, URINE AUTO NEGATIVE (NEGATIVE); PROTEIN, URINE AUTO 2+ mg/dL (NEGATIVE); RBC, URINE AUTO 62 /HPF (0-3); SPECIFIC GRAVITY URINE AUTO 1.024 (1.002-1.035); SQUAMOUS EPITHELIAL CELL UR AU 4 /HPF (0-6); WBC, URINE AUTO 37 /HPF (0-3)
== END ==
LOC: M SMT 10:35
PROVIDERS: ATTEND Nurse Practitioner Women's Health
DX: R30.0 Dysuria (principal)

== ENCOUNTER → 2019-10-09 | Outpatient (CLI) | payer MEDICARE ==
--- NOTE | 2019-10-09 15:49 | REP ---
Radionuclide renal scintigraphy with differential flow and function analysis: History: Hydronephrosis. Comparison radionuclide bone scan November 08, 2018. Comparison CT study August 18, 2019. A double pigtail left ureteral stent is in place. Technique: 8.8 mCi of technetium 99m Mag III is injected and posterior flow and excretory phase images are acquired. Renal cortical regions of interest are drawn and time activity curves are plotted for renal function analysis. Scintigraphic findings: Posterior flow study shows normal perfusion of the right kidney and delayed impaired perfusion of the left kidney. There is markedly impaired function of the left kidney with excretory phase imaging showing labeling of the right renal collecting system starting at 3 minutes with some fullness of the intrarenal collecting system. The urinary bladder and ureter are labeled however. The right renal function remains extremely poor throughout the course of the excretory phase image acquisition. Differential renal function analysis is markedly asymmetric with 91% of overall renal cortical counts coming from the right kidney and 9% from the left. Time to half max activity is normal on the right at 2.0 minutes. Time to half max activity is slightly delayed on the right at 16.6 minutes. Time to peak and half max activity are abnormal on the left since there is almost no renal function. Impression: Nearly absent renal function left kidney. Mild fullness of the collecting system of the right kidney. Somewhat delayed excretory function on the right. Electronically Signed by Lang López MD 10/09/2019 05:06 P
== END ==
LOC: M RAD 13:20
PROVIDERS: ATTEND Urology
DX: N13.30 Unspecified hydronephrosis (principal); Z12.2 Encounter for screening for malignant neoplasm of respiratory organs; Z87.891 Personal history of nicotine dependence
CPT/HCPCS: 78707; A9562; G0297

== ENCOUNTER → 2019-10-09 | Outpatient (CLI) | payer MEDICARE ==
--- NOTE | 2019-10-09 14:00 | REP ---
Clinical: Lung screening. History smoking. Comparison: 11/12/2018 Technique: Axial low-dose noncontrast images from the thoracic inlet to the upper abdomen using lung screening technique. Findings: The lung de la rosa are well-aerated with changes related to prior right upper lobectomy noted. No consolidation, significant nodule or mass lesion is appreciated. No pleural effusion/reaction or pneumothorax. Tracheobronchial tree is patent. Mediastinum demonstrates atherosclerotic changes of the coronary arteries and thoracic aorta. Impression: Lung-RADS category I-S. Postsurgical changes consistent with prior right upper lobectomy. No nodule or suspicious abnormality. Electronically Signed by Liban Bower MD 10/09/2019 01:51 P
== END ==
LOC: M RAD 13:22
PROVIDERS: ATTEND Internal Medicine Pulmonary Disease
DX: Z12.2 Encounter for screening for malignant neoplasm of respiratory organs (principal); Z87.891 Personal history of nicotine dependence

== ENCOUNTER → 2020-03-11 | Outpatient (REF) | payer MEDICARE, BC, MEDICAID ==
[~2020-03-11] MED LIST changes: -AMLO10TA5 PO; +AMLO1TAB24 PO; +AMLO1TAB25 PO; -AMLO5TAB6 PO; +VITA-243 PO; -VITA1TAB23 PO; +VITA250T20 PO; -VITA500T PO
== END ==
LOC: M SFHCPLAZ 10:25
PROVIDERS: ATTEND Family Medicine
DX: Z53.9 Procedure and treatment not carried out, unspecified reason (principal); I10 Essential (primary) hypertension; E11.9 Type 2 diabetes mellitus without complications; D50.9 Iron deficiency anemia, unspecified; E53.8 Deficiency of other specified B group vitamins
CPT/HCPCS: 36415; 90670; G0009; G0463

== ENCOUNTER → 2020-05-31 | Outpatient (CLI) | payer MEDICARE, MEDICAID ==
--- NOTE | 2020-06-03 12:53 | REP ---
NONCONTRAST CHEST CT CLINICAL: History of right upper lobe malignancy. COMPARISON: 10/09/2019. TECHNIQUE: Axial noncontrast images from the thoracic inlet to the upper abdomen with coronal and sagittal reformations. FINDINGS: Stable chronic postsurgical changes and pleural parenchymal changes involving the right hemithorax consistent with prior right upper lobectomy again noted. The bilateral lung de la rosa are otherwise well-aerated and clear. No consolidation, significant nodule or mass lesion. No pleural effusion. No pneumothorax. Tracheobronchial tree is relatively patent. No obvious axillary, hilar, or mediastinal adenopathy. Atherosclerotic changes to the thoracic aorta/branch vessels and coronary arteries again noted without aortic aneurysm or cardiomegaly. No pericardial effusion. Limited upper abdomen grossly unremarkable. Musculoskeletal structures demonstrate age-related changes without acute osseous abnormality. IMPRESSION: * Stable chronic postsurgical pleural parenchymal changes involving the right hemithorax consistent with prior right upper lobectomy. No acute mediastinal or pleural parenchymal process. No evidence for recurrence or metastatic disease. MTDD
== END ==
LOC: M RAD 14:34
PROVIDERS: ATTEND Internal Medicine Pulmonary Disease
DX: Z85.118 Personal history of other malignant neoplasm of bronchus and lung (principal); Z90.2 Acquired absence of lung [part of]

== ENCOUNTER → 2020-09-08 | Outpatient (CLI) | payer MEDICARE, MEDICAID ==
[~2020-09-08] MED LIST changes: +CYAN500T14 PO; -CYAN500T8 PO
== END ==
LOC: M LABSMTC 14:22
PROVIDERS: ATTEND Family Medicine
DX: Z20.828 Contact with and (suspected) exposure to other viral communicable diseases (principal)

== ENCOUNTER → 2020-10-13 | Outpatient (CLI) | payer MEDICARE, MEDICAID ==
--- NOTE | 2020-10-13 15:48 | REPMRS ---
Patient History The patient states she had a clinical breast exam in May 2020. Patient has history of cervical cancer at age 34 and lung cancer at age 62. Family history of prostate cancer at age 87 in father. Benign radio exam breast specimen, November 16, 2016. Benign localization of breast nodule of the right breast, November 16, 2016. Stereotatic Loc for ea Lesion of the right breast, August 17, 2016. Benign stereotatic loc for ea lesion of the right breast, November 11, 2012. Digital Woman Screen Mammo: October 13, 2020 - Exam #: [id number] Bilateral CC and MLO view(s) were taken. Technologist: Alison Edmonds, Technologist Prior study comparison: September 02, 2018, bilateral digital woman screen mammo performed at [facility]. July 24, 2017, digital woman screen mammo performed at [facility]. FINDINGS: The breast tissue is almost entirely fat. The Volpara volumetric breast density category is: A. There are 2 needle biopsy marker clips again noted in the upper outer quadrant of the right breast. There has been no change in the appearance of the mammogram from the prior studies. There is no interval development of dominant mass, architectural distortion, or grouped microcalcification typical of malignancy. 3-D tomosynthesis shows no additional findings. Assessment: BI-RADS/ACR category 2 mammogram. Benign Findings. Recommendation Routine screening mammogram of both breasts in 1 year (for women over age 40). This patient's [facility] Lifetime Breast Cancer RIsk is estimated at 4.7 %. This mammogram was interpreted with the aid of an FDA-approved computer-aided dectection system. Electronically Signed By: Kristopher López MD 10/13/20 [id number]
== END ==
LOC: M WHC 13:02
PROVIDERS: ATTEND Family Medicine
DX: Z12.31 Encounter for screening mammogram for malignant neoplasm of breast (principal); Z85.41 Personal history of malignant neoplasm of cervix uteri; Z85.118 Personal history of other malignant neoplasm of bronchus and lung; Z86.018 Personal history of other benign neoplasm; D50.9 Iron deficiency anemia, unspecified; E11.9 Type 2 diabetes mellitus without complications; E83.52 Hypercalcemia

== ENCOUNTER → 2020-10-13 | Outpatient (REF) | payer MEDICARE, MEDICAID ==
[2020-10-13 18:29] LABS: BASO % 0.6 % (0.0-1.0); EOS # 0.1 10^3/uL (0.0-0.5); EOS % 1.5 % (0.0-3.0); HEMATOCRIT 34.9 % (36.0-47.0); HEMOGLOBIN 11.1 g/dl (12.0-15.5); LYMPH # 1.4 10^3/uL (1.5-5.0); LYMPH % 22.2 % (24.0-44.0); MEAN CORPUSCULAR HEMOGLOBIN 24.8 pg (27.0-33.0); MEAN CORPUSCULAR HGB CONC 31.8 g/dl (32.0-36.5); MEAN CORPUSCULAR VOLUME 77.9 fl (80.0-96.0); MONO # 0.8 10^3/uL (0.0-0.8); NEUTROPHILS # 4.1 10^3/uL (1.5-8.5); NEUTROPHILS % 63.1 % (36.0-66.0); PLATELET COUNT, AUTOMATED 276 10^3/uL (150-450); RED BLOOD COUNT 4.48 10^6/uL (4.00-5.40); WHITE BLOOD COUNT 6.5 10^3/uL (4.0-10.0)
[2020-10-13 18:54] LABS: ALBUMIN 3.9 GM/DL (3.2-5.2); BILIRUBIN,TOTAL 0.3 MG/DL (0.2-1.0); CALCIUM LEVEL 9.7 MG/DL (8.8-10.2); CHOLESTEROL RISK RATIO 3.403 (<5); CREATININE FOR GFR 1.28 MG/DL (0.55-1.30); FREE T4 1.32 NG/DL (0.76-1.46); GLOMERULAR FILTRATION RATE 53.8 (>45); POTASSIUM SERUM 4.9 MEQ/L (3.5-5.1); PTH INTACT 253.1 PG/ML (18.5-88.0); THYROID STIMULATING HORMONE 0.628 uIU/ML (0.358-3.740); TOTAL PROTEIN 8.2 GM/DL (6.4-8.2)
[2020-10-13 20:50] LABS: HEMOGLOBIN A1c 7.3 %
== END ==
LOC: M SFHCPLAZ 13:33
PROVIDERS: ATTEND Family Medicine
DX: D50.9 Iron deficiency anemia, unspecified (principal); E11.9 Type 2 diabetes mellitus without complications; E83.52 Hypercalcemia

== ENCOUNTER 2020-10-19 12:45 | Outpatient (CLI) | payer MEDICARE, MEDICAID ==
[~2020-10-19] VITALS: Ht 149.9 cm; Wt 104.3 kg
[2020-10-19 12:50] VITALS: BP 137/73
[2020-10-19] MEDS ORDERED: ZOLEDRONIC ACID 5 MG in IV 1 EA IV ONE (13:30)
[2020-10-19 14:00] VITALS: BP 138/75
== END 2020-10-19 14:00 | disposition home or self-care (01) ==
LOC: M INFU 12:45
PROVIDERS: ATTEND Family Medicine
DX: M85.80 Other specified disorders of bone density and structure, unspecified site (principal); Z88.8 Allergy status to other drugs, medicaments and biological substances; Z91.048 Other nonmedicinal substance allergy status
CPT/HCPCS: 96365; J3489

== ENCOUNTER → 2020-11-22 | Outpatient (CLI) | payer MEDICARE, MEDICAID ==
[2020-11-22 11:29] LABS: BLOOD UREA NITROGEN 27 MG/DL (7-18); GLOMERULAR FILTRATION RATE > 60.0 (>45)
== END ==
LOC: M PLALAB 08:14
PROVIDERS: ATTEND Internal Medicine Pulmonary Disease
DX: C34.11 Malignant neoplasm of upper lobe, right bronchus or lung (principal)

== ENCOUNTER → 2020-11-26 | Outpatient (CLI) | payer MEDICARE, MEDICAID ==
[~2020-11-26] MED LIST changes: +ISOVUE-370 76% 100ML VIAL As Ordered ONE
--- NOTE | 2020-11-26 16:14 | REP ---
INDICATION: MAL NEOPLASM OF RIGHT LUNG. COMPARISON: Chest CT dated 05/31/2020. TECHNIQUE: Chest CT with IV contrast. FINDINGS: The patient has a right upper lobectomy. This is unchanged. There are no lung masses or nodules. There are no infiltrates or pleural effusions. There is chronic curvilinear scarring on the right, unchanged. There is no mediastinal or hilar lymph node enlargement. There is no axillary lymphadenopathy. The thoracic aorta is unremarkable. Cardiac size is normal. There is no pericardial effusion. Upper abdomen: There is marked left renal hydronephrosis with only a thin ribbon of renal cortex in the visualized left renal upper pole. This is unchanged from an abdomen/pelvis CT dated 08/18/2019. The visualized hepatic parenchyma is homogeneous. The gallbladder, pancreas and spleen are unremarkable. The adrenals are unremarkable. There are no lytic, blastic or destructive skeletal changes. IMPRESSION: No evidence of tumor recurrence, adenopathy or metastatic disease. Chronic left renal hydronephrosis. <Electronically signed by Sonny Fulton > 11/26/20 [id number]
== END ==
LOC: M RAD 13:20
PROVIDERS: ATTEND Internal Medicine Pulmonary Disease
DX: C34.11 Malignant neoplasm of upper lobe, right bronchus or lung (principal)
CPT/HCPCS: 71260; Q9967

== ENCOUNTER → 2021-01-06 | Outpatient (REF) | payer MEDICARE, MEDICAID ==
[~2021-01-06] MED LIST changes: -ISOVUE-370 76% 100ML VIAL As Ordered ONE
[2021-01-06 15:35] LABS: BASO % 0.6 % (0.0-1.0); EOS # 0.1 10^3/uL (0.0-0.5); HEMATOCRIT 32.4 % (36.0-47.0); HEMOGLOBIN 10.2 g/dl (12.0-15.5); LYMPH # 1.5 10^3/uL (1.5-5.0); LYMPH % 27.9 % (24.0-44.0); MEAN CORPUSCULAR HEMOGLOBIN 24.5 pg (27.0-33.0); MEAN CORPUSCULAR HGB CONC 31.5 g/dl (32.0-36.5); MEAN CORPUSCULAR VOLUME 77.9 fl (80.0-96.0); MONO # 0.7 10^3/uL (0.0-0.8); MONO % 12.7 % (2.0-8.0); NEUTROPHILS % 56.2 % (36.0-66.0); PLATELET COUNT, AUTOMATED 255 10^3/uL (150-450); RED BLOOD COUNT 4.16 10^6/uL (4.00-5.40); WHITE BLOOD COUNT 5.4 10^3/uL (4.0-10.0)
[2021-01-06 16:00] LABS: ALBUMIN 4.1 GM/DL (3.2-5.2); CALCIUM LEVEL 10.1 MG/DL (8.8-10.2); CHOLESTEROL RISK RATIO 2.545 (<5); CREATININE FOR GFR 1.18 MG/DL (0.55-1.30); FREE T4 1.29 NG/DL (0.76-1.46); GLOMERULAR FILTRATION RATE 58.9 (>45); PHOSPHORUS LEVEL 3.4 MG/DL (2.5-4.9); POTASSIUM SERUM 4.6 MEQ/L (3.5-5.1); THYROID STIMULATING HORMONE 0.829 uIU/ML (0.358-3.740)
[2021-01-06 16:01] LABS: PTH INTACT 269.8 PG/ML (18.5-88.0)
== END ==
LOC: M PLALAB 14:51
PROVIDERS: ATTEND Family Medicine
DX: E21.3 Hyperparathyroidism, unspecified (principal); E78.2 Mixed hyperlipidemia; I10 Essential (primary) hypertension; D50.9 Iron deficiency anemia, unspecified

== ENCOUNTER → 2021-01-21 | Outpatient (CLI) | payer MEDICARE, MEDICAID ==
--- NOTE | 2021-01-21 16:27 | DEXAMM ---
INDICATION: M85.80 OSTEOPENIA. COMPARISON: 07/25/2016, 10/23/2012. TECHNIQUE: Bone density was measured using dual-energy x-ray absorptiometry (DEXA). FINDINGS: AP SPINE L1-L4 BMD 1.065 g/cm2 Young Adult T-Score -1.0 Age Matched Z-Score -0.1. LT FEMUR, TOTAL BMD 0.746 g/cm2 Young Adult T-Score -2.1 Age Matched Z-Score -1.7. LT NECK BMD 0.794 g/cm2 Young Adult T-Score -1.6 Age Matched Z-Score -1.1. RT FEMUR, TOTAL BMD 0.820 g/cm2 Young Adult T-Score -1.5 Age Matched Z-Score -1.2. RT NECK BMD 0.887 g/cm2 Young Adult T-Score -1.1 Age Matched Z-Score -0.4. IMPRESSION: There is low bone density of the spine. There is low bone density of the left hip. There is low bone density of the right hip. The density of the spine has increased 11.9% since the initial exam on 10/23/2012. The density of the spine increased 14.0% since most recent exam on 07/25/2016. The density of the left hip has decreased 4.6% since initial exam on 10/23/2012. The density of the left hip has decreased 2.2% since most recent exam on 07/25/2016. The density of the right hip has decreased 0.2% since the initial exam on 10/23/2012. The density of the right hip has increased 2.9% since the most recent exam on 07/25/2016. FOLLOW-UP: Recommendation for the next bone density exam: 2 years. <Electronically signed by Sonny Abreu > 01/21/21 [id number]
== END ==
LOC: M WHC 15:09
PROVIDERS: ATTEND Family Medicine
DX: M85.80 Other specified disorders of bone density and structure, unspecified site (principal); M81.0 Age-related osteoporosis without current pathological fracture

== ENCOUNTER → 2021-06-08 | Outpatient (REF) | payer MEDICARE, MEDICAID ==
[~2021-06-08] MED LIST changes: -KLOR10TA76 PO; +OMEP40CA4; -OMEP40CA97; +POTA-136 PO
[2021-06-08 13:42] LABS: APPEARANCE, URINE CLOUDY (CLEAR); BACTERIA, URINE AUTO 3+ (NEGATIVE); BILIRUBIN, URINE AUTO NEGATIVE (NEGATIVE); BLOOD, URINE BLOOD 1+ (NEGATIVE); COLOR, URINE YELLOW (YELLOW); GLUCOSE, URINE (UA) AUTO 3+ mg/dL (NEGATIVE); KETONE, URINE AUTO NEGATIVE (NEGATIVE); LEUKOCYTE ESTERASE, URINE AUTO 3+ (NEGATIVE); NITRITE, URINE AUTO NEGATIVE (NEGATIVE); PROTEIN, URINE AUTO NEGATIVE (NEGATIVE); RBC, URINE AUTO 1 /HPF (0-3); SPECIFIC GRAVITY URINE AUTO 1.024 (1.002-1.035); SQUAMOUS EPITHELIAL CELL UR AU 2 /HPF (0-6); UROBILINOGEN, URINE AUTO 0.2 mg/dL (0.0-2.0); WBC, URINE AUTO TNTC /HPF (0-3)
== END ==
LOC: M SFHCPLAZ 12:41
PROVIDERS: ATTEND Physician Assistant Medical
DX: R30.0 Dysuria (principal)

== ENCOUNTER 2021-08-04 15:18 | Outpatient (CLI) | payer MEDICARE, MEDICAID ==
[~2021-08-04] VITALS: Ht 165.1 cm; Wt 100.5 kg
[~2021-08-04 15:18] MED LIST changes: +UNRESOLVED CLARIFICATION ENTRY XX SCH
[2021-08-04] MEDS ORDERED: ZOLEDRONIC ACID 5 MG in IV 1 EA IV ONE (15:30)
[2021-08-04 15:33] VITALS: BP 160/84
[2021-08-04 16:11] VITALS: BP 121/79
== END 2021-08-04 16:10 | disposition home or self-care (01) ==
LOC: M INFU 15:18
PROVIDERS: ATTEND Family Medicine
DX: M85.80 Other specified disorders of bone density and structure, unspecified site (principal); Z88.8 Allergy status to other drugs, medicaments and biological substances
CPT/HCPCS: 36415; 80053; 82306; 82728; 82747; 83036; 83970; 85025; 85046; 96365; J3489

== ENCOUNTER → 2021-08-04 | Outpatient (CLI) | payer MEDICARE, MEDICAID ==
[2021-08-04 13:18] LABS: BASO % 0.5 % (0.0-1.0); EOS # 0.1 10^3/uL (0.0-0.5); EOS % 2.3 % (0.0-3.0); HEMATOCRIT 34.5 % (36.0-47.0); LYMPH # 1.4 10^3/uL (1.5-5.0); LYMPH % 22.2 % (24.0-44.0); MEAN CORPUSCULAR HEMOGLOBIN 24.6 pg (27.0-33.0); MEAN CORPUSCULAR HGB CONC 31.9 g/dl (32.0-36.5); MEAN CORPUSCULAR VOLUME 77.2 fl (80.0-96.0); MONO # 0.5 10^3/uL (0.0-0.8); MONO % 8.5 % (2.0-8.0); NEUTROPHILS # 4.1 10^3/uL (1.5-8.5); PLATELET COUNT, AUTOMATED 203 10^3/uL (150-450); RED BLOOD COUNT 4.47 10^6/uL (4.00-5.40); WHITE BLOOD COUNT 6.1 10^3/uL (4.0-10.0)
[2021-08-04 13:22] LABS: HEMATOCRIT 34.5 % (36.0-47.0)
[2021-08-04 13:46] LABS: HEMOGLOBIN A1c 7.1 %
[2021-08-04 14:00] LABS: ALBUMIN 3.7 GM/DL (3.2-5.2); BILIRUBIN,TOTAL 0.7 MG/DL (0.2-1.0); CALCIUM LEVEL 10.3 MG/DL (8.8-10.2); CREATININE FOR GFR 1.18 MG/DL (0.55-1.30); GLOMERULAR FILTRATION RATE 58.9 (>45); POTASSIUM SERUM 4.8 MEQ/L (3.5-5.1); TOTAL PROTEIN 7.9 GM/DL (6.4-8.2)
[2021-08-04 14:13] LABS: PTH INTACT 307.4 PG/ML (18.5-88.0); TOTAL 25(OH) VITAMIN D 12.8 NG/ML (30.0-100.0)
== END ==
LOC: M PLALAB 09:05
PROVIDERS: ATTEND Family Medicine
DX: E11.9 Type 2 diabetes mellitus without complications (principal)

== ENCOUNTER → 2021-12-08 | Outpatient (CLI) | payer MEDICARE, MEDICAID ==
[~2021-12-08] MED LIST changes: -UNRESOLVED CLARIFICATION ENTRY XX SCH
[2021-12-08 17:09] LABS: HEMATOCRIT 34.6 % (36.0-47.0)
[2021-12-08 17:14] LABS: BASO % 0.4 % (0.0-1.0); EOS # 0.2 10^3/uL (0.0-0.5); EOS % 3.6 % (0.0-3.0); HEMOGLOBIN 11.4 g/dl (12.0-15.5); LYMPH # 1.6 10^3/uL (1.5-5.0); MEAN CORPUSCULAR HEMOGLOBIN 24.9 pg (27.0-33.0); MEAN CORPUSCULAR HGB CONC 32.6 g/dl (32.0-36.5); MEAN CORPUSCULAR VOLUME 76.4 fl (80.0-96.0); MONO # 0.9 10^3/uL (0.0-0.8); MONO % 12.6 % (2.0-8.0); NEUTROPHILS % 59.1 % (36.0-66.0); PLATELET COUNT, AUTOMATED 181 10^3/uL (150-450); RED BLOOD COUNT 4.58 10^6/uL (4.00-5.40); WHITE BLOOD COUNT 6.7 10^3/uL (4.0-10.0)
[2021-12-08 17:28] LABS: HEMOGLOBIN A1c 7.3 %
[2021-12-08 17:40] LABS: ALBUMIN 3.8 GM/DL (3.2-5.2); ALT/SGPT 25 U/L (12-78); BILIRUBIN,TOTAL 0.3 MG/DL (0.2-1.0); BLOOD UREA NITROGEN 23 MG/DL (7-18); CALCIUM LEVEL 11.8 MG/DL (8.8-10.2); CARBON DIOXIDE LEVEL 29 MEQ/L (21-32); CHLORIDE LEVEL 104 MEQ/L (98-107); CREATININE FOR GFR 1.07 MG/DL (0.55-1.30); FERRITIN 23 NG/ML (8-252); GLOMERULAR FILTRATION RATE > 60.0 (>45); GLUCOSE, FASTING 167 MG/DL (70-100); MAGNESIUM LEVEL 1.8 MG/DL (1.8-2.4); NT-PRO BNP 52 PG/ML (<125); POTASSIUM SERUM 4.8 MEQ/L (3.5-5.1); SODIUM LEVEL 143 MEQ/L (136-145); TOTAL PROTEIN 7.6 GM/DL (6.4-8.2)
[2021-12-08 17:48] LABS: PTH INTACT 315.5 PG/ML (18.5-88.0)
== END ==
LOC: M PLALAB 15:41
PROVIDERS: ATTEND Family Medicine
DX: E21.3 Hyperparathyroidism, unspecified (principal); D50.9 Iron deficiency anemia, unspecified

== ENCOUNTER → 2021-12-12 | Outpatient (CLI) | payer MEDICARE, MEDICAID ==
[~2021-12-12] MED LIST changes: +ISOVUE-370 76% 100ML VIAL As Ordered ONE
== END ==
LOC: M RAD 08:18
PROVIDERS: ATTEND Family Medicine
DX: C34.91 Malignant neoplasm of unspecified part of right bronchus or lung (principal)
CPT/HCPCS: 71260; Q9967

== ENCOUNTER → 2021-12-20 | Outpatient (CLI) | payer MEDICARE, MEDICAID ==
[~2021-12-20] MED LIST changes: -ISOVUE-370 76% 100ML VIAL As Ordered ONE
== END ==
LOC: M RAD 09:29
PROVIDERS: ATTEND Family Medicine
DX: N13.30 Unspecified hydronephrosis (principal); E21.3 Hyperparathyroidism, unspecified; N13.5 Crossing vessel and stricture of ureter without hydronephrosis; N20.0 Calculus of kidney

== ENCOUNTER → 2022-01-10 | Outpatient (CLI) | payer MEDICARE, MEDICAID ==
[2022-01-10 10:58] LABS: ALBUMIN 3.6 GM/DL (3.2-5.2); CALCIUM LEVEL 10.4 MG/DL (8.8-10.2); CREATININE FOR GFR 1.16 MG/DL (0.55-1.30); GLOMERULAR FILTRATION RATE 59.9 (>45); PHOSPHORUS LEVEL 3.1 MG/DL (2.5-4.9); POTASSIUM SERUM 5.1 MEQ/L (3.5-5.1)
[2022-01-10 11:06] LABS: TOTAL 25(OH) VITAMIN D 13.9 NG/ML (30.0-100.0)
== END ==
LOC: M PLALAB 08:56
PROVIDERS: ATTEND Family Medicine
DX: E21.3 Hyperparathyroidism, unspecified (principal)

== ENCOUNTER → 2022-01-25 | Outpatient (CLI) | payer MEDICARE, MEDICAID | LOC: M RAD 09:35 | PROVIDERS: ATTEND Family Medicine | DX: E21.3 Hyperparathyroidism, unspecified (principal) | CPT/HCPCS: 78070; 78803; A9500 ==

== ENCOUNTER → 2022-04-28 | Outpatient (CLI) | payer MEDICARE, MEDICAID ==
[~2022-04-28] MED LIST changes: +ALEN70TA87 PO; -FOSA70TA PO
[2022-04-28 10:33] LABS: BASO % 0.5 % (0.0-1.0); EOS # 0.1 10^3/uL (0.0-0.5); EOS % 2.1 % (0.0-3.0); HEMATOCRIT 36.1 % (36.0-47.0); HEMOGLOBIN 11.4 g/dl (12.0-15.5); LYMPH # 1.4 10^3/uL (1.5-5.0); MEAN CORPUSCULAR HEMOGLOBIN 24.8 pg (27.0-33.0); MEAN CORPUSCULAR HGB CONC 31.6 g/dl (32.0-36.5); MEAN CORPUSCULAR VOLUME 78.6 fl (80.0-96.0); MONO # 0.7 10^3/uL (0.0-0.8); MONO % 11.7 % (2.0-8.0); NEUTROPHILS # 3.4 10^3/uL (1.5-8.5); NEUTROPHILS % 60.2 % (36.0-66.0); PLATELET COUNT, AUTOMATED 173 10^3/uL (150-450); RED BLOOD COUNT 4.59 10^6/uL (4.00-5.40); WHITE BLOOD COUNT 5.7 10^3/uL (4.0-10.0)
[2022-04-28 12:28] LABS: ALBUMIN 3.7 GM/DL (3.2-5.2); BLOOD UREA NITROGEN 24 MG/DL (7-18); CALCIUM LEVEL 10.2 MG/DL (8.8-10.2); CARBON DIOXIDE LEVEL 26 MEQ/L (21-32); CHLORIDE LEVEL 110 MEQ/L (98-107); CHOLESTEROL LEVEL 175 MG/DL (<200); CHOLESTEROL RISK RATIO 2.777 (<5); CREATININE FOR GFR 1.09 MG/DL (0.55-1.30); FERRITIN 22 NG/ML (8-252); GLOMERULAR FILTRATION RATE > 60.0 (>45); GLUCOSE, FASTING 148 MG/DL (70-100); HDL CHOLESTEROL 63 MG/DL (>40); LDL CHOLESTEROL 98 MG/DL (<100); NON-HDL-C 112 MG/DL; PHOSPHORUS LEVEL 3.1 MG/DL (2.5-4.9); POTASSIUM SERUM 4.9 MEQ/L (3.5-5.1); SODIUM LEVEL 142 MEQ/L (136-145); TRIGLYCERIDES LEVEL 70 MG/DL (<150)
[2022-04-28 13:04] LABS: TOTAL 25(OH) VITAMIN D 10.8 NG/ML (30.0-100.0)
[2022-04-28 13:05] LABS: PTH INTACT 367.2 PG/ML (18.5-88.0); VITAMIN B12 LEVEL 1286 PG/ML (247-911)
== END ==
LOC: M PLALAB 08:19
PROVIDERS: ATTEND Family Medicine
DX: E78.2 Mixed hyperlipidemia (principal); E21.3 Hyperparathyroidism, unspecified; E55.9 Vitamin D deficiency, unspecified; D50.9 Iron deficiency anemia, unspecified; Z79.899 Other long term (current) drug therapy

== ENCOUNTER → 2022-06-05 | Outpatient (CLI) | payer MEDICARE, MEDICAID | LOC: M WHC 09:08 | PROVIDERS: ATTEND Family Medicine | DX: Z12.31 Encounter for screening mammogram for malignant neoplasm of breast (principal) ==

== ENCOUNTER 2022-08-28 10:41 | Outpatient (CLI) | payer MEDICARE, MEDICAID ==
[~2022-08-28 10:41] MED LIST changes: +ZOLEDRONIC ACID 5 MG in IV 1 EA IV ONE
[2022-08-28 10:45] VITALS: BP 139/68
[2022-08-28 11:34] VITALS: BP 129/73
== END 2022-08-28 11:30 | disposition home or self-care (01) ==
LOC: M INFU 10:41
PROVIDERS: ATTEND Family Medicine
DX: M85.80 Other specified disorders of bone density and structure, unspecified site (principal); Z88.8 Allergy status to other drugs, medicaments and biological substances
CPT/HCPCS: 96365; J3489

== ENCOUNTER → 2022-12-18 | Outpatient (CLI) | payer MEDICAID, MEDICARE ==
[~2022-12-18] MED LIST changes: +ISOVUE-370 76% 100ML VIAL As Ordered ONE; -ZOLEDRONIC ACID 5 MG in IV 1 EA IV ONE
[2022-12-18 15:59] LABS: BASO % 0.6 % (0.0-1.0); EOS # 0.1 10^3/uL (0.0-0.5); EOS % 1.7 % (0.0-3.0); HEMATOCRIT 33.9 % (36.0-47.0); LYMPH # 1.4 10^3/uL (1.5-5.0); LYMPH % 26.2 % (24.0-44.0); MEAN CORPUSCULAR HEMOGLOBIN 24.8 pg (27.0-33.0); MEAN CORPUSCULAR HGB CONC 32.4 g/dl (32.0-36.5); MEAN CORPUSCULAR VOLUME 76.5 fl (80.0-96.0); MONO # 0.6 10^3/uL (0.0-0.8); MONO % 10.3 % (2.0-8.0); NEUTROPHILS # 3.3 10^3/uL (1.5-8.5); NEUTROPHILS % 60.8 % (36.0-66.0); PLATELET COUNT, AUTOMATED 148 10^3/uL (150-450); RED BLOOD COUNT 4.43 10^6/uL (4.00-5.40); WHITE BLOOD COUNT 5.4 10^3/uL (4.0-10.0)
[2022-12-18 16:18] LABS: TOTAL PROTEIN,RANDOM URINE 13.6 MG/DL (0.0-14.0)
[2022-12-18 16:23] LABS: CREATININE,RANDOM URINE 49.4 MG/DL
[2022-12-18 16:52] LABS: ALBUMIN 3.6 G/DL (3.2-5.2); BLOOD UREA NITROGEN 20 MG/DL (9-23); CALCIUM LEVEL 9.8 MG/DL (8.3-10.6); CARBON DIOXIDE LEVEL 24 MMOL/L (20-31); CHLORIDE LEVEL 107 MMOL/L (98-107); CREATININE FOR GFR 1.05 MG/DL (0.55-1.30); GLOMERULAR FILTRATION RATE > 60.0 (>45); GLUCOSE, FASTING 131 MG/DL (74-106); MAGNESIUM LEVEL 1.7 MG/DL (1.8-2.4); POTASSIUM SERUM 4.4 MMOL/L (3.5-5.1); SODIUM LEVEL 138 MMOL/L (136-145)
[2022-12-18 18:28] LABS: PHOSPHORUS LEVEL 3.1 MG/DL (2.4-5.1)
== END ==
LOC: M RAD 14:12
PROVIDERS: ATTEND Family Medicine
DX: I10 Essential (primary) hypertension (principal); R10.13 Epigastric pain
CPT/HCPCS: 36415; 71260; 80069; 82570; 83735; 84156; 85025; Q9967

== ENCOUNTER → 2023-01-04 | Outpatient (REF) | payer MEDICARE, MEDICAID ==
[~2023-01-04] MED LIST changes: -ISOVUE-370 76% 100ML VIAL As Ordered ONE
== END ==
LOC: M SFHCPLAZ 16:15
PROVIDERS: ATTEND Family Medicine
DX: K76.0 Fatty (change of) liver, not elsewhere classified (principal); E21.3 Hyperparathyroidism, unspecified; D50.9 Iron deficiency anemia, unspecified; E11.9 Type 2 diabetes mellitus without complications; E78.2 Mixed hyperlipidemia

== ENCOUNTER → 2023-01-31 | Outpatient (REF) | payer MEDICARE, MEDICAID | LOC: M SFHCPLAZ 14:56 | PROVIDERS: ATTEND Family Medicine | DX: K76.0 Fatty (change of) liver, not elsewhere classified (principal); E21.3 Hyperparathyroidism, unspecified; D50.9 Iron deficiency anemia, unspecified; E11.9 Type 2 diabetes mellitus without complications; E78.2 Mixed hyperlipidemia ==

== ENCOUNTER → 2023-05-31 | Outpatient (REF) | payer MEDICARE, MEDICAID ==
[~2023-05-31] MED LIST changes: -OXYB5TAB10 PO; +OXYB5TAB11 PO
== END ==
LOC: M SFHCPLAZ 17:27
PROVIDERS: ATTEND Family Medicine
DX: E21.3 Hyperparathyroidism, unspecified (principal); D50.9 Iron deficiency anemia, unspecified; E11.9 Type 2 diabetes mellitus without complications; E53.8 Deficiency of other specified B group vitamins

== ENCOUNTER → 2023-05-31 | Outpatient (CLI) | payer MEDICARE, MEDICAID ==
[2023-05-31 10:46] LABS: BASO % 0.6 % (0.0-1.0); EOS # 0.1 10^3/uL (0.0-0.5); EOS % 1.9 % (0.0-3.0); HEMATOCRIT 36.7 % (36.0-47.0); HEMOGLOBIN 11.8 g/dl (12.0-15.5); LYMPH # 1.1 10^3/uL (1.5-5.0); LYMPH % 23.4 % (24.0-44.0); MEAN CORPUSCULAR HEMOGLOBIN 25.8 pg (27.0-33.0); MEAN CORPUSCULAR HGB CONC 32.2 g/dl (32.0-36.5); MEAN CORPUSCULAR VOLUME 80.1 fl (80.0-96.0); MONO # 0.5 10^3/uL (0.0-0.8); MONO % 10.4 % (2.0-8.0); NEUTROPHILS # 3.1 10^3/uL (1.5-8.5); NEUTROPHILS % 63.5 % (36.0-66.0); PLATELET COUNT, AUTOMATED 185 10^3/uL (150-450); RED BLOOD COUNT 4.58 10^6/uL (4.00-5.40); WHITE BLOOD COUNT 4.8 10^3/uL (4.0-10.0)
[2023-05-31 11:20] LABS: FERRITIN 19.6 NG/ML (7.3-270.7)
[2023-05-31 11:21] LABS: ALKALINE PHOSPHATASE 98 U/L (46-116); ALT/SGPT 20 U/L (7.0-40); AST/SGOT 17 U/L (<34); BILIRUBIN,TOTAL 0.5 MG/DL (0.3-1.2); BLOOD UREA NITROGEN 21 MG/DL (9-23); CARBON DIOXIDE LEVEL 28 MMOL/L (20-31); CHLORIDE LEVEL 105 MMOL/L (98-107); CHOLESTEROL LEVEL 200 MG/DL (<200); CHOLESTEROL RISK RATIO 2.83 (<5); CREATININE FOR GFR 0.81 MG/DL (0.55-1.30); GLOMERULAR FILTRATION RATE > 60.0 (>45); GLUCOSE, FASTING 155 MG/DL (74-106); HDL CHOLESTEROL 70.5 MG/DL (>40); HEMOGLOBIN A1c 6.7 % (4.0-6.0); LDL CHOLESTEROL 114.1 MG/DL (<100); NON-HDL-C 129.5 MG/DL; POTASSIUM SERUM 4.5 MMOL/L (3.5-5.1); SODIUM LEVEL 142 MMOL/L (136-145); TOTAL PROTEIN 7.5 G/DL (5.7-8.2); TRIGLYCERIDES LEVEL 77 MG/DL (<150)
== END ==
LOC: M PLALAB 07:25
PROVIDERS: ATTEND Family Medicine
DX: K76.0 Fatty (change of) liver, not elsewhere classified (principal); E21.3 Hyperparathyroidism, unspecified; D50.9 Iron deficiency anemia, unspecified; E11.9 Type 2 diabetes mellitus without complications; E78.2 Mixed hyperlipidemia

== ENCOUNTER → 2023-06-06 | Outpatient (CLI) | payer MEDICARE, MEDICAID | LOC: M WHC 07:41 | PROVIDERS: ATTEND Family Medicine | DX: Z12.31 Encounter for screening mammogram for malignant neoplasm of breast (principal) ==

== ENCOUNTER → 2023-07-11 | Outpatient (REF) | payer MEDICARE, MEDICAID ==
[2023-07-11 18:01] LABS: APPEARANCE, URINE CLOUDY (CLEAR); BACTERIA, URINE AUTO 2+ (NEGATIVE); BILIRUBIN, URINE AUTO NEGATIVE (NEGATIVE); BLOOD, URINE BLOOD 2+ (NEGATIVE); COLOR, URINE YELLOW (YELLOW); GLUCOSE, URINE (UA) AUTO 3+ mg/dL (NEGATIVE); KETONE, URINE AUTO NEGATIVE (NEGATIVE); LEUKOCYTE ESTERASE, URINE AUTO 3+ (NEGATIVE); NITRITE, URINE AUTO NEGATIVE (NEGATIVE); PROTEIN, URINE AUTO 1+ mg/dL (NEGATIVE); RBC, URINE AUTO TNTC /HPF (0-3); SPECIFIC GRAVITY URINE AUTO 1.014 (1.002-1.035); SQUAMOUS EPITHELIAL CELL UR AU 1 /HPF (0-6); UROBILINOGEN, URINE AUTO 0.2 mg/dL (0.0-2.0); WBC, URINE AUTO TNTC /HPF (0-3)
== END ==
LOC: M SFHCPLAZ 17:17
PROVIDERS: ATTEND Physician Assistant
DX: R39.15 Urgency of urination (principal)

== ENCOUNTER → 2023-09-17 | Outpatient (CLI) | payer MEDICARE, MEDICAID ==
[2023-09-17 16:02] LABS: HEMATOCRIT 37.2 % (36.0-47.0)
[2023-09-17 16:04] LABS: BASO % 0.8 % (0.0-1.0); EOS # 0.1 10^3/uL (0.0-0.5); EOS % 1.2 % (0.0-3.0); HEMATOCRIT 36.9 % (36.0-47.0); LYMPH # 1.2 10^3/uL (1.5-5.0); LYMPH % 25.4 % (24.0-44.0); MEAN CORPUSCULAR HEMOGLOBIN 26.3 pg (27.0-33.0); MEAN CORPUSCULAR HGB CONC 32.5 g/dl (32.0-36.5); MEAN CORPUSCULAR VOLUME 80.7 fl (80.0-96.0); MONO # 0.4 10^3/uL (0.0-0.8); MONO % 9.1 % (2.0-8.0); NEUTROPHILS % 63.3 % (36.0-66.0); PLATELET COUNT, AUTOMATED 217 10^3/uL (150-450); RED BLOOD COUNT 4.57 10^6/uL (4.00-5.40); WHITE BLOOD COUNT 4.8 10^3/uL (4.0-10.0)
[2023-09-17 16:29] LABS: FREE T4 1.25 NG/DL (0.89-1.76); THYROID STIMULATING HORMONE 0.551 uIU/ML (0.55-4.78)
[2023-09-17 16:30] LABS: IRON (FE) 90 UG/DL (50-170)
[2023-09-17 16:31] LABS: TOTAL IRON BINDING CAPACITY 360 UG/DL (250-425)
[2023-09-17 16:32] LABS: VITAMIN B12 LEVEL 892 PG/ML (211-911)
[2023-09-17 17:06] LABS: ALKALINE PHOSPHATASE 102 U/L (46-116); ALT/SGPT 19 U/L (7.0-40); AST/SGOT 17 U/L (<34); BILIRUBIN,TOTAL 0.4 MG/DL (0.3-1.2); BLOOD UREA NITROGEN 21 MG/DL (9-23); CALCIUM LEVEL 12.3 MG/DL (8.3-10.6); CARBON DIOXIDE LEVEL 28 MMOL/L (20-31); CHLORIDE LEVEL 105 MMOL/L (98-107); CREATININE FOR GFR 0.92 MG/DL (0.55-1.30); GLOMERULAR FILTRATION RATE > 60.0 (>45); GLUCOSE, FASTING 104 MG/DL (74-106); POTASSIUM SERUM 4.7 MMOL/L (3.5-5.1); PTH INTACT 426.4 PG/ML (18.5-88.0); SODIUM LEVEL 139 MMOL/L (136-145); TOTAL PROTEIN 7.6 G/DL (5.7-8.2)
[2023-09-17 17:18] LABS: HEMOGLOBIN A1c 6.9 % (4.0-6.0)
== END ==
LOC: M PLALAB 13:01
PROVIDERS: ATTEND Family Medicine
DX: E21.3 Hyperparathyroidism, unspecified (principal); D50.9 Iron deficiency anemia, unspecified; E11.9 Type 2 diabetes mellitus without complications; E53.8 Deficiency of other specified B group vitamins

== ENCOUNTER → 2023-09-18 | Outpatient (CLI) | payer MEDICARE, MEDICAID | LOC: M WHC 14:03 | PROVIDERS: ATTEND Family Medicine | DX: Z12.39 Encounter for other screening for malignant neoplasm of breast (principal); M85.80 Other specified disorders of bone density and structure, unspecified site ==

== ENCOUNTER → 2023-09-19 | Outpatient (CLI) | payer MEDICARE, MEDICAID ==
[~2023-09-19] VITALS: Ht 175.3 cm; Wt 93.6 kg
[~2023-09-19] MED LIST changes: +ZOLEDRONIC ACID 5 MG in IV 1 EA IV ONE
[2023-09-19 12:50] VITALS: BP 156/80; O2SAT 97
[2023-09-19 13:37] VITALS: BP 133/75; O2SAT 99
== END ==
LOC: M INFU 12:17
PROVIDERS: ATTEND Family Medicine
DX: M85.80 Other specified disorders of bone density and structure, unspecified site (principal); Z88.8 Allergy status to other drugs, medicaments and biological substances
CPT/HCPCS: 96413; J3489

== ENCOUNTER → 2023-09-26 | Outpatient (CLI) | payer MEDICARE, MEDICAID ==
[~2023-09-26] MED LIST changes: -ZOLEDRONIC ACID 5 MG in IV 1 EA IV ONE
== END ==
LOC: M WHC 11:02
PROVIDERS: ATTEND Family Medicine
DX: M81.0 Age-related osteoporosis without current pathological fracture (principal)

== ENCOUNTER → 2023-10-08 | Outpatient (CLI) | payer MEDICARE, MEDICAID ==
[~2023-10-08] MED LIST changes: -OXYB5TAB11 PO; +OXYB5TAB14 PO
== END ==
LOC: M RAD 09:48
PROVIDERS: ATTEND Family Medicine
DX: N18.31 Chronic kidney disease, stage 3a (principal)

== ENCOUNTER → 2023-10-09 | Outpatient (REF) | payer MEDICARE, MEDICAID | LOC: M SFHCPLAZ 09:07 | PROVIDERS: ATTEND Family Medicine | DX: E21.3 Hyperparathyroidism, unspecified (principal); D50.9 Iron deficiency anemia, unspecified; E11.9 Type 2 diabetes mellitus without complications; E78.2 Mixed hyperlipidemia ==

== ENCOUNTER → 2023-10-25 | Outpatient (REF) | payer MEDICARE, MEDICAID | LOC: M SFHCPLAZ 09:21 | PROVIDERS: ATTEND Family Medicine | DX: E21.3 Hyperparathyroidism, unspecified (principal); D50.9 Iron deficiency anemia, unspecified; E11.9 Type 2 diabetes mellitus without complications; E78.2 Mixed hyperlipidemia ==

== ENCOUNTER → 2023-11-13 | Outpatient (CLI) | payer MEDICARE, MEDICAID ==
[~2023-11-13] MED LIST changes: +ISOVUE-370 76% 100ML VIAL ONE
== END ==
LOC: M PLAIMG 08:45
PROVIDERS: ATTEND Family Medicine
DX: N13.30 Unspecified hydronephrosis (principal)
CPT/HCPCS: 74177; Q9967

== ENCOUNTER → 2023-12-24 | Outpatient (CLI) | payer MEDICARE, MEDICAID ==
[~2023-12-24] MED LIST changes: -ISOVUE-370 76% 100ML VIAL ONE
[2023-12-24 12:50] LABS: BASO % 0.5 % (0.0-1.0); EOS # 0.1 10^3/uL (0.0-0.5); EOS % 1.3 % (0.0-3.0); HEMATOCRIT 35.5 % (36.0-47.0); HEMOGLOBIN 11.9 g/dl (12.0-15.5); LYMPH # 1.4 10^3/uL (1.5-5.0); MEAN CORPUSCULAR HGB CONC 33.5 g/dl (32.0-36.5); MEAN CORPUSCULAR VOLUME 80.5 fl (80.0-96.0); MONO # 0.5 10^3/uL (0.0-0.8); MONO % 8.3 % (2.0-8.0); NEUTROPHILS # 4.2 10^3/uL (1.5-8.5); NEUTROPHILS % 67.6 % (36.0-66.0); PLATELET COUNT, AUTOMATED 160 10^3/uL (150-450); RED BLOOD COUNT 4.41 10^6/uL (4.00-5.40); WHITE BLOOD COUNT 6.2 10^3/uL (4.0-10.0)
[2023-12-24 12:55] LABS: ALBUMIN 3.7 G/DL (3.2-5.2); BILIRUBIN,TOTAL 0.3 MG/DL (0.3-1.2); CALCIUM LEVEL 12.4 MG/DL (8.3-10.6); CHOLESTEROL RISK RATIO 3.2 (<5); CREATININE FOR GFR 1.17 MG/DL (0.55-1.30); HDL CHOLESTEROL 53.6 MG/DL (>40); LDL CHOLESTEROL 99.4 MG/DL (<100); NON-HDL-C 118.4 MG/DL; PTH INTACT 600.3 PG/ML (18.5-88.0); TOTAL PROTEIN 7.1 G/DL (5.7-8.2)
[2023-12-24 12:57] LABS: FERRITIN 31.5 NG/ML (7.3-270.7)
[2023-12-24 13:18] LABS: HEMOGLOBIN A1c 6.5 % (4.0-6.0)
== END ==
LOC: M PLALAB 09:15
PROVIDERS: ATTEND Family Medicine
DX: E21.3 Hyperparathyroidism, unspecified (principal); E78.00 Pure hypercholesterolemia, unspecified; D50.9 Iron deficiency anemia, unspecified

== ENCOUNTER → 2024-01-23 | Outpatient (CLI) | payer MEDICARE, MEDICAID | LOC: M RAD 07:23 | PROVIDERS: ATTEND Internal Medicine Critical Care Medicine | DX: C34.11 Malignant neoplasm of upper lobe, right bronchus or lung (principal) ==

== ENCOUNTER → 2024-03-25 | Outpatient (CLI) | payer MEDICARE ==
[2024-03-25 10:32] LABS: BASO # 0.1 10^3/uL (0.0-0.2); BASO % 0.6 % (0.0-1.0); EOS # 0.2 10^3/uL (0.0-0.5); EOS % 1.9 % (0.0-3.0); HEMATOCRIT 34.1 % (36.0-47.0); LYMPH # 1.1 10^3/uL (1.5-5.0); LYMPH % 12.9 % (24.0-44.0); MEAN CORPUSCULAR HEMOGLOBIN 25.5 pg (27.0-33.0); MEAN CORPUSCULAR HGB CONC 32.3 g/dl (32.0-36.5); MEAN CORPUSCULAR VOLUME 78.9 fl (80.0-96.0); MONO # 0.8 10^3/uL (0.0-0.8); MONO % 9.8 % (2.0-8.0); NEUTROPHILS # 6.2 10^3/uL (1.5-8.5); NEUTROPHILS % 74.2 % (36.0-66.0); PLATELET COUNT, AUTOMATED 225 10^3/uL (150-450); RED BLOOD COUNT 4.32 10^6/uL (4.00-5.40); WHITE BLOOD COUNT 8.4 10^3/uL (4.0-10.0)
[2024-03-25 10:58] LABS: HEMOGLOBIN A1c 10.4 % (4.0-6.0)
[2024-03-25 11:08] LABS: FERRITIN 48.1 NG/ML (7.3-270.7)
[2024-03-25 11:25] LABS: ALBUMIN 3.6 G/DL (3.2-5.2); ALKALINE PHOSPHATASE 93 U/L (46-116); ALT/SGPT 11 U/L (7.0-40); AST/SGOT 11 U/L (<34); BILIRUBIN,TOTAL 0.5 MG/DL (0.3-1.2); BLOOD UREA NITROGEN 22 MG/DL (9-23); CALCIUM LEVEL 8.4 MG/DL (8.3-10.6); CARBON DIOXIDE LEVEL 26 MMOL/L (20-31); CHLORIDE LEVEL 103 MMOL/L (98-107); CREATININE FOR GFR 1.03 MG/DL (0.55-1.30); GLOMERULAR FILTRATION RATE > 60.0 (>39); GLUCOSE, FASTING 323 MG/DL (74-106); POTASSIUM SERUM 4.9 MMOL/L (3.5-5.1); SODIUM LEVEL 138 MMOL/L (136-145); TOTAL PROTEIN 7.7 G/DL (5.7-8.2)
== END ==
LOC: M PLALAB 08:49
PROVIDERS: ATTEND Family Medicine
DX: E21.3 Hyperparathyroidism, unspecified (principal); D50.9 Iron deficiency anemia, unspecified; E11.9 Type 2 diabetes mellitus without complications

== ENCOUNTER → 2024-04-15 | Outpatient (REF) | payer MEDICARE, MEDICAID | LOC: M SFHCPLAZ 15:42 | PROVIDERS: ATTEND Family Medicine | DX: E21.3 Hyperparathyroidism, unspecified (principal); D50.9 Iron deficiency anemia, unspecified; E11.9 Type 2 diabetes mellitus without complications; E53.8 Deficiency of other specified B group vitamins ==

== ENCOUNTER → 2024-05-19 | Outpatient (CLI) | payer MEDICARE, MEDICAID | LOC: M CARPUL 10:09 | PROVIDERS: ATTEND Family Medicine | DX: I50.32 Chronic diastolic (congestive) heart failure (principal) ==

== ENCOUNTER → 2024-06-12 | Outpatient (CLI) | payer MEDICARE, MEDICAID | LOC: M WHC 09:41 | PROVIDERS: ATTEND Family Medicine | DX: Z12.31 Encounter for screening mammogram for malignant neoplasm of breast (principal); R92.313 Mammographic fatty tissue density, bilateral breasts ==

== ENCOUNTER → 2024-07-09 | Outpatient (CLI) | payer MEDICARE, MEDICAID ==
[2024-07-09 18:55] LABS: BASO # 0.1 10^3/uL (0.0-0.2); BASO % 0.9 % (0.0-1.0); EOS # 0.1 10^3/uL (0.0-0.5); EOS % 1.8 % (0.0-3.0); HEMATOCRIT 35.4 % (36.0-47.0); HEMOGLOBIN 11.5 g/dl (12.0-15.5); LYMPH # 1.7 10^3/uL (1.5-5.0); LYMPH % 31.3 % (24.0-44.0); MEAN CORPUSCULAR HEMOGLOBIN 24.8 pg (27.0-33.0); MEAN CORPUSCULAR HGB CONC 32.5 g/dl (32.0-36.5); MEAN CORPUSCULAR VOLUME 76.5 fl (80.0-96.0); MONO # 0.7 10^3/uL (0.0-0.8); NEUTROPHILS # 2.9 10^3/uL (1.5-8.5); NEUTROPHILS % 53.6 % (36.0-66.0); PLATELET COUNT, AUTOMATED 196 10^3/uL (150-450); RED BLOOD COUNT 4.63 10^6/uL (4.00-5.40); WHITE BLOOD COUNT 5.5 10^3/uL (4.0-10.0)
[2024-07-09 19:26] LABS: ALBUMIN 3.7 G/DL (3.2-5.2); ALKALINE PHOSPHATASE 61 U/L (35-104); ALT/SGPT 19 U/L (7.0-40); AST/SGOT 11 U/L (<34); BILIRUBIN,TOTAL 0.3 MG/DL (0.3-1.2); BLOOD UREA NITROGEN 32 MG/DL (9-23); CALCIUM LEVEL 9.4 MG/DL (8.3-10.6); CARBON DIOXIDE LEVEL 28 MMOL/L (20-31); CHLORIDE LEVEL 103 MMOL/L (98-107); CREATININE FOR GFR 1.06 MG/DL (0.55-1.30); GLOMERULAR FILTRATION RATE > 60.0 (>39); GLUCOSE, FASTING 146 MG/DL (74-106); POTASSIUM SERUM 4.9 MMOL/L (3.5-5.1); PTH INTACT 52.1 PG/ML (18.5-88.0); SODIUM LEVEL 140 MMOL/L (136-145); TOTAL PROTEIN 7.8 G/DL (5.7-8.2)
[2024-07-09 19:30] LABS: FERRITIN 22.9 NG/ML (7.3-270.7); TOTAL 25(OH) VITAMIN D 50.5 NG/ML (20.0-100.0)
[2024-07-09 19:31] LABS: HEMOGLOBIN A1c 7.7 % (4.0-6.0); VITAMIN B12 LEVEL 834 PG/ML (211-911)
== END ==
LOC: M PLALAB 15:17
PROVIDERS: ATTEND Family Medicine
DX: E21.3 Hyperparathyroidism, unspecified (principal); D50.9 Iron deficiency anemia, unspecified

== ENCOUNTER → 2024-09-16 | Outpatient (REF) | payer MEDICARE, MEDICAID | LOC: M SFHCPLAZ 09:26 | PROVIDERS: ATTEND Family Medicine | DX: Z51.81 Encounter for therapeutic drug level monitoring (principal); Z53.9 Procedure and treatment not carried out, unspecified reason ==

== ENCOUNTER → 2024-09-19 | Outpatient (CLI) | payer MEDICARE, MEDICAID ==
[2024-09-19 10:17] LABS: INR 0.92; PROTHROMBIN TIME 12.6 SECONDS (12.5-14.5)
[2024-09-19 11:34] LABS: HEMATOCRIT 35.5 % (36.0-47.0); HEMOGLOBIN 11.7 g/dl (12.0-15.5); MEAN CORPUSCULAR HEMOGLOBIN 25.8 pg (27.0-33.0); MEAN CORPUSCULAR VOLUME 78.2 fl (80.0-96.0); PLATELET COUNT, AUTOMATED 174 10^3/uL (150-450); RED BLOOD COUNT 4.54 10^6/uL (4.00-5.40); WHITE BLOOD COUNT 4.9 10^3/uL (4.0-10.0)
[2024-09-19 12:03] LABS: ALBUMIN 3.7 G/DL (3.2-5.2); ALKALINE PHOSPHATASE 58 U/L (35-104); ALT/SGPT 21 U/L (7.0-40); AST/SGOT 17 U/L (<34); BILIRUBIN,TOTAL 0.5 MG/DL (0.3-1.2); BLOOD UREA NITROGEN 31 MG/DL (9-23); CALCIUM LEVEL 8.9 MG/DL (8.3-10.6); CARBON DIOXIDE LEVEL 27 MMOL/L (20-31); CHLORIDE LEVEL 108 MMOL/L (98-107); CREATININE FOR GFR 0.99 MG/DL (0.55-1.30); GLOMERULAR FILTRATION RATE > 60.0 (>39); GLUCOSE, FASTING 155 MG/DL (74-106); POTASSIUM SERUM 4.9 MMOL/L (3.5-5.1); SODIUM LEVEL 142 MMOL/L (136-145); TOTAL PROTEIN 7.3 G/DL (5.7-8.2)
== END ==
LOC: M PLALAB 08:54
PROVIDERS: ATTEND Family Medicine
DX: Z51.81 Encounter for therapeutic drug level monitoring (principal); Z79.899 Other long term (current) drug therapy

== ENCOUNTER 2024-09-22 14:07 | Outpatient (CLI) | payer MEDICARE, MEDICAID ==
[2024-09-22] MEDS: ZOLEDRONIC ACID 5 MG in IV 1 EA IV ONE (14:18)
[2024-09-22 14:26] VITALS: BP 124/75; O2SAT 95
== END 2024-09-22 15:00 ==
LOC: M INFU 14:07
PROVIDERS: ATTEND Family Medicine
DX: M85.80 Other specified disorders of bone density and structure, unspecified site (principal); Z88.8 Allergy status to other drugs, medicaments and biological substances; Z91.048 Other nonmedicinal substance allergy status
CPT/HCPCS: 96365; J3489

== ENCOUNTER → 2024-12-22 | Outpatient (CLI) | payer MEDICARE, MEDICAID ==
[~2024-12-22] MED LIST changes: -FLOM0.4C39 PO; +TAMS-18 PO
[2024-12-22 11:24] LABS: BASO % 0.8 % (0.0-1.0); EOS # 0.1 10^3/uL (0.0-0.5); EOS % 1.9 % (0.0-3.0); HEMATOCRIT 35.4 % (36.0-47.0); HEMOGLOBIN 11.4 g/dl (12.0-15.5); LYMPH # 1.4 10^3/uL (1.5-5.0); LYMPH % 27.1 % (24.0-44.0); MEAN CORPUSCULAR HEMOGLOBIN 25.4 pg (27.0-33.0); MEAN CORPUSCULAR HGB CONC 32.2 g/dl (32.0-36.5); MEAN CORPUSCULAR VOLUME 78.8 fl (80.0-96.0); MONO # 0.7 10^3/uL (0.0-0.8); NEUTROPHILS % 56.8 % (36.0-66.0); PLATELET COUNT, AUTOMATED 185 10^3/uL (150-450); RED BLOOD COUNT 4.49 10^6/uL (4.00-5.40); WHITE BLOOD COUNT 5.3 10^3/uL (4.0-10.0)
[2024-12-22 11:40] LABS: HEMOGLOBIN A1c 7.6 % (4.0-6.0)
[2024-12-22 11:48] LABS: CREATININE, URINE 59.3 MG/DL
[2024-12-22 11:49] LABS: MAU/CREAT RATIO 52.2 MCG/MG (0.0-30.0)
[2024-12-22 11:51] LABS: ALBUMIN 3.7 G/DL (3.2-5.2); BILIRUBIN,TOTAL 0.4 MG/DL (0.3-1.2); CALCIUM LEVEL 9.7 MG/DL (8.3-10.6); CREATININE FOR GFR 1.06 MG/DL (0.55-1.30); FERRITIN 19.8 NG/ML (7.3-270.7); GLOMERULAR FILTRATION RATE 56.2 (>39); POTASSIUM SERUM 4.7 MMOL/L (3.5-5.1); TOTAL PROTEIN 7.2 G/DL (5.7-8.2)
[2024-12-22 11:52] LABS: TOTAL 25(OH) VITAMIN D 54.9 NG/ML (20.0-100.0)
[2024-12-22 17:11] LABS: PTH INTACT 29.8 PG/ML (18.5-88.0)
== END ==
LOC: M PLALAB 07:45
PROVIDERS: ATTEND Family Medicine
DX: D50.9 Iron deficiency anemia, unspecified (principal); E21.0 Primary hyperparathyroidism; E11.9 Type 2 diabetes mellitus without complications

== ENCOUNTER 2025-01-06 07:16 | Outpatient (CLI) | payer MEDICARE, MEDICAID ==
[~2025-01-06] VITALS: Ht 175.3 cm; Wt 99.1 kg
[~2025-01-06 07:16] MED LIST changes: +ALBUTEROL SULFATE 2.5MG/0.5ML INH CONCENTRATE NEB SOLN INH PRN; +EPINEPHrine INJ 1 MG/ML 1ML AMP IM PRN; +diphenhydrAMINE 50MG/ML VIAL IV PRN; +methylPREDNISolone 125MG 2ML VIAL IV PRN
[2025-01-06 07:37] VITALS: BP 159/81; O2SAT 97
[2025-01-06] MEDS: IRON SUCROSE 500 MG in NS 250 ML OVER 4 HRS IV ONE (07:49)
[2025-01-06 09:00] VITALS: BP 139/79; O2SAT 97
[2025-01-06 10:00] VITALS: BP 133/71; O2SAT 98
[2025-01-06 11:45] VITALS: BP 129/77; O2SAT 100
== END 2025-01-06 11:54 | disposition home or self-care (01) ==
LOC: M INFU 07:16
PROVIDERS: ATTEND Family Medicine
DX: D50.9 Iron deficiency anemia, unspecified (principal); Z88.8 Allergy status to other drugs, medicaments and biological substances; Z91.048 Other nonmedicinal substance allergy status
CPT/HCPCS: 96365; 96366; J1756

== ENCOUNTER → 2025-03-19 | Outpatient (CLI) | payer MEDICARE, MEDICAID ==
[~2025-03-19] MED LIST changes: -ALBUTEROL SULFATE 2.5MG/0.5ML INH CONCENTRATE NEB SOLN INH PRN; -EPINEPHrine INJ 1 MG/ML 1ML AMP IM PRN; -diphenhydrAMINE 50MG/ML VIAL IV PRN; -methylPREDNISolone 125MG 2ML VIAL IV PRN
== END ==
LOC: M PLAIMG 08:58
DX: M47.812 Spondylosis without myelopathy or radiculopathy, cervical region (principal)

== ENCOUNTER → 2025-03-25 | Outpatient (CLI) | payer MEDICARE, MEDICAID | LOC: M RAD 06:34 | PROVIDERS: ATTEND Internal Medicine Critical Care Medicine | DX: J98.4 Other disorders of lung (principal); I25.10 Atherosclerotic heart disease of native coronary artery without angina pectoris; I25.84 Coronary atherosclerosis due to calcified coronary lesion; N28.1 Cyst of kidney, acquired; Z90.2 Acquired absence of lung [part of]; F17.218 Nicotine dependence, cigarettes, with other nicotine-induced disorders ==

== ENCOUNTER → 2025-06-16 | Outpatient (CLI) | payer MEDICARE, MEDICAID | LOC: M WHC 06:50 | PROVIDERS: ATTEND Family Medicine | DX: Z12.31 Encounter for screening mammogram for malignant neoplasm of breast (principal); R92.323 Mammographic fibroglandular density, bilateral breasts; D50.9 Iron deficiency anemia, unspecified; E21.0 Primary hyperparathyroidism; E11.9 Type 2 diabetes mellitus without complications; I50.32 Chronic diastolic (congestive) heart failure; K75.81 Nonalcoholic steatohepatitis (NASH) ==

== ENCOUNTER → 2025-06-16 | Outpatient (CLI) | payer MEDICARE, MEDICAID ==
[2025-06-16 11:33] LABS: BASO # 0.0 10^3/uL (0.0-0.2); BASO % 0.3 % (0.0-1.0); EOS # 0.1 10^3/uL (0.0-0.5); EOS % 1.7 % (0.0-3.0); LYMPH # 1.1 10^3/uL (1.5-5.0); LYMPH % 15.2 % (24.0-44.0); MONO # 0.6 10^3/uL (0.0-0.8); MONO % 8.1 % (2.0-8.0); NEUTROPHILS # 5.4 10^3/uL (1.5-8.5); NEUTROPHILS % 74.4 % (36.0-66.0); PLATELET COUNT, AUTOMATED 241 10^3/uL (150-450)
[2025-06-16 11:58] LABS: ALT/SGPT 27.0 U/L (7.0-40); AST/SGOT 18.0 U/L (<34); CALCIUM LEVEL 8.9 MG/DL (8.3-10.6); CARBON DIOXIDE LEVEL 27.0 MMOL/L (20-31); CHLORIDE LEVEL 103.0 MMOL/L (98-107); CHOLESTEROL LEVEL 142.0 MG/DL (<200); CHOLESTEROL RISK RATIO 2.82 (<5); CREATININE FOR GFR 1.37 MG/DL (0.55-1.30); CREATININE, URINE 81.5 MG/DL; GLOMERULAR FILTRATION RATE 41.3 (>39); LDL CHOLESTEROL 71.0 MG/DL (<100); NON-HDL-C 91.8 MG/DL; POTASSIUM SERUM 4.8 MMOL/L (3.5-5.1); PTH INTACT 42.7 PG/ML (18.5-88.0); SODIUM LEVEL 139.0 MMOL/L (136-145); TRIGLYCERIDES LEVEL 104.0 MG/DL (<150)
[2025-06-16 11:59] LABS: MALB URINE SIEMENS 18.0 MG/L; MAU/CREAT RATIO 22.0 MCG/MG (0.0-30.0)
[2025-06-16 12:02] LABS: TOTAL 25(OH) VITAMIN D 59.3 NG/ML (20.0-100.0); VITAMIN B12 LEVEL 791.0 PG/ML (211-911)
[2025-06-16 12:03] LABS: ESTIMATED AVERAGE GLUCOSE 177.0 MG/DL (60-110)
== END ==
LOC: M PLALAB 07:38
PROVIDERS: ATTEND Family Medicine
DX: D50.9 Iron deficiency anemia, unspecified (principal); E21.0 Primary hyperparathyroidism; E11.9 Type 2 diabetes mellitus without complications; I50.32 Chronic diastolic (congestive) heart failure; K75.81 Nonalcoholic steatohepatitis (NASH)